=== PATIENT | female | born 1945 | race Caucasian/White ===

== ENCOUNTER → 2021-11-11 10:09 | Outpatient (BNVA) | payer MEDICARE, SELFPAY | PROVIDERS: Family Provider Family Medicine; Visit Provider Family Medicine | DX: I10 Essential (primary) hypertension (principal); Z76.89 Persons encountering health services in other specified circumstances; Z53.20 Procedure and treatment not carried out because of patient's decision for unspecified reasons | CPT/HCPCS: 80053; 80061; 85025 ==

== ENCOUNTER → 2022-05-12 10:01 | Outpatient (BNVA) | payer MEDICARE, SELFPAY | PROVIDERS: Family Provider Family Medicine; Visit Provider Family Medicine | DX: N18.30 Chronic kidney disease, stage 3 unspecified (principal); I10 Essential (primary) hypertension; N18.31 Chronic kidney disease, stage 3a | CPT/HCPCS: 80048 ==

== ENCOUNTER → 2022-11-03 10:04 | Outpatient (BNVA) | payer MEDICARE, SELFPAY | PROVIDERS: Family Provider Family Medicine; Visit Provider Family Medicine | DX: I10 Essential (primary) hypertension (principal) | CPT/HCPCS: 80053; 80061; 85025 ==

== ENCOUNTER → 2023-05-11 09:23 | Outpatient (BNVA) | payer MEDICARE, SELFPAY | PROVIDERS: Family Provider Family Medicine; Visit Provider Family Medicine | DX: I10 Essential (primary) hypertension (principal) | CPT/HCPCS: 80048; 82043 ==

== ENCOUNTER 2023-08-02 18:45 | Emergency (ER) | payer MEDICARE, SELFPAY ==
[2023-08-02 18:51] VITALS: BP 141/81; PULSE 85; RESP 16; TEMP 37.2; O2SAT 97
--- NOTE | 2023-08-02 19:03 | XRR_ITS ---
PROCEDURE INFORMATION: Exam: XR Chest Exam date and time: 08/02/2023 7:21 PM Age: 78 years old Clinical indication: Other: Weakness; Additional info: Weak TECHNIQUE: Imaging protocol: Radiologic exam of the chest. Views: 1 view. COMPARISON: No relevant prior studies available. FINDINGS: Lungs: No consolidation. Pleural spaces: No pleural effusion. No pneumothorax. Heart/Mediastinum: No cardiomegaly. Bones/joints: No acute findings. XR/XR chest 1V portable [id number] IMPRESSION: No acute findings.
--- NOTE | 2023-08-02 19:03 | ECG_ITS ---
[facility] Test Date: 2023-08-02 Pat Name: Britany Alvarenga Department: Room: Gender: Female Personal Trainer: : 1945 Requested By: Hakeem Shaffer Order Number: [id number] Ok MD: Guille Pollock M.D. Measurements Intervals [place] Rate: 82 P: 61 KS: 153 QRS: 66 QRSD: 74 T: 47 QT: 369 QTc: 432 Interpretive Statements SINUS RHYTHM No previous ECG available for comparison Electronically Signed On 08-03-2023 12:31:50 CDT by Guille Pollock M.D. [id number]
[2023-08-02 19:09] LABS: Basophils % 0.6 %; Eosinophils # 0.1 10^3/uL (0.0-0.8); Hematocrit 38.9 % (36-47); Lymphocytes # 0.8 10^3/uL (0.8-4.8); Lymphocytes % 10.6 %; Mean Corpuscular HGB Conc 33.9 g/dL (30-55); Mean Corpuscular Hemoglobin 29.7 pg (27-33); Mean Corpuscular Volume 87.6 fl (85-98); Mean Platelet Volume 9.1 fL (7.4-10.4); Monocytes # 0.4 10^3/uL (0.2-0.9); Monocytes % 5.7 %; Neutrophils # 5.87 10^3/uL (1.8-7.7); Nucleated Red Blood Cells % 0 %; Platelet Count 202 10^3/cmm (157-399); Red Blood Count 4.44 10^6/uL (3.85-5.65); Red Cell Distribution Width 13.1 % (12.1-15.1); White Blood Count 7.16 10^3/uL (3.29-11.43)
--- NOTE | 2023-08-02 19:16 | ED_ITS ---
Documented by User: RUTH Mcgovern 08/02/23 21:18 HPI - Weakness 2 General: Chief complaint: Weakness Stated complaint: Gen weakness Time Seen by Provider: 08/02/23 18:56 Source: patient Mode of arrival: EMS Limitations: no limitations History of Present Illness: This patient is a 78-year-old female presenting to the emergency department via EMS due to weakness for the past week. She notes that her symptoms began last Wednesday with some upper respiratory symptoms. While she states these have gradually subsided, her weakness and decreased appetite have persisted as she states today was her worst day. She is from [facility] and states she takes care of herself, however is only ambulatory via wheelchair. She states specifically that she is having increased difficulty transferring from wheelchair to bed and vice versa. She does note that her fluid intake has decreased over the past week as well as food. She does note past medical history of hypertension, but states she is otherwise healthy. She is denying any breathing difficulties, chest pain, urinary symptoms, dizziness or lightheadedness, palpitations, syncope, or any other symptoms. She denies any recent medication changes. MD Complaint: generalized weakness Onset (ago): week(s) Duration: constant Context: other (Preceded by upper respiratory infection) Associated symptoms: Reports decreased appetite; Denies chest pain, chills, confusion, dysuria, fever(s), headache(s), nausea or vomiting Review of Systems 2 General: Reports: 10 or more systems reviewed and unremarkable except in HPI and below Const: Reports: change in appetite and other (Weakness); Denies: fever(s), chills or fatigue Eyes: Denies: change in vision ENMT: Denies: throat pain, ear or mastoid pain or nasal discharge Card: Denies: chest pain, palpitations, swelling of feet/ankles or lightheadedness Resp: Denies: dyspnea, productive cough or wheezing GI: Denies: abdominal pain, nausea, vomiting, diarrhea or constipation : Denies: flank pain, difficulty voiding, dysuria or urinary frequency Musc: Denies: neck pain, back pain or joint pain Skin/Breast: Denies: rash Neuro: Denies: headache(s), numbness in extremities, frequent falls, dizziness, confusion or behavioral changes PFSH ED 2 PFSH: Medical History Kidney disease, chronic, stage III (GFR 30-59 ml/min) Benign essential HTN Surgical History No significant past surgical history Family History Other CAD (coronary artery disease) Dementia Hypertension Denies family history of Diabetes Clotting disorder Hyperlipidemia Psychiatric illness Chronic kidney disease (CKD) Suicide Anesthesia complication Bleeding disorder Family history of premature coronary artery disease Lung disease Cancer Stroke Social History Smoking and tobacco/nicotine status: never used tobacco/nicotine Alcohol intake: current Alcohol intake frequency: 0-2 Drinks per Day Substance/Drug Use: never Adopted: No Caregiver/support person: No Lives independently: No Housing: Assisted Living Facility Physical Exam 2 Const: COMMON NORMALS: no acute distress, patient oriented x3 and no limitations GENERAL APPEARANCE: cooperative, comfortable and well developed ORIENTATION/CONSCIOUSNESS: Yes awake, Yes oriented to person, Yes oriented to place and Yes oriented to time HENMT: COMMON NORMALS: normocephalic, atraumatic and hearing grossly normal bilaterally HEAD & SCALP: normocephalic and atraumatic Eye: COMMON NORMALS: Equal, round and reactive pupils present, EOMs intact bilaterally and conjunctivae normal CONJUNCTIVA: Yes conjunctivae normal P UPIL: Yes Equal, round and reactive pupils present Neck/C-Spine: COMMON NORMALS: full ROM, supple and no JVD Resp: COMMON NORMALS: normal respiratory effort, No retractions, No use of accessory muscles and clear to auscultation bilaterally AUSCULTATION: clear to auscultation bilaterally Cardio: COMMON NORMALS: no JVD, regular rate, regular rhythm, No clicks present (Cardio), No murmurs present (Cardio) and No rub (Cardio) RATE: r egular rate RHYTHM: regular rhythm GI: COMMON NORMALS: Normal to inspection, nondistended, normoactive bowel sounds present, Soft to palpation and non-tender AUSCULTATION: Yes normoactive bowel sounds PALPATION: Yes Soft to palpation RECTAL EXAM: d eferred : COMMON NORMALS: Yes no CVA tenderness BLADDER/KIDNEY EXAM: Yes no CVA tenderness Back/Pelvis: COMMON NORMALS: no CVA tenderness, thoracic and lumbar spine normal to inspection, no thoracic nor lumbar tenderness and thoraco-lumbar ROM normal Extremity: COMMON NORMALS: normal to inspection, full ROM and capillary refill normal Neuro: COMMON NORMALS: patient oriented x3, CN's II-XII intact bilaterally, moves all extremities, no focal motor deficits and no sensory deficits noted SENSORIUM/ORIENTATION: Yes oriented to person, Yes oriented to place and Yes oriented to time Psych: COMMON NORMALS: mental status grossly normal and Normal thought process present THOUGHT PROCESS: Normal thought process present Skin: COMMON NORMALS: no rashes or lesions noted GENERAL SKIN EXAM: no rashes or lesions noted Course 2 Vital Signs: Vital signs: Vital Signs Temperature 98.9 F 08/02/23 18:51 Pulse Rate 84 08/02/23 21:22 Respiratory Rate 16 08/02/23 20:10 Blood Pressure 141/80 08/02/23 20:10 Pulse Oximetry 97 08/02/23 21:22 Oxygen Delivery Me thod Room Air 08/02/23 20:10 MDM - Weakness Medical Decision Making This patient was seen and evaluated due to 1 week of weakness. On arrival patient's vitals normal including afebrile and 97% O2 saturation on room air. Vitals have remained stable throughout ED course. Examination unremarkable. Neurologic exam intact. She is reportedly wheelchair-bound at all times. Laboratory evaluation essentially unremarkable, no signs of infection or anemia. She does state to me that she has 1 kidney and has stage III CKD, BUN and creatinine seem to be baseline. Her UA, all negative leukocytes and nitrates, does show evidence of bacteria and I will treat her for a presumed small UTI. This can explain her weakness, however due to her reported significant decrease intake, I believe this is potentially causing a lot of her weakness as well. I had a thorough conversation with him in regards to importance of drinking plenty of fluids, to which she agrees. She will be discharged back to the [facility], awaiting transportation. Return precautions given. Lab Data I reviewed the patient's lab results. 08/02/23 18:54 08/02/23 18:54 Radiology Impressions Chest X-Ray 08/02/23 19:03 IMPRESSION: No acute findings. Laboratory Results WBC 7.16 10^3/uL (3.29-11.43) 08/02/23 18:54 RBC 4.44 10^6/uL (3.85-5.65) 08/02/23 18:54 Hgb 13.20 g/dL (11.27-16.99) 08/02/23 18:54 Hct 38.9 % (36-47) 08/02/23 18:54 MCV 87.6 fl (85-98) 08/02/23 18:54 MCH 29.7 pg (27-33) 08/02/23 18:54 MCHC 33.9 g/dL (30-55) 08/02/23 18:54 RDW 13.1 % (12.1-15.1) 08/02/23 18:54 Plt Count 202 10^3/cmm (157-399) 08/02/23 18:54 MPV 9.1 fL (7.4-10.4) 08/02/23 18:54 Neut % (Auto) 82.0 % 08/02/23 18:54 Lymph % (Auto) 10.6 % 08/02/23 18:54 [place] % (Auto) 5.7 % 08/02/23 18:54 Eos % (Auto) 1.0 % 08/02/23 18:54 Baso % (Auto) 0.6 % 08/02/23 18:54 Neut # (Auto) 5.87 10^3/uL (1.8-7.7) 08/02/23 18:54 Lymph # (Auto) 0.8 10^3/uL (0.8-4.8) 08/02/23 18:54 [place] # (Auto) 0.4 10^3/uL (0.2-0.9) 08/02/23 18:54 Eos # (Auto) 0.1 10^3/uL (0.0-0.8) 08/02/23 18:54 Baso # (Auto) 0.0 10^3/uL (0.0-0.1) 08/02/23 18:54 Nucleated RBC % (auto) 0 % 08/02/23 18:54 Nucleated RBCs # 0.0 /100WBC 08/02/23 18:54 Sodium 145 mmol/L (136-145) 08/02/23 18:54 Potassium 4.0 mmol/L (3.5-5.1) 08/02/23 18:54 Chloride 105 mmol/L (98-107) 08/02/23 18:54 Carbon Dioxide 24 mmol/L (22-29) 08/02/23 18:54 Anion Gap 20.0 (5-19) H 08/02/23 18:54 BUN 40 mg/dL (8-23) H 08/02/23 18:54 Creatinine 1.2 mg/dL (0.5-0.9) H 08/02/23 18:54 GFR Calculation Not Reportable 08/02/23 18:54 Glucose 119 mg/dL (65-115) H 08/02/23 18:54 Calculated Osmolality 311 mOsm/kg (285-295) H 08/02/23 18:54 Calcium 9.8 mg/dL (8.5-10.5) 08/02/23 18:54 Total Bilirubin 0.4 mg/dL (0.15-1.2) 08/02/23 18:54 AST 26 U/L (0-32) 08/02/23 18:54 ALT 21 U/L (0-33) 08/02/23 18:54 Alkaline Phosphatase 98 U/L (35-105) 08/02/23 18:54 Creatine Kinase 195 U/L (26-192) H 08/02/23 18:54 Total Protein 7.8 g/dL (6.6-8.7) 08/02/23 18:54 Albumin 4.2 g/dL (3.5-5.2) 08/02/23 18:54 Globulin 3.6 g/dL (1.3-4.6) 08/02/23 18:54 Urine Color Yellow (Yellow) 08/02/23 19:23 Urine Appearance Sl hazy (CLEAR) A 08/02/23 19:23 Urine pH 5 (5-7) 08/02/23 19:23 Ur Specific [place] 1.015 (1.005-1.030) 08/02/23 19:23 Urine Protein 2+ (Negative) H 08/02/23 19:23 Urine Glucose (UA) Norm (Normal) 08/02/23 19:23 Urine Ketones 2+ (Negative) H 08/02/23 19:23 Urine Blood 3+ (Negative) H 08/02/23 19:23 Urine Nitrate Negative (Negative) 08/02/23 19:23 Urine Bilirubin Neg (Negative) 08/02/23 19:23 Urine Urobilinogen Neg mg/dL (Negative) 08/02/23 19:23 Ur Leukocyte Esterase Negative (Negative) 08/02/23 19:23 Urine RBC 25-40 /hpf (0-2) H 08/02/23 19:23 Urine WBC 0-4 /hpf (0-5) H 08/02/23 19:23 Ur Squamous Epith Cells None /hpf (0-5) 08/02/23 19:23 Ur Transition Epith Cell 0-4 /hpf 08/02/23 19:23 Amorphous Sediment Not Reportable 08/02/23 19:23 Urine Bacteria 1+ /hpf (NONE) H 08/02/23 19:23 Coarse Granular Casts 0-4 /lpf H 08/02/23 19:23 Urine Mucus 3+ /hpf 08/02/23 19:23 All radiology interpretation(s) finalized by discharge Discharge Plan Discharge Patient Disposition: Home Clinical Impression: Urinary tract infection Condition: Stable Prescriptions: New cefdinir 300 mg capsule 300 mg PO BID 7 Days Qty: 14 0RF No Action [id number] 600 mg calcium- 800 unit-50 mg tablet 1 tab PO DAILY glucosamine-chondroitin 900 mg tablet PO magnesium hydroxide 400 mg (170 mg magnesium) tablet,chewable PO multivitamin Tablet 1 tab PO DAILY cholecalciferol (vitamin D3) 25 mcg (1,000 unit) capsule 25 mcg PO DAILY carvedilol 6.25 mg tablet 6.25 mg PO BID Qty: 180 1RF Rx Instructions: must administer with a meal/food azelastine 137 mcg (0.1 %) aerosol,spray 1 spray intranasal BID Qty: 30 1RF Rx Instructions: administer into each nostril amlodipine 2.5 mg tablet 2.5 mg PO DAILY Qty: 90 1RF Rx Instructions: Take with 5 mg pill amlodipine 5 mg tablet 5 mg PO DAILY Qty: 90 1RF enalapril maleate 10 mg tablet 10 mg PO BID Qty: 180 1RF Discharge Orders: Discharge ED (Routine); Ordered 08/02/23 Ordered By: Hakeem Lopez Discharge Diet: Usual diet Discharge Activity: Resume usual activity Patient Instructions: Urinary Tract Infection in Women (ED) Activity Restrictions/Additional Instructions: Cefdinir. Return with any new or worsening symptoms. Plenty of fluids. Follow-up with primary care provider as needed. Coding Level of Care Code ED Immigration Lawyer for Chg Fwd Documented by User: Meño Bauman DO 08/04/23 06:01 HPI - Weakness 2 General: Chief complaint: Weakness Stated complaint: Gen weakness Time Seen by Provider: 08/02/23 18:56 PFSH ED 2 PFSH: Medical History Kidney disease, chronic, stage III (GFR 30-59 ml/min) Benign essential HTN Surgical History No significant past surgical history Family History Other CAD (coronary artery disease) Dementia Hypertension Denies family history of Diabetes Clotting disorder Hyperlipidemia Psychiatric illness Chronic kidney disease (CKD) Suicide Anesthesia complication Bleeding disorder Family history of premature coronary artery disease Lung disease Cancer Stroke Social History Smoking and tobacco/nicotine status: never used tobacco/nicotine Alcohol intake: current Alcohol intake frequency: 0-2 Drinks per Day Substance/Drug Use: never Adopted: No Caregiver/support person: No Lives independently: No Housing: Assisted Living Facility Course 2 Vital Signs: Vital signs: Vital Signs Temperature 98.9 F 08/02/23 18:51 Pulse Rate 84 08/02/23 21:22 Respiratory Rate 16 08/02/23 20:10 Blood Pressure 141/80 08/02/23 20:10 Pulse Oximetry 97 08/02/23 21:22 Oxygen Delivery Me thod Room Air 08/02/23 20:10 MDM - Weakness Medical Decision Making This patient was seen and evaluated due to 1 week of weakness. On arrival patient's vitals normal including afebrile and 97% O2 saturation on room air. Vitals have remained stable throughout ED course. Examination unremarkable. Neurologic exam intact. She is reportedly wheelchair-bound at all times. Laboratory evaluation essentially unremarkable, no signs of infection or anemia. She does state to me that she has 1 kidney and has stage III CKD, BUN and creatinine seem to be baseline. Her UA, all negative leukocytes and nitrates, does show evidence of bacteria and I will treat her for a presumed small UTI. This can explain her weakness, however due to her reported significant decrease intake, I believe this is potentially causing a lot of her weakness as well. I had a thorough conversation with him in regards to importance of drinking plenty of fluids, to which she agrees. She will be discharged back to the [facility], awaiting transportation. Return precautions given. Chart reviewed Lab Data 08/02/23 18:54 08/02/23 18:54 Radiology Impressions Chest X-Ray 08/02/23 19:03 IMPRESSION: No acute findings. Laboratory Results WBC 7.16 10^3/uL (3.29-11.43) 08/02/23 18:54 RBC 4.44 10^6/uL (3.85-5.65) 08/02/23 18:54 Hgb 13.20 g/dL (11.27-16.99) 08/02/23 18:54 Hct 38.9 % (36-47) 08/02/23 18:54 MCV 87.6 fl (85-98) 08/02/23 18:54 MCH 29.7 pg (27-33) 08/02/23 18:54 MCHC 33.9 g/dL (30-55) 08/02/23 18:54 RDW 13.1 % (12.1-15.1) 08/02/23 18:54 Plt Count 202 10^3/cmm (157-399) 08/02/23 18:54 MPV 9.1 fL (7.4-10.4) 08/02/23 18:54 Neut % (Auto) 82.0 % 08/02/23 18:54 Lymph % (Auto) 10.6 % 08/02/23 18:54 [place] % (Auto) 5.7 % 08/02/23 18:54 Eos % (Auto) 1.0 % 08/02/23 18:54 Baso % (Auto) 0.6 % 08/02/23 18:54 Neut # (Auto) 5.87 10^3/uL (1.8-7.7) 08/02/23 18:54 Lymph # (Auto) 0.8 10^3/uL (0.8-4.8) 08/02/23 18:54 [place] # (Auto) 0.4 10^3/uL (0.2-0.9) 08/02/23 18:54 Eos # (Auto) 0.1 10^3/uL (0.0-0.8) 08/02/23 18:54 Baso # (Auto) 0.0 10^3/uL (0.0-0.1) 08/02/23 18:54 Nucleated RBC % (auto) 0 % 08/02/23 18:54 Nucleated RBCs # 0.0 /100WBC 08/02/23 18:54 Sodium 145 mmol/L (136-145) 08/02/23 18:54 Potassium 4.0 mmol/L (3.5-5.1) 08/02/23 18:54 Chloride 105 mmol/L (98-107) 08/02/23 18:54 Carbon Dioxide 24 mmol/L (22-29) 08/02/23 18:54 Anion Gap 20.0 (5-19) H 08/02/23 18:54 BUN 40 mg/dL (8-23) H 08/02/23 18:54 Creatinine 1.2 mg/dL (0.5-0.9) H 08/02/23 18:54 GFR Calculation Not Reportable 08/02/23 18:54 Glucose 119 mg/dL (65-115) H 08/02/23 18:54 Calculated Osmolality 311 mOsm/kg (285-295) H 08/02/23 18:54 Calcium 9.8 mg/dL (8.5-10.5) 08/02/23 18:54 Total Bilirubin 0.4 mg/dL (0.15-1.2) 08/02/23 18:54 AST 26 U/L (0-32) 08/02/23 18:54 ALT 21 U/L (0-33) 08/02/23 18:54 Alkaline Phosphatase 98 U/L (35-105) 08/02/23 18:54 Creatine Kinase 195 U/L (26-192) H 08/02/23 18:54 Total Protein 7.8 g/dL (6.6-8.7) 08/02/23 18:54 Albumin 4.2 g/dL (3.5-5.2) 08/02/23 18:54 Globulin 3.6 g/dL (1.3-4.6) 08/02/23 18:54 Urine Color Yellow (Yellow) 08/02/23 19:23 Urine Appearance Sl hazy (CLEAR) A 08/02/23 19:23 Urine pH 5 (5-7) 08/02/23 19:23 Ur Specific [place] 1.015 (1.005-1.030) 08/02/23 19:23 Urine Protein 2+ (Negative) H 08/02/23 19:23 Urine Glucose (UA) Norm (Normal) 08/02/23 19:23 Urine Ketones 2+ (Negative) H 08/02/23 19:23 Urine Blood 3+ (Negative) H 08/02/23 19:23 Urine Nitrate Negative (Negative) 08/02/23 19:23 Urine Bilirubin Neg (Negative) 08/02/23 19:23 Urine Urobilinogen Neg mg/dL (Negative) 08/02/23 19:23 Ur Leukocyte Esterase Negative (Negative) 08/02/23 19:23 Urine RBC 25-40 /hpf (0-2) H 08/02/23 19:23 Urine WBC 0-4 /hpf (0-5) H 08/02/23 19:23 Ur Squamous Epith Cells None /hpf (0-5) 08/02/23 19:23 Ur Transition Epith Cell 0-4 /hpf 08/02/23 19:23 Amorphous Sediment Not Reportable 08/02/23 19:23 Urine Bacteria 1+ /hpf (NONE) H 08/02/23 19:23 Coarse Granular Casts 0-4 /lpf H 08/02/23 19:23 Urine Mucus 3+ /hpf 08/02/23 19:23 Discharge Plan Discharge Patient Disposition: Home Clinical Impression: Urinary tract infection Condition: Stable Prescriptions: New cefdinir 300 mg capsule 300 mg PO BID 7 Days Qty: 14 0RF No Action [id number] 600 mg calcium- 800 unit-50 mg tablet 1 tab PO DAILY glucosamine-chondroitin 900 mg tablet PO magnesium hydroxide 400 mg (170 mg magnesium) tablet,chewable PO multivitamin Tablet 1 tab PO DAILY cholecalciferol (vitamin D3) 25 mcg (1,000 unit) capsule 25 mcg PO DAILY carvedilol 6.25 mg tablet 6.25 mg PO BID Qty: 180 1RF Rx Instructions: must administer with a meal/food azelastine 137 mcg (0.1 %) aerosol,spray 1 spray intranasal BID Qty: 30 1RF Rx Instructions: administer into each nostril amlodipine 2.5 mg tablet 2.5 mg PO DAILY Qty: 90 1RF Rx Instructions: Take with 5 mg pill amlodipine 5 mg tablet 5 mg PO DAILY Qty: 90 1RF enalapril maleate 10 mg tablet 10 mg PO BID Qty: 180 1RF Discharge Orders: Discharge ED (Routine); Ordered 08/02/23 Ordered By: Haekem Lopez Discharge Diet: Usual diet Discharge Activity: Resume usual activity Patient Instructions: Urinary Tract Infection in Women (ED) Activity Restrictions/Additional Instructions: Cefdinir. Return with any new or worsening symptoms. Plenty of fluids. Follow-up with primary care provider as needed. Coding Level of Care Code ED Immigration Lawyer for Bianca Ashley
[2023-08-02 19:20] LABS: Alanine Aminotransferase 21 U/L (0-33); Albumin Level 4.2 g/dL (3.5-5.2); Alkaline Phosphatase 98 U/L (35-105); Aspartate Amino Transferase 26 U/L (0-32); Blood Urea Nitrogen 40 mg/dL (8-23); Calcium 9.8 mg/dL (8.5-10.5); Carbon Dioxide 24 mmol/L (22-29); Chloride 105 mmol/L (98-107); Creatine Phosphokinase 195 U/L (26-192); Creatinine Clr Calc Pharmacy 35.7772; Globulin 3.6 g/dL (1.3-4.6); Glucose 119 mg/dL (65-115); Osmolality Calculated 311 mOsm/kg (285-295); Sodium 145 mmol/L (136-145); Total Bilirubin 0.4 mg/dL (0.15-1.2); Total Protein 7.8 g/dL (6.6-8.7)
[2023-08-02 19:31] VITALS: BP 133/89; PULSE 90; O2SAT 96
[2023-08-02] MEDS: sodium chloride 0.9% 1,000 ML 999 ML IV (20:09)
[2023-08-02 20:10] VITALS: BP 141/80; PULSE 94; RESP 16; O2SAT 96
--- NOTE | 2023-08-02 20:13 | PC.NURSE ---
This nurse went to assist pt onto a bedpan, while assisting resident onto the bedpan, this nurse found 2 larger sized pieces of glass on skin of left buttock, with a few smaller shards of glass, all glass was removed from underwear and pt. this nurse assessed skin and noted a small superficial cut most likely from glass. pt states that ems had made pt breakfast a few days ago but pt had dropped glass plate that then broke. not actively bleeding at this time.
[2023-08-02 20:35] LABS: Add Urine Microscopic? YES; Bilirubin Urine Neg (Negative); Blood Urine 3+ (Negative); Glucose Urine UA Norm (Normal); Ketones Urine 2+ (Negative); Leukocyte Esterase Urine Negative (Negative); Nitrate Urine Negative (Negative); Protein Urine 2+ (Negative); Specific Gravity, Urine 1.015 (1.005-1.030); Urine Color Yellow (Yellow); Urobilinogen Urine Neg (Negative); pH Urine 5 (5-7)
[2023-08-02 20:36] LABS: Add Urine Culture? Yes; Bacteria Urine 1+ /hpf; Coarse Granular Casts Urine 0-4 /lpf; Mucus Urine 3+ /hpf; RBC Urine 25-40 /hpf (0-2); Transitional Epi Cells Urine 0-4 /hpf; Urine Appearance SL Hazy (CLEAR); WBC Urine 0-4 /hpf (0-5)
[2023-08-02 21:22] VITALS: PULSE 84; O2SAT 97
== END 2023-08-02 21:23 | disposition home or self-care (01) ==
PROVIDERS: Emergency Provider Physician Assistant
DX: N39.0 Urinary tract infection, site not specified (principal); I12.9 Hypertensive chronic kidney disease with stage 1 through stage 4 chronic kidney disease, or unspecified chronic kidney disease; N18.30 Chronic kidney disease, stage 3 unspecified
CPT/HCPCS: 71045; 80053; 81001; 82550; 85025; 87086; 93005; 96360; 99285; J7030

== ENCOUNTER 2023-08-04 13:32 | Emergency (ER) | payer MEDICARE, SELFPAY ==
[2023-08-04 13:37] VITALS: BP 167/75; PULSE 82; TEMP 36.4; O2SAT 99; BMI 26.5
--- NOTE | 2023-08-04 13:49 | XRR_ITS ---
PROCEDURE INFORMATION: Exam: XR Chest Exam date and time: 08/04/2023 1:55 PM Age: 78 years old Clinical indication: Other: Weakness TECHNIQUE: Imaging protocol: Radiologic exam of the chest. Views: 1 view. COMPARISON: CR (CHEST, ) 08/02/2023 7:21 PM FINDINGS: Lungs: Mild interstitial prominence. Pleural spaces: Unremarkable. No pleural effusion. No pneumothorax. Heart/Mediastinum: Large hiatal hernia. Bones/joints: Unremarkable. XR/XR chest 1V portable [id number] IMPRESSION: No acute findings.
--- NOTE | 2023-08-04 13:49 | W.ED.WEAKNES ---
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 Patient reportedly resides at the [facility]. She has been wheelchair-bound since 2005 but can transfer from wheelchair to bed/wheelchair to the bathroom. She states over the past 2 weeks or so she has become weak and has fallen from her wheelchair multiple times. Denies any injury sustained during her fall. She states she does not get dizzy or lightheaded. She states she is weak secondary to not eating that she has had a sinus infection and states that food does not smell or taste good. She was here in the emergency department 3 days ago for weakness and diagnosed with a possible UTI and placed on antibiotics. MD Complaint: generalized weakness Onset (ago): week(s) Duration: constant Location: generalized Migration: none Severity: moderate Relieving factors: none Exacerbating factors: other (not eating) Associated symptoms: Reports no associated symptoms; Denies chest pain, chills, confusion, dysuria, fever(s), headache(s), nausea, syncope or vomiting Review of Systems Const: Reports: change in appetite; Denies: fever(s), chills, body aches, fatigue or malaise Eyes: Denies: change in vision, blurry vision, photophobia, floaters or seeing flashes ENMT: Reports: nasal discharge and nasal congestion; Denies: throat pain, odynophagia, ear or mastoid pain or sinus pain Card: Denies: chest pain, palpitations, irregular heart rhythm, edema, swelling of feet/ankles, lightheadedness, syncope or dyspnea on exertion Resp: Denies: dyspnea, productive cough or pain on inspiration GI: Denies: abdominal pain, nausea, vomiting, heartburn or diarrhea : Denies: flank pain, difficulty voiding, dysuria, urinary frequency, urinary urgency or urinary hesitancy Musc: Denies: neck pain, back pain, extremity pain, extremity swelling or joint pain Skin/Breast: Denies: rash Neuro: Denies: headache(s), numbness in extremities, sensory changes, lack of coordination, dizziness, confusion, behavioral changes, Slurred speech present, difficulty communicating thoughts or seizure-like activity PFSH ED PFSH: Medical History Kidney disease, chronic, stage III (GFR 30-59 ml/min) Benign essential HTN Surgical History No significant past surgical history Family History Other CAD (coronary artery disease) Dementia Hypertension Denies family history of Diabetes Clotting disorder Hyperlipidemia Psychiatric illness Chronic kidney disease (CKD) Suicide Anesthesia complication Bleeding disorder Family history of premature coronary artery disease Lung disease Cancer Stroke Social History Smoking and tobacco/nicotine status: never used tobacco/nicotine Alcohol intake: current Alcohol intake frequency: 0-2 Drinks per Day Substance/Drug Use: never Adopted: No Caregiver/support person: No Lives independently: No Housing: Assisted Living Facility Physical Exam Const: COMMON NORMALS: no acute distress, average body habitus, patient oriented x3, no limitations, healthy appearing, alert and well nourished GENERAL APPEARANCE: cooperative ORIENTATION/CONSCIOUSNESS: Yes awake, Yes oriented to person, Yes oriented to place and Yes oriented to time HENMT: COMMON NORMALS: normocephalic and atraumatic HEAD & SCALP: normal to inspection, normocephalic and atraumatic FACE & SINUS: normal facial exam and sinuses nontender THROAT: posterior oropharynx normal and tonsils normal Eye: GENERAL EYE: appearance normal, both eyes and all related structures Neck/C-Spine: COMMON NORMALS: full ROM, no lymphadenopathy, supple and no meningeal signs Chest: COMMONS NORMALS: normal inspection of the chest Resp: COMMON NORMALS: normal respiratory effort and clear to auscultation bilaterally AUSCULTATION: clear to auscultation bilaterally Cardio: COMMON NORMALS: regular rate and regular rhythm RATE: regular rate RHYTHM: regular rhythm GI: COMMON NORMALS: Normal to inspection, nondistended, normoactive bowel sounds present, Soft to palpation, non-tender, No hepatosplenomegaly present and no masses PALPATION: Yes Soft to palpation and Yes No hepatosplenomegaly present : COMMON NORMALS: Yes no CVA tenderness BLADDER/KIDNEY EXAM: Yes no CVA tenderness Back/Pelvis: COMMON NORMALS: no CVA tenderness and thoracic and lumbar spine normal to inspection Extremity: COMMON NORMALS: normal to inspection, capillary refill normal, no clubbing, cyanosis or edema, no calf tenderness and no pedal edema NARRATIVE EXTREMITY EXAM: bilateral LE atrophy GENERAL: Yes normal exam except as noted Neuro: COMMON NORMALS: patient oriented x3, moves all extremities, no focal motor deficits and no sensory deficits noted SENSORIUM/ORIENTATION: Yes alert, Yes oriented to person, Yes oriented to place and Yes oriented to time MENINGEAL SIGNS: Yes no meningeal signs GAIT: Yes Unable to assess gait Skin: COMMON NORMALS: no rashes or lesions noted GENERAL SKIN EXAM: no rashes or lesions noted Course Vital Signs: Vital signs: Vital Signs Temperature 97.6 F 08/04/23 13:37 Pulse Rate 77 08/04/23 16:22 Respiratory Rate 16 08/04/23 16:22 Blood Pressure 154/74 08/04/23 16:22 Pulse Oximetry 98 08/04/23 16:22 Oxygen Delivery Me thod Room Air 08/04/23 15:41 MDM - Weakness Medical Decision Making Patient has no localizing symptoms to her weakness. Her vital signs are stable. Blood work overall is fairly unremarkable. She does have CKD. Her BUN/Cr are at/near baseline. Remainder of chemistry is unremarkable. UA showing microscopic hematuria. She does not have any UTI-like symptoms. No flank pain or abdominal pain. Culture from ED visit a few days ago grew superficial [place]. She was placed on antibiotics on this visit. Recommend follow up with her PCP and/or box chipper. CXR is unremarkable. Patient is requesting alf facility. She is spoken to our case management team is willing to pay [id number] for this. We have contacted [facility] who has reportedly accepted patient and will be coming to get her from the emergency department. Lab Data 08/04/23 14:20 08/04/23 14:20 Radiology Impressions Chest X-Ray 08/04/23 13:49 IMPRESSION: No acute findings. Laboratory Results WBC 7.88 10^3/uL (3.29-11.43) 08/04/23 14:20 RBC 4.10 10^6/uL (3.85-5.65) 08/04/23 14:20 Hgb 12.10 g/dL (11.27-16.99) 08/04/23 14:20 Hct 36.3 % (36-47) 08/04/23 14:20 MCV 88.5 fl (85-98) 08/04/23 14:20 MCH 29.5 pg (27-33) 08/04/23 14:20 MCHC 33.3 g/dL (30-55) 08/04/23 14:20 RDW 13.2 % (12.1-15.1) 08/04/23 14:20 Plt Count 148 10^3/cmm (157-399) L 08/04/23 14:20 MPV 8.9 fL (7.4-10.4) 08/04/23 14:20 Neut % (Auto) 78.9 % 08/04/23 14:20 Lymph % (Auto) 12.1 % 08/04/23 14:20 [place] % (Auto) 6.5 % 08/04/23 14:20 Eos % (Auto) 0.9 % 08/04/23 14:20 Baso % (Auto) 0.6 % 08/04/23 14:20 Neut # (Auto) 6.22 10^3/uL (1.8-7.7) 08/04/23 14:20 Lymph # (Auto) 1.0 10^3/uL (0.8-4.8) 08/04/23 14:20 [place] # (Auto) 0.5 10^3/uL (0.2-0.9) 08/04/23 14:20 Eos # (Auto) 0.1 10^3/uL (0.0-0.8) 08/04/23 14:20 Baso # (Auto) 0.1 10^3/uL (0.0-0.1) 08/04/23 14:20 Nucleated RBC % (auto) 0 % 08/04/23 14:20 Nucleated RBCs # 0.0 /100WBC 08/04/23 14:20 Sodium 142 mmol/L (136-145) 08/04/23 14:20 Potassium 3.7 mmol/L (3.5-5.1) 08/04/23 14:20 Chloride 106 mmol/L (98-107) 08/04/23 14:20 Carbon Dioxide 22 mmol/L (22-29) 08/04/23 14:20 Anion Gap 17.7 (5-19) 08/04/23 14:20 BUN 32 mg/dL (8-23) H 08/04/23 14:20 Creatinine 1.1 mg/dL (0.5-0.9) H 08/04/23 14:20 GFR Calculation Not Reportable 08/04/23 14:20 Glucose 90 mg/dL (65-115) 08/04/23 14:20 Calculated Osmolality 300 mOsm/kg (285-295) H 08/04/23 14:20 Calcium 9.1 mg/dL (8.5-10.5) 08/04/23 14:20 Total Bilirubin 0.5 mg/dL (0.15-1.2) 08/04/23 14:20 AST 20 U/L (0-32) 08/04/23 14:20 ALT 17 U/L (0-33) 08/04/23 14:20 Alkaline Phosphatase 87 U/L (35-105) 08/04/23 14:20 Creatine Kinase 105 U/L (26-192) 08/04/23 14:20 Total Protein 7.0 g/dL (6.6-8.7) 08/04/23 14:20 Albumin 3.7 g/dL (3.5-5.2) 08/04/23 14:20 Globulin 3.3 g/dL (1.3-4.6) 08/04/23 14:20 Urine Color Yellow (Yellow) 08/04/23 14:08 Urine Appearance Hazy (CLEAR) A 08/04/23 14:08 Urine pH 5 (5-7) 08/04/23 14:08 Ur Specific [place] 1.015 (1.005-1.030) 08/04/23 14:08 Urine Protein 3+ (Negative) H 08/04/23 14:08 Urine Glucose (UA) Norm (Normal) 08/04/23 14:08 Urine Ketones 2+ (Negative) H 08/04/23 14:08 Urine Blood 3+ (Negative) H 08/04/23 14:08 Urine Nitrate Negative (Negative) 08/04/23 14:08 Urine Bilirubin Neg (Negative) 08/04/23 14:08 Urine Urobilinogen Norm mg/dL (Negative) 08/04/23 14:08 Ur Leukocyte Esterase Negative (Negative) 08/04/23 14:08 Urine RBC >100 /hpf (0-2) H 08/04/23 14:08 Urine WBC 0-4 /hpf (0-5) H 08/04/23 14:08 Ur Squamous Epith Cells 0-4 /hpf (0-5) H 08/04/23 14:08 Ur Transition Epith Cell 0-4 /hpf 08/04/23 14:08 Amorphous Sediment Trace /hpf 08/04/23 14:08 Urine Bacteria Trace /hpf (NONE) 08/04/23 14:08 Urine Mucus None /hpf 08/04/23 14:08 All radiology interpretation(s) finalized by discharge Discharge Plan Discharge Patient Disposition: Home Clinical Impression: Generalized weakness Hematuria Qualifiers: Hematuria type: asymptomatic microscopic Qualified Code(s): R31.21 - Asymptomatic microscopic hematuria Condition: Stable Prescriptions: No Action [id number] 600 mg calcium- 800 unit-50 mg tablet 1 tab PO DAILY glucosamine-chondroitin 900 mg tablet 900 mg PO DAILY magnesium hydroxide 400 mg (170 mg magnesium) tablet,chewable 400 mg PO DAILY multivitamin Tablet 1 tab PO DAILY cholecalciferol (vitamin D3) 25 mcg (1,000 unit) capsule 25 mcg PO DAILY carvedilol 6.25 mg tablet 6.25 mg PO BID Qty: 180 1RF Rx Instructions: must administer with a meal/food amlodipine 2.5 mg tablet 2.5 mg PO DAILY Qty: 90 1RF Rx Instructions: ALONG WITH 5 MG TABLET TO=7.5MG amlodipine 5 mg tablet 5 mg PO DAILY Qty: 90 1RF Rx Instructions: ALONG WITH 2.5MG TO=7.5MG DAILY enalapril maleate 10 mg tablet 10 mg PO BID Qty: 180 1RF cefdinir 300 mg capsule 300 mg PO BID 7 Days Qty: 14 0RF Calcium 500 500 mg calcium (1,250 mg) Tablet 500 mg PO DAILY Discharge Orders: Discharge ED (Routine); Ordered 08/04/23 Ordered By: Lori Galindo Activity Restrictions/Additional Instructions: As we discussed I would like you to follow-up with your primary care provider or your box chipper if you have one for further evaluation of your microscopic hematuria (blood in your urine). You need to return the emergency department for severe abdominal pain, flank pain, burning or painful urination, inability to urinate, clots in your urine, or any other concerns you may have. Coding Level of Care Code ED Laser Specialist for Bianca Ashley
[2023-08-04 14:30] LABS: Basophils # 0.1 10^3/uL (0.0-0.1); Basophils % 0.6 %; Eosinophils # 0.1 10^3/uL (0.0-0.8); Eosinophils % 0.9 %; Hematocrit 36.3 % (36-47); Lymphocytes % 12.1 %; Mean Corpuscular HGB Conc 33.3 g/dL (30-55); Mean Corpuscular Hemoglobin 29.5 pg (27-33); Mean Corpuscular Volume 88.5 fl (85-98); Mean Platelet Volume 8.9 fL (7.4-10.4); Monocytes # 0.5 10^3/uL (0.2-0.9); Monocytes % 6.5 %; Neutrophils # 6.22 10^3/uL (1.8-7.7); Neutrophils % 78.9 %; Nucleated Red Blood Cells % 0 %; Platelet Count 148 10^3/cmm (157-399); Red Cell Distribution Width 13.2 % (12.1-15.1); White Blood Count 7.88 10^3/uL (3.29-11.43)
--- NOTE | 2023-08-04 14:31 | PC.SOCIAL ---
Faxed referral to [facility] Cm was called to come see pt to discuss a snf. Strip Picker explained to her that she is not elgible to go to a snf under her Medicare & will have to private pay in order to go. Strip Picker discussed the cost per day/month. She said she prefers [facility] & is willing to private pay at a SNF. A choice letter filled out & placed in ER chart to be scanned in. Pt was getting an IV & was not able to sign. Cm faxed ER notes to [facility] & called & updated Gillian. She said they will review. Pt said she has no family that can take her to [facility] & will need a ride. Strip Picker updated ER Chemists of pt's plan.
[2023-08-04 14:33] LABS: Add Urine Microscopic? YES; Bilirubin Urine Neg (Negative); Blood Urine 3+ (Negative); Glucose Urine UA Norm (Normal); Ketones Urine 2+ (Negative); Leukocyte Esterase Urine Negative (Negative); Nitrate Urine Negative (Negative); Protein Urine 3+ (Negative); Specific Gravity, Urine 1.015 (1.005-1.030); Urine Appearance Hazy (CLEAR); Urine Color Yellow (Yellow); Urobilinogen Urine Norm (Negative); pH Urine 5 (5-7)
[2023-08-04 14:42] LABS: Add Urine Culture? Yes; Amorphous Sediment Urine TRACE /hpf; Bacteria Urine TRACE /hpf; RBC Urine >100 /hpf (0-2); Squamous Epithelial Cell Urine 0-4 /hpf (0-5); Transitional Epi Cells Urine 0-4 /hpf; WBC Urine 0-4 /hpf (0-5)
--- NOTE | 2023-08-04 14:42 | ECG_ITS ---
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 Measurements Intervals [place] Rate: 73 P: 52 VT: 139 QRS: 47 QRSD: 76 T: 41 QT: 379 QTc: 420 Interpretive Statements SINUS RHYTHM Compared to ECG 08/02/2023 20:12:56 No significant changes Electronically Signed On 08-04-2023 15:31:06 CDT by Ky Hyde M.D. [id number]
[2023-08-04 14:48] LABS: Alanine Aminotransferase 17 U/L (0-33); Albumin Level 3.7 g/dL (3.5-5.2); Alkaline Phosphatase 87 U/L (35-105); Anion Gap 17.7 (5-19); Aspartate Amino Transferase 20 U/L (0-32); Blood Urea Nitrogen 32 mg/dL (8-23); Calcium 9.1 mg/dL (8.5-10.5); Carbon Dioxide 22 mmol/L (22-29); Chloride 106 mmol/L (98-107); Creatine Phosphokinase 105 U/L (26-192); Creatinine Clr Calc Pharmacy 39.0297; Globulin 3.3 g/dL (1.3-4.6); Glucose 90 mg/dL (65-115); Osmolality Calculated 300 mOsm/kg (285-295); Potassium 3.7 mmol/L (3.5-5.1); Sodium 142 mmol/L (136-145); Total Bilirubin 0.5 mg/dL (0.15-1.2)
--- NOTE | 2023-08-04 15:13 | PC.SOCIAL ---
[facility] accepts Gillian from [facility] called & said they can accept pt. She said they will need the d/c paperwork & the nurse to call them report. She said they can come get the pt before 1600 & the pt will owe the amount of $3,136.00 today. Beach Expert called the ER & updated Jill of all of this. She said okay & she will have Zari call report. No other needs voiced for Cm.
[2023-08-04 15:41] VITALS: BP 145/75; PULSE 80; RESP 16; O2SAT 98
--- NOTE | 2023-08-04 15:45 | PC.PHAR ---
PT IS GOING TO [facility] TODAY 08/04/23
--- NOTE | 2023-08-04 15:59 | PC.NURSE ---
Report called to Martha ware [facility]. States they will contact transport and call us when they are on the way
[2023-08-04 16:22] VITALS: BP 154/74; PULSE 77; RESP 16; O2SAT 98
[2023-08-04 18:15] LABS: Adenovirus Not Detected (NOT DETECT); Chlamydia Pneumoniae Not Detected (NOT DETECT); Coronavirus 229E,HKU1,NL63,OC4 Not Detected (NOT DETECT); Human Metapneumovirus Not Detected (NOT DETECT); Human Rhinovirus/Enterovirus Not Detected (NOT DETECT); Influenza A Not Detected (NOT DETECT); Influenza A H1 Not Detected (NOT DETECT); Influenza A H1-2009 Not Detected (NOT DETECT); Influenza A H3 Not Detected (NOT DETECT); Influenza B Not Detected (NOT DETECT); Mycoplasma Pneumoniae Not Detected (NOT DETECT); Parainfluenza Virus Type 1 Not Detected (NOT DETECT); Parainfluenza Virus Type 2 Not Detected (NOT DETECT); Parainfluenza Virus Type 3 Not Detected (NOT DETECT); Parainfluenza Virus Type 4 Not Detected (NOT DETECT); Respiratory Syncytial Virus A Not Detected (NOT DETECT); SARS-COV-2 Not Detected (NOT DETECT)
[2023-08-04 19:21] LABS: Respiratory Syncytial Virus B Detected (NOT DETECT)
--- NOTE | 2023-08-04 19:27 | PC.NURSE ---
[facility] called this nurse spoke with Martha and informed of the pts RSV + results.
== END 2023-08-04 16:23 | disposition home or self-care (01) ==
PROVIDERS: Emergency Provider Physician Assistant; PCP Family Medicine
DX: R53.1 Weakness (principal); R31.21 Asymptomatic microscopic hematuria; Z99.3 Dependence on wheelchair; I12.9 Hypertensive chronic kidney disease with stage 1 through stage 4 chronic kidney disease, or unspecified chronic kidney disease; N18.30 Chronic kidney disease, stage 3 unspecified
CPT/HCPCS: 71045; 80053; 81001; 82550; 85025; 87086; 87486; 87581; 87633; 93005; 99285

== ENCOUNTER 2023-08-19 08:22 | Emergency (ER) | payer MEDICARE, SELFPAY ==
[2023-08-19] VITALS (43 sets, daily range): BP systolic 124–148; BP diastolic 61–95; PULSE 72–94; RESP 14–29; TEMP 36.7; O2SAT 74–100
--- NOTE | 2023-08-19 08:27 | USCV_ITS ---
Britany Alvarenga Age: 78 Gender: F : 1945 Exam Date: 08/19/2023 08:38 Ordering Phys: Meño Bauman DO Technologist: [place] [facility] [place] Indication: lt leg pain and swelling PROCEDURES: Venous duplex imaging was performed in only the left lower extremity. The following venous structures were evaluated: common femoral vein, profunda vein, proximal portion of the greater saphenous vein, superficial femoral vein, and the popliteal vein. In addition, the posterior tibial and peroneal trunk were evaluated. FINDINGS: Lt leg occluding thrombus from lt cfv,fv, pop, and perineal trunk. CONCLUSIONS LEFT LE occlusive thrombus Left cfv, femoral, popliteal, and peroneal trunk Prelim to Dr Bauman by marine electronics repairer at time of study Perry Christian MD (Electronically Signed) Final Date: 19 Aug 2023 10:50 S
--- NOTE | 2023-08-19 09:01 | ED_ITS ---
HPI - Extremity Problem 2 General: Chief complaint: Extremity Injury, Lower Stated complaint: left leg pain, swollen Time Seen by Provider: 08/19/23 08:25 Source: patient Mode of arrival: ambulatory History of Present Illness: 78-year-old female intermediate resident presents emergency room via EMS. Her primary care had seen her this morning they had a venous duplex done yesterday and it showed a DVT which we confirmed today but she also has arterial occlusion according to her primary based on ultrasound evidence she has a cold painful left lower leg. The symptoms began 2 days ago. Patient had fallen out of her wheelchair several times at home had significant generalized weakness which was how she came to be in the intermediate. She states normally before that she had been ambulating and does hope to rehab enough to ambulate well enough to go home again. Patient is not on any anticoagulation at this time she denies any shortness of breath or chest discomfort MD Complaint: extremity pain, extremity swelling and cold extremity Onset (ago): day(s) (2) Pain Consistency: constant Location: left Relieving factors: immobilization Exacerbating factors: range of motion, weight bearing and palpation Associated symptoms: Deny chest pain, fever(s), rash or short of breath Review of Systems 2 Const: Denies: fever(s) Card: Denies: chest pain or edema Resp: Denies: dyspnea GI: Denies: abdominal pain : Denies: dysuria, urinary frequency or urinary urgency Musc: Reports: extremity pain; Denies: neck pain or back pain Skin/Breast: Denies: rash PFSH ED 2 PFSH: Medical History Kidney disease, chronic, stage III (GFR 30-59 ml/min) Benign essential HTN Surgical History No significant past surgical history Family History Other CAD (coronary artery disease) Dementia Hypertension Denies family history of Diabetes Clotting disorder Hyperlipidemia Psychiatric illness Chronic kidney disease (CKD) Suicide Anesthesia complication Bleeding disorder Family history of premature coronary artery disease Lung disease Cancer Stroke Social History Smoking and tobacco/nicotine status: never used tobacco/nicotine Alcohol intake: current Alcohol intake frequency: 0-2 Drinks per Day Substance/Drug Use: never Adopted: No Caregiver/support person: No Lives independently: No Housing: Assisted Living Facility Physical Exam 2 Const: GENERAL APPEARANCE: cooperative and comfortable O RIENTATION/CONSCIOUSNESS: Yes awake, Yes oriented to person, Yes oriented to place and Yes oriented to time HENMT: COMMON NORMALS: normocephalic, atraumatic and hearing grossly normal bilaterally HEAD & SCALP: normocephalic and atraumatic Resp: COMMON NORMALS: normal respiratory effort, No retractions, No use of accessory muscles and clear to auscultation bilaterally AUSCULTATION: clear to auscultation bilaterally Cardio: COMMON NORMALS: regular rate, regular rhythm and No murmurs present (Cardio) RATE: regular rate RHYTHM: regular rhythm GI: COMMON NORMALS: Soft to palpation and No hepatosplenomegaly present A USCULTATION: Yes normoactive bowel sounds PALPATION: Yes Soft to palpation, No Tenderness to palpation present (GI), No Guarding due to palpation present (GI) and Yes No hepatosplenomegaly present Extremity: OTHER: Left lower extremity cool to the touch extremely painful with palpation of the calf and the thigh for the distal half of the lower leg is cyanotic cool to the touch no palpable pulses Neuro: SENSORIUM/ORIENTATION: Yes oriented to person, Yes oriented to place and Yes oriented to time Skin: COMMON NORMALS: no rashes or lesions noted GENERAL SKIN EXAM: no rashes or lesions noted Course 2 Vital Signs: Vital signs: Vital Signs Temperature 98.0 F 08/19/23 13:53 Pulse Rate 83 08/19/23 16:30 Respiratory Rate 21 H 08/19/23 16:30 Blood Pressure 128/84 08/19/23 16:30 Pulse Oximetry 95 08/19/23 16:30 Oxygen Delivery Me thod Room Air 08/19/23 16:30 MDM - Extremity (Nontraumatic) Medical Decision Making Patient is DVT is low as well with arterial thrombosis with an ischemic limb. Heparin was initiated CTA confirmed discussed with transfer center at [facility] looks at the patient as a ED to ED transfer have discussed the findings with patient. She is agreeable to transfer. Medical Records I reviewed the patient's medical records. Lab Data I reviewed the patient's lab results. 08/19/23 09:27 08/19/23 09:27 Radiology Impressions Lower Extremity CTA 08/19/23 09:03 IMPRESSION: 1. 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 Diminutive one-vessel runoff distally. 2. Trifurcation disease right lower leg with diminished one-vessel runoff. 3. 1 cm pancreatic cyst. Consider follow-up study in 1-2 years for continued surveillance. 4. Enlarged fibroid uterus. 5. Markedly atrophic left kidney. Laboratory Results WBC 13.51 10^3/uL (3.29-11.43) H 08/19/23 09: RBC 3.62 10^6/uL (3.85-5.65) L 08/19/23 09: Hgb 10.40 g/dL (11.27-16.99) L 08/19/23 09: Hct 32.3 % (36-47) L 08/19/23 09: MCV 89.2 fl (85-98) 08/19/23 09: MCH 28.7 pg (27-33) 08/19/23 09: MCHC 32.2 g/dL (30-55) 08/19/23 09: RDW 13.2 % (12.1-15.1) 08/19/23 09: Plt Count 307 10^3/cmm (157-399) 08/19/23 09: Plt Count Cancelled 08/19/23 09: MPV 8.8 fL (7.4-10.4) 08/19/23 09: Neut % (Auto) 89.2 % 08/19/23 09: Lymph % (Auto) 4.9 % 08/19/23 09: [place] % (Auto) 4.1 % 08/19/23 09: Eos % (Auto) 0.3 % 08/19/23 09: Baso % (Auto) 0.2 % 08/19/23 09:27 Neut # (Auto) 12.06 10^3/uL (1.8-7.7) H 08/19/23 09:27 Lymph # (Auto) 0.7 10^3/uL (0.8-4.8) L 08/19/23 09:27 [place] # (Auto) 0.6 10^3/uL (0.2-0.9) 08/19/23 09: Eos # (Auto) 0.0 10^3/uL (0.0-0.8) 08/19/23 09: Baso # (Auto) 0.0 10^3/uL (0.0-0.1) 08/19/23 09: Nucleated RBC % (auto) 0 % 08/19/23 09: Nucleated RBCs # 0.0 /100WBC 08/19/23 09: PT 23.50 SECONDS (12.1-14.9) H 08/19/23 09: INR 2.02 (0.8-1.2) H 08/19/23 09: APTT > 250.0 SECONDS (23.9-36.7) H* 08/19/23 09: Sodium 137 mmol/L (136-145) 08/19/23 09: Potassium 4.2 mmol/L (3.5-5.1) 08/19/23 09: Chloride 103 mmol/L (98-107) 08/19/23 09: Carbon Dioxide 23 mmol/L (22-29) 08/19/23 09: Anion Gap 15.2 (5-19) 08/19/23 09: BUN 30 mg/dL (8-23) H 08/19/23 09: Creatinine 1.1 mg/dL (0.5-0.9) H 08/19/23 09: GFR Calculation Not Reportable 08/19/23 09: Glucose 211 mg/dL (65-115) H 08/19/23 09: Calculated Osmolality 296 mOsm/kg (285-295) H 08/19/23 09: Calcium 8.6 mg/dL (8.5-10.5) 08/19/23 09: Total Bilirubin 0.3 mg/dL (0.15-1.2) 08/19/23 09: AST 57 U/L (0-32) H 08/19/23: ALT 77 U/L (0-33) H 08/19/23 09: Alkaline Phosphatase 127 U/L (35-105) H 08/19/23 09: Total Protein 6.4 g/dL (6.6-8.7) L 08/19/23 09:27 Albumin 2.7 g/dL (3.5-5.2) L 08/19/23 09:27 Globulin 3.7 g/dL (1.3-4.6) 08/19/23 09:27 All radiology interpretation(s) finalized by discharge Discharge Plan Discharge Patient Disposition: Transfer to ED Clinical Impression: Ischemic leg, Benign essential HTN, Kidney disease, chronic, stage III (GFR 30- 59 ml/min), DVT (deep venous thrombosis) Condition: Stable Prescriptions: No Action [id number] 600 mg calcium- 800 unit-50 mg tablet 1 tab PO DAILY glucosamine-chondroitin 900 mg tablet 900 mg PO QAM multivitamin Tablet 1 tab PO DAILY cholecalciferol (vitamin D3) 25 mcg (1,000 unit) capsule 25 mcg PO DAILY carvedilol 6.25 mg tablet 6.25 mg PO BID Qty: 180 1RF Rx Instructions: must administer with a meal/food amlodipine 2.5 mg tablet 2.5 mg PO DAILY Qty: 90 1RF Rx Instructions: ALONG WITH 5 MG TABLET TO=7.5MG amlodipine 5 mg tablet 5 mg PO DAILY Qty: 90 1RF Rx Instructions: ALONG WITH 2.5MG TO=7.5MG DAILY enalapril maleate 10 mg tablet 10 mg PO BID Qty: 180 1RF acetaminophen 325 mg Tablet 650 mg PO Q4H PRN (Reason: Pain) Milk of Magnesia 400 mg/5 mL Suspension 30 ml PO DAILY PRN (Reason: Constipation) Dulcolax (bisacodyl) 10 mg Suppository 10 mg MT DAILY PRN (Reason: Constipation) Fleet Enema 19-7 gram/118 mL Enema 118 ml MT DAILY PRN (Reason: Constipation) Culturelle 10 billion cell Capsule 1 cap PO DAILY Eliquis 5 mg Tablet 10 mg PO .[id number] Eliquis 5 mg Tablet 5 mg PO BID Referrals: Anabelle Hernandes DO [Primary Care Provider] - Coding Level of Care Code ED Director Of Securities And Real Estate for Bianca Ashley
--- NOTE | 2023-08-19 09:03 | CTR_ITS ---
PROCEDURE INFORMATION: Exam: CTA Left Lower Extremity With Contrast Exam date and time: 08/19/2023 11:25 AM Age: 78 years old Clinical indication: Abnormal findings; Abnormal imaging study; US of lle; Additional info: Arterial occlusion - lle. PT was unable to extend legs for exam TECHNIQUE: Imaging protocol: Computed tomographic angiography of the left lower extremity with contrast. 3D rendering (Not supervised by radiologist): MIP and/or 3D reconstructed images were created by the technologist. Radiation optimization: All CT scans at this facility use at least one of these dose optimization techniques: automated exposure control; mA and/or kV adjustment per patient size (includes targeted exams where dose is matched to clinical indication); or iterative reconstruction. Contrast material: OMNI 350; Contrast volume: 120 ml; Contrast route: INTRAVENOUS (IV); COMPARISON: No relevant prior studies available. RADIATION DOSE METRICS: Total DLP (mGy-cm): 788.23 FINDINGS: Limitations: Study is technically limited due to difficulty in adequately position the patient. Aorta: Visualized portion of the abdominal aorta is unremarkable. Iliac vessels are unremarkable. Left femoral/popliteal arteries: There is occlusion at the junction of the left SFA and popliteal artery. Left popliteal artery is not opacified. Left infrapopliteal arteries: Left tibial-peroneal trunk is occluded. There is collateral filling of the posterior tibial artery at the level of the proximal calf. Plantar arch is diminutive and poorly visualized. Remainder of the trifurcation vessels are occluded. Right femoral/popliteal arteries: Right SFA and popliteal artery are patent. Right infrapopliteal arteries: Right tibial-peroneal trunk is occluded. There is one-vessel runoff consisting of anterior tibial artery which terminates prematurely above the ankle. Pancreas: 1 cm cyst within the body of the pancreas that appears to be communicating with the main pancreatic duct. Remainder the pancreas is unremarkable. Kidneys and ureters: Left kidney is markedly atrophic. Nonobstructing stones right kidney which is otherwise unremarkable. Reproductive: Uterus is enlarged, lobulated and heterogeneous secondary to multiple uterine fibroids. Bones/joints: Mild scoliosis with multilevel degenerative changes throughout the lumbar spine. Advanced degenerative changes both hip joints. Soft tissues: Unremarkable. Other findings: Liver is partially visualized with heterogeneous attenuation that may be secondary to focal fatty infiltration. Gallbladder is contracted limiting assessment. CT/[place] [address] IMPRESSION: 1. 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 Diminutive one-vessel runoff distally. 2. Trifurcation disease right lower leg with diminished one-vessel runoff. 3. 1 cm pancreatic cyst. Consider follow-up study in 1-2 years for continued surveillance. 4. Enlarged fibroid uterus. 5. Markedly atrophic left kidney.
[2023-08-19] MEDS: heparin 5,000 unit/mL INJ 1 mL IV (09:19)
[2023-08-19] MEDS: heparin drip 25,000 UNIT/500 ML PREMIX 20 UNIT IV (09:26)
[2023-08-19 09:33] LABS: Basophils % 0.2 %; Eosinophils % 0.3 %; Hematocrit 32.3 % (36-47); Lymphocytes # 0.7 10^3/uL (0.8-4.8); Lymphocytes % 4.9 %; Mean Corpuscular HGB Conc 32.2 g/dL (30-55); Mean Corpuscular Hemoglobin 28.7 pg (27-33); Mean Corpuscular Volume 89.2 fl (85-98); Mean Platelet Volume 8.8 fL (7.4-10.4); Monocytes # 0.6 10^3/uL (0.2-0.9); Monocytes % 4.1 %; Neutrophils # 12.06 10^3/uL (1.8-7.7); Neutrophils % 89.2 %; Nucleated Red Blood Cells % 0 %; Platelet Count 307 10^3/cmm (157-399); Red Blood Count 3.62 10^6/uL (3.85-5.65); Red Cell Distribution Width 13.2 % (12.1-15.1); White Blood Count 13.51 10^3/uL (3.29-11.43)
[2023-08-19 09:55] LABS: INR 2.02 (0.8-1.2)
[2023-08-19 09:59] LABS: Alanine Aminotransferase 77 U/L (0-33); Albumin Level 2.7 g/dL (3.5-5.2); Alkaline Phosphatase 127 U/L (35-105); Anion Gap 15.2 (5-19); Aspartate Amino Transferase 57 U/L (0-32); Blood Urea Nitrogen 30 mg/dL (8-23); Calcium 8.6 mg/dL (8.5-10.5); Carbon Dioxide 23 mmol/L (22-29); Chloride 103 mmol/L (98-107); Creatinine Clr Calc Pharmacy 39.6333; Globulin 3.7 g/dL (1.3-4.6); Glucose 211 mg/dL (65-115); Osmolality Calculated 296 mOsm/kg (285-295); Potassium 4.2 mmol/L (3.5-5.1); Sodium 137 mmol/L (136-145); Total Bilirubin 0.3 mg/dL (0.15-1.2); Total Protein 6.4 g/dL (6.6-8.7)
--- NOTE | 2023-08-19 10:14 | PC.PHAR ---
Addendum entered by Mounika Zamora 08/19/23 10:18: PT IS FROM [facility] Original Note: NEW ORDER 08/18/23 FOR ELIQUIS 5 MG TAKE 2 TABLETS TWICE DAILY FOR 7 DAYS. SECOND ORDER FOR 5MG 1 TABLET TWICE DAILY FOR 6 MONTHS ON HOLD UNTIL INITIAL ORDER IS FINISHED.
[2023-08-19 10:21] LABS: Partial Thromboplastin Time > 250.0 SECONDS (23.9-36.7)
--- NOTE | 2023-08-19 10:32 | PC.NURSE ---
HEPARIN BOLUS GIVEN BEFORE PTT DRAWN. PROVIDER NOTIFIED OF CRITICAL LAB FINDING.
[2023-08-19] MEDS: iohexol 350 mg/mL 500 mL Btl (per mL) IV (11:38)
--- NOTE | 2023-08-19 13:45 | PC.NURSE ---
PT IS A/O X2 TO SELF AND PLACE.
[2023-08-19] MEDS: D5-NS 0.45% + KCL 20 mEq 20 MEQ/1,000 ML BAG 100 MEQ IV (14:08)
--- NOTE | 2023-08-19 14:33 | PC.NURSE ---
REPORT CALLED TO DIPTI SEVERINO AT [facility].
[2023-08-19] MEDS: morphine 4 mg/mL SDV 1 mL IVP ×2 (16:28→19:27)
--- NOTE | 2023-08-19 16:41 | PC.NURSE ---
IV push medication given by this nurse. Patient educated on medication and potential side effects. No questions voiced by patient or family member that was at bedside.
--- NOTE | 2023-08-19 16:52 | PC.NURSE ---
Pain Reassessment Nurse in room at this time to assess pain level. Patient resting in bed with eyes closed. Respirations unlabor.
== END 2023-08-19 20:01 ==
PROVIDERS: Emergency Provider Family Medicine; PCP Family Medicine
DX: I82.412 Acute embolism and thrombosis of left femoral vein (principal); I82.432 Acute embolism and thrombosis of left popliteal vein; I82.452 Acute embolism and thrombosis of left peroneal vein; I70.222 Atherosclerosis of native arteries of extremities with rest pain, left leg; I12.9 Hypertensive chronic kidney disease with stage 1 through stage 4 chronic kidney disease, or unspecified chronic kidney disease; N18.30 Chronic kidney disease, stage 3 unspecified; Z79.01 Long term (current) use of anticoagulants
CPT/HCPCS: 36415; 73706; 80053; 85025; 85610; 85730; 93971; 96365; 96366; 96375; 96376; 99285; J1644; J2270; Q9967

== ENCOUNTER 2023-09-27 09:24 | Observation (INO) | payer MEDICARE, SELFPAY ==
[2023-09-27] VITALS (8 sets, daily range): BP systolic 108–124; BP diastolic 60–73; PULSE 62–76; RESP 16–18; TEMP 36.6–37.1; O2SAT 94–100
--- NOTE | 2023-09-27 09:30 | CT_ITS ---
WS: [id number] CT HEAD TECHNIQUE: Noncontrast CT of the head obtained from the skullbase to the vertex. CLINICAL INFORMATION: ACUTE SYMPTOMS OF STROKE COMPARISON: None. DLP: [address] scans at [facility] use at least one of these dose optimization techniques: automated e xposure control; mA and/or kV adjustment per patient size (includes targeted exams where dose is matc hed to clinical indication); or iterative reconstruction. FINDINGS: No evidence of intracranial hemorrhage or mass effect. Ventricular system and basal cisterns are jacinto nt. Moderate small vessel changes. Moderate parenchymal volume loss. Intracranial vascular calcificat ion. Chronic lacunar infarcts in the RIGHT cerebellum. Chronic appearing infarcts RIGHT frontoparieta l junction and RIGHT parietal occipital junction extending into the RIGHT posterior temporal lobe wit h encephalomalacia. Mild mucosal thickening in the LEFT maxillary sinus. Small retention cyst RIGHT maxillary sinus. Flui d in the RIGHT mastoid air cells. CT/CT head thrombolytic 74130 IMPRESSION: 1. No evidence of intracranial hemorrhage or mass effect. 2. Moderate small vessel changes with moderate parenchymal volume loss. 3. Chronic cortical infarcts involving the RIGHT frontoparietal junction and R IGHT parietal occipital junction extending into the posterior temporal lobe wit h encephalomalacia. 4. Chronic lacunar infarcts in the RIGHT caudate and RIGHT cerebellum. 5. No acute intracranial findings. Notified Meño Bauman DO at 09/27/2023 9:39 AM.
--- NOTE | 2023-09-27 09:38 | XRR_ITS ---
PROCEDURE INFORMATION: Exam: XR Chest Exam date and time: 09/27/2023 9:46 AM Age: 78 years old Clinical indication: Shortness of breath; Additional info: CVA TECHNIQUE: Imaging protocol: Radiologic exam of the chest. Views: 1 view. COMPARISON: CR XR chest 1V portable [id number] 08/04/2023 1:55 PM FINDINGS: Lungs: Shallow lung volumes. Bibasilar densities suggesting atelectasis and/or scarring. Pleural spaces: No pleural effusion identified. Heart/Mediastinum: Large hiatal hernia. Bones/joints: Degenerative findings are present in the right shoulder. Thoracolumbar spinal curvature incompletely delineated. XR/XR chest 1V portable [id number] IMPRESSION: Minimal bibasilar densities suggesting atelectasis and/or scarring. Findings compatible with large hiatal hernia.
--- NOTE | 2023-09-27 09:38 | CT_ITS ---
WS: [id number] CTA HEAD AND NECK TECHNIQUE: Contrast enhanced CTA of the head and neck with coronal and sagittal reformatted images an d maximum intensity projection (MIP) images. NASCET criteria utilized. CLINICAL INFORMATION: acute CVA COMPARISON: None. DLP: 371.[address] scans at [facility] use at least one of these dose optimization techniques: automated e xposure control; mA and/or kV adjustment per patient size (includes targeted exams where dose is matc hed to clinical indication); or iterative reconstruction. FINDINGS: RIGHT: RIGHT common carotid artery is patent. No significant RIGHT ICA stenosis. RIGHT ICA is patent to the skull base. LEFT: LEFT common carotid artery is patent. No significant LEFT ICA stenosis. LEFT ICA is patent to t he skull base. LEFT dominant vertebral artery. Smaller but patent RIGHT vertebral artery. Proximal basilar artery is patent. Slightly ectatic basilar artery measuring 5 mm. Persistent RIGHT SCHEDULE CLERK. Normal vasculari ty to the SCHEDULE CLERK territory bilaterally. Both ICAs are patent at the skull base. Mild narrowing of the supraclinoid ICAs bilaterally which rem ain patent. Normal vascularity to the ALDO and MCA territories bilaterally. No evidence of proximal fl ow-limiting stenosis. Lung apices are well aerated. Mastoid air cells are well aerated. Paranasal sinuses are well aerated. Mild spondylitic changes cervical spine. A few small LEFT thyroid nodules. CT/CT angio headneck* [id number] IMPRESSION: 1. No significant ICA stenosis bilaterally. 2. No evidence of proximal flow-limiting intracranial stenosis. 3. Slightly ectatic basilar artery measuring 5 mm. 4. Chronic infarcts described on the head CT from earlier today.
[2023-09-27 09:40] LABS: Glucose Point of Care 184 mg/dL (70-110)
--- NOTE | 2023-09-27 09:45 | ECG_ITS ---
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 Measurements Intervals Sylvester Rate: 68 P: 74 MN: 146 QRS: 67 QRSD: 80 T: 57 QT: 366 QTc: 392 Interpretive Statements SINUS RHYTHM Compared to ECG 08/04/2023 14:42:14 No significant changes Electronically Signed On 09-27-2023 19:00:53 CDT by Keny Elizabeth M.D. [id number]
[2023-09-27 09:47] LABS: Basophils % 0.6 %; Eosinophils % 0.4 %; Hematocrit 37.7 % (36-47); Lymphocytes # 0.7 10^3/uL (0.8-4.8); Lymphocytes % 9.5 %; Mean Corpuscular HGB Conc 31.6 g/dL (30-55); Mean Corpuscular Hemoglobin 29.1 pg (27-33); Mean Corpuscular Volume 92.2 fl (85-98); Mean Platelet Volume 9.2 fL (7.4-10.4); Monocytes # 0.4 10^3/uL (0.2-0.9); Monocytes % 5.8 %; Neutrophils # 5.89 10^3/uL (1.8-7.7); Neutrophils % 83.3 %; Nucleated Red Blood Cells % 0 %; Platelet Count 268 10^3/cmm (157-399); Red Blood Count 4.09 10^6/uL (3.85-5.65); Red Cell Distribution Width 16.1 % (12.1-15.1); White Blood Count 7.07 10^3/uL (3.29-11.43)
--- NOTE | 2023-09-27 09:48 | ED_ITS ---
HPI - Neuro Symptoms/Deficit 2 General: Chief Complaint: Neuro Symptoms/Deficit Stated Complaint: stroke alert Time Seen by Provider: 09/27/23 09:29 Source: patient Mode of arrival: EMS History of Present Illness: 78-year-old female presents to the emerg ency room with report of left-sided facial weakness and hand weakness she has a history of previous stroke. 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 Around 830 in the intermediate staff reports that she had increasing left-sided weakness. Stroke alert was called CT of the head was done upon arrival which is negative. On exam her NIH is 7. She does follow commands that she is awake and responsive. Difficult to assess her vision she has difficult time counting fingers either right or left eye. She denies chest pain she does have some pain in her right lower extremity. Onset (ago): minute(s) Last Observed Normal: 08:30 Timing confirmed by: caregiver Location: speech, left face and left arm Severity: mild Quality: weak Relieving factors: none Exacerbating factors: none Context: sudden onset On Anticoagulants: Yes Associated symptoms: Deny chest pain, cough, diaphoresis, fevers/chills, headache(s), anorexia, malaise, nausea, seizures, short of breath, syncope, tingling, vertigo, vomiting or weakness Review of Systems 2 Const: Denies: fever(s), chills, malaise or diaphoresis Card: Denies: chest pain or syncope Resp: Denies: dyspnea GI: Denies: abdominal pain, nausea or vomiting : Denies: dysuria, urinary frequency or urinary urgency Musc: Denies: neck pain or back pain Skin/Breast: Denies: rash Neuro: Denies: headache(s) or vertigo PFS ED 2 PFSH: Medical History (Updated 09/27/23 @ 13:37 by Vangie Hou MD) Seasonal allergies Kidney disease, chronic, stage III (GFR 30-59 ml/min) Benign essential HTN Surgical History No significant past surgical history Family History Other CAD (coronary artery disease) Dementia Hypertension Denies family history of Diabetes Clotting disorder Hyperlipidemia Psychiatric illness Chronic kidney disease (CKD) Suicide Anesthesia complication Bleeding disorder Family history of premature coronary artery disease Lung disease Cancer Stroke Social History Smoking and tobacco/nicotine status: never used tobacco/nicotine Alcohol intake: current Alcohol intake frequency: 0-2 Drinks per Day Substance/Drug Use: never Adopted: No Caregiver/support person: No Lives independently: No Housing: Assisted Living Facility Physical Exam 2 Const: GENERAL APPEARANCE: cooperative and comfortable O RIENTATION/CONSCIOUSNESS: Yes awake HENMT: COMMON NORMALS: normocephalic, atraumatic and hearing grossly normal bilaterally HEAD & SCALP: normocephalic and atraumatic Resp: COMMON NORMALS: normal respiratory effort, No retractions, No use of accessory muscles and clear to auscultation bilaterally AUSCULTATION: clear to auscultation bilaterally Cardio: COMMON NORMALS: regular rate, regular rhythm and No murmurs present (Cardio) RATE: regular rate RHYTHM: regular rhythm GI: COMMON NORMALS: Soft to palpation and No hepatosplenomegaly present A USCULTATION: Yes normoactive bowel sounds PALPATION: Yes Soft to palpation, No Tenderness to palpation present (GI), No Guarding due to palpation present (GI) and Yes No hepatosplenomegaly present Extremity: COMMON NORMALS: normal to inspection, capillary refill normal, no clubbing, cyanosis or edema, no calf tenderness and no pedal edema Skin: COMMON NORMALS: no rashes or lesions noted GENERAL SKIN EXAM: no rashes or lesions noted Course 2 Vital Signs: Vital signs: Vital Signs Pulse Rate 76 09/27/23 11:40 Respiratory Rate 18 09/27/23 12:45 Blood Pressure 115/73 09/27/23 13:34 Pulse Oximetry 100 09/27/23 12:45 Oxygen Delivery Me thod Room Air 09/27/23 12:45 MDM - Neuro Symptoms/Deficit Medical Decision Making Acute CVA likely an extension of her previous. Dementia plays a role in her as well she is improved some. She is still very confused her initial NIH score was 7 CTA head and neck was negative. Not a candidate for tPA because she is on anticoagulants. Dr. Bowman and seen her initially. He recommends observation she is currently on apixaban but is not on any antiplatelet therapy or statin therapy. Medical Records I reviewed the patient's medical records. Lab Data I reviewed the patient's lab results. 09/27/23 09:27 09/27/23 09:[address] 09/27/23 09:30 IMPRESSION: 1. No evidence of intracranial hemorrhage or mass effect. 2. Moderate small vessel changes with moderate parenchymal volume loss. 3. Chronic cortical infarcts involving the RIGHT frontoparietal junction and RIGHT parietal occipital junction extending into the posterior temporal lobe with encephalomalacia. 4. Chronic lacunar infarcts in the RIGHT caudate and RIGHT cerebellum. 5. No acute intracranial findings. Notified Meño Bauman DO at 09/27/2023 9:39 AM. Chest X-Ray 09/27/23 09:38 IMPRESSION: Minimal bibasilar densities suggesting atelectasis and/or scarring. Findings compatible with large hiatal hernia. Head/Neck CTA 09/27/23 09:38 IMPRESSION: 1. No significant ICA stenosis bilaterally. 2. No evidence of proximal flow-limiting intracranial stenosis. 3. Slightly ectatic basilar artery measuring 5 mm. 4. Chronic infarcts described on the head CT from earlier today. Abdomen/Pelvis CT 09/27/23 12:54 IMPRESSION: 1. Atrophic LEFT kidney is new from previous. No hydronephrosis in the RIGHT kidney. 2. Bulky fibroid uterus progressed compared to previous 3. Large esophageal hernia with partial intrathoracic stomach. 4. Small bilateral pleural effusions. Laboratory Results WBC 7.07 10^3/uL (3.29-11.43) 09/27/23 09:27 RBC 4.09 10^6/uL (3.85-5.65) 09/27/23 09:27 Hgb 11.90 g/dL (11.27-16.99) 09/27/23 09:27 Hct 37.7 % (36-47) 09/27/23 09: MCV 92.2 fl (85-98) 09/27/23 09: MCH 29.1 pg (27-33) 09/27/23 09: MCHC 31.6 g/dL (30-55) 09/27/23 09: RDW 16.1 % (12.1-15.1) H 09/27/23 09: Plt Count 268 10^3/cmm (157-399) 09/27/23 09: MPV 9.2 fL (7.4-10.4) 09/27/23 09: Neut % (Auto) 83.3 % 09/27/23 09: Lymph % (Auto) 9.5 % 09/27/23 09: [place] % (Auto) 5.8 % 09/27/23 09: Eos % (Auto) 0.4 % 09/27/23 09: Baso % (Auto) 0.6 % 09/27/23: Neut # (Auto) 5.89 10^3/uL (1.8-7.7) 09/27/23 09: Lymph # (Auto) 0.7 10^3/uL (0.8-4.8) L 09/27/23 09: [place] # (Auto) 0.4 10^3/uL (0.2-0.9) 09/27/23 09: Eos # (Auto) 0.0 10^3/uL (0.0-0.8) 09/27/23 09: Baso # (Auto) 0.0 10^3/uL (0.0-0.1) 09/27/23 09: Nucleated RBC % (auto) 0 % 09/27/23: Nucleated RBCs # 0.0 /100WBC 09/27/23: PT 16.00 SECONDS (12.1-14.9) H 09/27/23 09: INR 1.24 (0.8-1.2) H 09/27/23 09: APTT 27.1 SECONDS (23.9-36.7) 09/27/23 09: Sodium 142 mmol/L (136-145) 09/27/23 09: Potassium 4.3 mmol/L (3.5-5.1) 09/27/23 09: Chloride 103 mmol/L (98-107) 09/27/23 09: Carbon Dioxide 26 mmol/L (22-29) 09/27/23 09: Anion Gap 17.3 (5-19) 09/27/23 09:27 BUN 27 mg/dL (8-23) H 09/27/23 09:27 Creatinine 0.8 mg/dL (0.5-0.9) 09/27/23 09:27 GFR Calculation Not Reportable 09/27/23 09:27 Glucose 166 mg/dL (65-115) H 09/27/23 09:27 POC Glucose 184 mg/dL (70-110) H 09/27/23 09:37 Calculated Osmolality 303 mOsm/kg (285-295) H 09/27/23 09:27 Calcium 8.8 mg/dL (8.5-10.5) 09/27/23 09:27 Total Bilirubin 0.3 mg/dL (0.15-1.2) 09/27/23 09:27 AST 16 U/L (0-32) 09/27/23 09: ALT 14 U/L (0-33) 09/27/23 09: Alkaline Phosphatase 106 U/L (35-105) H 09/27/23 09:27 Total Protein 6.1 g/dL (6.6-8.7) L 09/27/23 09: Albumin 3.4 g/dL (3.5-5.2) L 09/27/23 09: Globulin 2.7 g/dL (1.3-4.6) 09/27/23 09:27 Urine Color Yellow (Yellow) 09/27/23 11:50 Urine Appearance Clear (CLEAR) 09/27/23 11:50 Urine pH 8 (5-7) H 09/27/23 11:50 Ur Specific [place] 1.010 (1.005-1.030) 09/27/23 11:50 Urine Protein Trace (Negative) 09/27/23 11:50 Urine Glucose (UA) Norm (Normal) 09/27/23 11:50 Urine Ketones Negative (Negative) 09/27/23 11:50 Urine Blood 3+ (Negative) H 09/27/23 11:50 Urine Nitrate Negative (Negative) 09/27/23 11:50 Urine Bilirubin Neg (Negative) 09/27/23 11:50 Prot Sulfosalicylic Acd Negative (Negative) 09/27/23 11:50 Urine Urobilinogen Norm mg/dL (Negative) 09/27/23 11:50 Ur Leukocyte Esterase Negative (Negative) 09/27/23 11:50 Urine RBC 15-25 /hpf (0-2) H 09/27/23 11:50 Urine WBC 0-4 /hpf (0-5) H 09/27/23 11:50 Ur Squamous Epith Cells Rare /hpf (0-5) 09/27/23 11:50 Amorphous Sediment Not Reportable 09/27/23 11:50 Urine Bacteria 1+ /hpf (NONE) H 09/27/23 11:50 Urine Opiates Screen Positive ng/mL (Negative) H 09/27/23 11:50 Ur Barbiturates Screen Negative ng/mL (Negative) 09/27/23 11:50 Ur Phencyclidine Scrn Negative ng/mL (Negative) 09/27/23 11:50 Ur Amphetamines Screen Negative ng/mL (Negative) 09/27/23 11:50 U Benzodiazepines Scrn Negative ng/mL (Negative) 09/27/23 11:50 Urine Cocaine Screen Negative ng/mL (Negative) 09/27/23 11:50 U Marijuana (THC) Screen Negative ng/mL (Negative) 09/27/23 11:50 All radiology interpretation(s) finalized by discharge Discharge Plan Discharge Patient Disposition: Placed in Observation Clinical Impression: Cerebrovascular accident, Benign essential HTN, Kidney disease, chronic, stage III (GFR 30-59 ml/min) Condition: Stable Prescriptions: No Action [id number] 600 mg calcium- 800 unit-50 mg tablet 1 tab PO DAILY glucosamine-chondroitin 900 mg tablet 900 mg PO QAM multivitamin Tablet 1 tab PO DAILY cholecalciferol (vitamin D3) 25 mcg (1,000 unit) capsule 25 mcg PO DAILY carvedilol 6.25 mg tablet 6.25 mg PO BID Qty: 180 1RF Rx Instructions: must administer with a meal/food amlodipine 2.5 mg tablet 2.5 mg PO DAILY Qty: 90 1RF Rx Instructions: ALONG WITH 5 MG TABLET TO=7.5MG amlodipine 5 mg tablet 5 mg PO DAILY Qty: 90 1RF Rx Instructions: ALONG WITH 2.5MG TO=7.5MG DAILY enalapril maleate 10 mg tablet 10 mg PO BID Qty: 180 1RF acetaminophen 325 mg Tablet 650 mg PO Q4H PRN (Reason: Pain) magnesium hydroxide [Milk of Magnesia] 400 mg/5 mL Suspension 30 ml PO DAILY PRN (Reason: Constipation) bisacodyl [Dulcolax (bisacodyl)] 10 mg Suppository 10 mg AR DAILY PRN (Reason: Constipation) Fleet Enema 19-7 gram/118 mL Enema 118 ml AR DAILY PRN (Reason: Constipation) Eliquis 5 mg Tablet 5 mg PO BID [place] 5-325 mg Tablet 1 tab PO Q4H PRN (Reason: Pain) Vitamin B-1 100 mg Tablet 100 mg PO DAILY tramadol 50 mg tablet 50 mg PO Q4H PRN (Reason: Pain) sertraline 25 mg Tablet 25 mg PO BEDTIME Miralax 17 gram/dose Powder See Rx Instructions .ROUTE .COMPLEX Rx Instructions: MIX 1 CAPFUL (17 g) IN 8 OUNCES LIQUID AND DRINK ENTIRE LIQUID DAILY NEEDED FOR CONSTIPATION. Pro-Stat 101 15-101 gram-kcal/30 mL Liquid 1 ea PO DAILY Biofreeze 0.2-3.5 % Gel 1 applic TOPICAL DAILY PRN (Reason: Pain) Rx Instructions: rub in gently and completely Referrals: Anabelle Hernandes DO [Primary Care Provider] - Coding Level of Care Code ED Production Assembler for Bianca Ashley
[2023-09-27 10:01] LABS: Alanine Aminotransferase 14 U/L (0-33); Albumin Level 3.4 g/dL (3.5-5.2); Alkaline Phosphatase 106 U/L (35-105); Blood Urea Nitrogen 27 mg/dL (8-23); Calcium 8.8 mg/dL (8.5-10.5); Carbon Dioxide 26 mmol/L (22-29); Chloride 103 mmol/L (98-107); Globulin 2.7 g/dL (1.3-4.6); Glucose 166 mg/dL (65-115); Osmolality Calculated 303 mOsm/kg (285-295); Sodium 142 mmol/L (136-145); Total Bilirubin 0.3 mg/dL (0.15-1.2); Total Protein 6.1 g/dL (6.6-8.7)
[2023-09-27 10:06] LABS: Anion Gap 17.3 (5-19); Aspartate Amino Transferase 16 U/L (0-32); Potassium 4.3 mmol/L (3.5-5.1)
--- NOTE | 2023-09-27 10:08 | P.CONIM_ITS ---
Providers/Reason For Consult 2 Consulting Physician/Specialty*: Daquan Bowman MD neurology and epilepsy Reason for Consult*: Code stroke emergency department room #16/acute care Primary Care Provider: Anabelle Hernandes DO History of Present Illness History of Present Illness Britany Alvarenga is a 78 year old female with a history of remote stroke, chronic kidney disease stage III, and left below the knee amputation. The patient is on Eliquis. The patient resides in a correction. The patient's last known well was reported to be 8:30 AM on 2023 when the patient was being assisted with showering. The patient was observed to have left upper extremity paralysis and slurred speech. Code stroke was initiated at 9:13 AM reporting estimated time of arrival 10 minutes out. NIH score = 7 (secondary to inability to look past the midline to the left, questionable visual deficit in the left eye, inability to move the left arm, dysarthria, and left-sided neglect). Accu- Chek glucose 184. Stat noncontrast head CT 09/27/2023: IMPRESSION: 1. No evidence of intracranial hemorrhage or mass effect. 2. Moderate small vessel changes with moderate parenchymal volume loss. 3. Chronic cortical infarcts involving the RIGHT frontoparietal junction and RIGHT parietal occipital junction extending into the posterior temporal lobe with encephalomalacia. 4. Chronic lacunar infarcts in the RIGHT caudate and RIGHT cerebellum. 5. No acute intracranial findings. Since the patient is currently on Eliquis she was not a candidate for intravenous thrombolytics and no intravenous thrombolytics were administered. Patient was scheduled for CT angiogram of the head and neck to assess for large vessel occlusion to determine if patient is a candidate for thrombectomy. Past medical history: Anticoagulation treatment with Eliquis Remote stroke Chronic kidney disease stage III Left below the knee amputation. Drug allergies: None Current medications: Eliquis 5 mg p.o. twice daily Norvasc 2.5 mg p.o. daily Norvasc 5 mg p.o. daily Carvedilol 6.25 mg p.o. twice daily Vitamin D3 25 mcg p.o. daily Enalapril 10 mg p.o. twice daily Habits: Unknown Family history: Unknown Review of Systems 2 General: Reports: 10 or more systems reviewed and unremarkable except in HPI and below Medications/Allergies Home Medications Medication Instructions Recorded Confirmed Last Taken Type antiarthritic combination no.2 900 900 mg PO QAM 11/11/21 08/19/23 08/03/23 History mg tablet (glucosamine-chondroitin) calcium 600 mg-D3 800 unit-mag11 1 tab PO DAILY 11/11/21 08/19/23 08/03/23 History 50 zl-pazb-lzcwza-edyta-s.borat tablet cholecalciferol (vitamin D3) 25 25 mcg PO DAILY 11/11/21 08/19/23 08/03/23 History mcg (1,000 unit) capsule multivitamin 1 tab PO DAILY 11/11/21 08/19/23 08/03/23 History amlodipine 2.5 mg tablet 2.5 mg PO DAILY #90 tabs 05/11/23 08/19/23 08/04/23 Rx amlodipine 5 mg tablet 5 mg PO DAILY #90 tabs 05/11/23 08/19/23 08/04/23 Rx carvedilol 6.25 mg tablet 6.25 mg PO BID #180 tabs 05/11/23 08/19/23 08/03/23 Rx enalapril maleate 10 mg tablet 10 mg PO BID #180 tabs 05/11/23 08/19/23 08/03/23 Rx Lactobacillus rhamnosus GG 10 1 cap PO DAILY 08/19/23 08/19/23 Unknown History billion cell capsule (Culturelle) acetaminophen 325 mg tablet 650 mg PO Q4H PRN Pain 08/19/23 08/19/23 Unknown History apixaban 5 mg tablet (Eliquis) 5 mg PO BID 08/19/23 08/19/23 Unknown History apixaban 5 mg tablet (Eliquis) 10 mg PO .[id number] 08/19/23 08/19/23 Unknown History bisacodyl 10 mg rectal suppository 10 mg SC DAILY PRN Constipation 08/19/23 08/19/23 Unknown History (Dulcolax (bisacodyl)) magnesium hydroxide 400 mg/5 mL 30 ml PO DAILY PRN Constipation 08/19/23 08/19/23 Unknown History oral suspension (Milk of Magnesia) sodium phosphates 19 gram-7 118 ml SC DAILY PRN Constipation 08/19/23 08/19/23 Unknown History gram/118 mL enema (Fleet Enema) Allergies Allergy/AdvReac Type Severity Reaction Status Date / Time No Known Allergies Allergy Verified 08/02/23 18:55 PFSH Acute 2 PFSH: Medical History Kidney disease, chronic, stage III (GFR 30-59 ml/min) Benign essential HTN Surgical History No significant past surgical history Family History Other CAD (coronary artery disease) Dementia Hypertension Denies family history of Diabetes Clotting disorder Hyperlipidemia Psychiatric illness Chronic kidney disease (CKD) Suicide Anesthesia complication Bleeding disorder Family history of premature coronary artery disease Lung disease Cancer Stroke Social History Smoking and tobacco/nicotine status: never used tobacco/nicotine Alcohol intake: current Alcohol intake frequency: 0-2 Drinks per Day Substance/Drug Use: never Adopted: No Caregiver/support person: No Lives independently: No Housing: Assisted Living Facility Vitals/I&O/Wt Last Vital Signs Pulse 69 09/27/23 10:04 Resp 18 09/27/23 10:04 BP 108/60 09/27/23 10:04 Pulse Ox 98 09/27/23 10:04 O2 Del Method Room Air 09/27/23 10:04 Physical Exam 2 Narrative: NIH score = 7 (secondary to inability to look past the midline to the left, questionable visual deficit in the left eye, inability to move the left arm, dysarthria, and left-sided neglect). Accu-Chek glucose 184. The patient is alert. Speech is dysarthric. Head atraumatic. Neck supple. Cranial nerves II through XII revealed no obvious facial weakness. Visual casas revealed questionable decreased vision in the left eye. Patient did have left-sided neglect. Motor testing revealed left upper extremity paralysis. Patient was able to move the left below the knee amputated extremity. Motor testing in the right arm and right leg appear to be 5/5. Sensory examination was intact to touch although there was some questionable neglect on the left side of the patient's body. Plantar response on the right. Patient has left below the knee amputation. Throat clear. Lungs clear. Heart regular rhythm and rate. Extremities revealed below the knee amputation on the left, chronic. Data 09/27/23 09:27 09/27/23 09:27 A&P Assessment and plan (1) Acute right MCA stroke: Impression: 1. Acute right MCA distribution stroke. Note: Since the patient is on Eliquis for anticoagulation, the patient was not a candidate for intravenous thrombolytics and therefore intravenous thrombolytics were not administered. The patient will be scheduled for CT angiogram of the head and neck to assess for large vessel occlusion to determine if the patient is a candidate for transfer for thrombectomy 2. Anticoagulation with Eliquis 3. Left below the knee amputation 4. Chronic kidney disease stage III Plan: 1. Agree with obtaining CT angiogram of the head and neck to evaluate for right MCA large vessel occlusion and to determine the patient is a candidate for transfer for thrombectomy 2. If the CT angiogram of the head and neck are negative for large vessel occlusion recommended treating patient's stroke conservatively and follow NIH stroke protocol regarding starting a lipid-lowering agent 3. Neurochecks per NIH stroke protocol 4. Occupational Therapy, physical therapy and speech therapy consults 5. Recommend obtaining ophthalmology evaluation if patient continues to report visual deficits 6. Recommend repeat noncontrast head CT on 09/28/2023 to assess for any hemorrhagic transformation involving the right MCA distribution stroke observed clinically on 09/27/2023 since the patient is on Eliquis 7. Keep head of bed elevated to 30 degrees as tolerated Consult Attestations 2 Medical Necessity Statement: Patient evaluated by neurology for code stroke emergency department room #16/acute care Coding Level of Care Code 44435 Diagnoses Acute right MCA stroke I63.511
[2023-09-27 10:23] LABS: INR 1.24 (0.8-1.2); Partial Thromboplastin Time 27.1 SECONDS (23.9-36.7)
--- NOTE | 2023-09-27 11:17 | PC.PHAR ---
PT IS FROM [facility]
[2023-09-27] MEDS: iohexol 350 mg/mL 500 mL Btl (per mL) IV (11:19)
[2023-09-27 12:15] LABS: Amphetamines Screen Urine Negative (Negative); Barbiturates Screen Urine Negative (Negative); Benzodiazepines Screen Urine Negative (Negative); Cocaine Screen Urine Negative (Negative); Opiate Screen Urine Positive (Negative); PCP Screen Urine Negative (Negative); THC Screen Urine Negative (Negative)
[2023-09-27 12:21] LABS: Add Urine Culture? Yes; Add Urine Microscopic? YES; Bacteria Urine 1+ /hpf; Bilirubin Urine Neg (Negative); Blood Urine 3+ (Negative); Glucose Urine UA Norm (Normal); Ketones Urine Negative (Negative); Leukocyte Esterase Urine Negative (Negative); Nitrate Urine Negative (Negative); Protein Urine Trace (Negative); RBC Urine 15-25 /hpf (0-2); Squamous Epithelial Cell Urine RARE /hpf (0-5); Sulfosalicylic Acid Urine Negative (Negative); Urine Appearance Clear (CLEAR); Urine Color Yellow (Yellow); Urobilinogen Urine Norm (Negative); WBC Urine 0-4 /hpf (0-5); pH Urine 8 (5-7)
--- NOTE | 2023-09-27 12:54 | CT_ITS ---
WS: [id number] CT ABDOMEN PELVIS TECHNIQUE: Noncontrast CT of the abdomen and pelvis with coronal and sagittal reformatted images. CLINICAL INFORMATION: flank pain COMPARISON: None. DLP: 559.[address] scans at [facility] use at least one of these dose optimization techniques: automated e xposure control; mA and/or kV adjustment per patient size (includes targeted exams where dose is matc hed to clinical indication); or iterative reconstruction. FINDINGS: Bulky enlarged uterus with multiple calcified and noncalcified uterine fibroids present in 2018 with progression. Rectosigmoid constipation. Normal appendix. Normal noncontrast liver. Large esophageal h iatal hernia with partial intrathoracic stomach appears progressed. Small bilateral pleural effusions . Bibasilar atelectasis. Noncontrast spleen is normal. Noncontrast pancreas is normal. Adrenal glands are normal. Atrophic LEFT kidney. This is progressed compared to previous. No hydronephrosis in the RIGHT kidney. Contrast in the RIGHT ureter from CT scan earlier today. Contrast in the bladder. Normal caliber abdominal aorta. Aortic calcification. Advanced degenerative arthritis bilateral hips with subchondral cystic change. Osteopenia. Thoracolumbar scoliosis. CT/CT kidney stone [id number] IMPRESSION: 1. Atrophic LEFT kidney is new from previous. No hydronephrosis in the RIGHT kidney. 2. Bulky fibroid uterus progressed compared to previous 3. Large esophageal hernia with partial intrathoracic stomach. 4. Small bilateral pleural effusions.
--- NOTE | 2023-09-27 13:36 | P.HP_ITS ---
Providers/Chief Complaint 2 Admitting Physician: Vangie Hou MD Primary Care Provider: Anabelle Hernandes DO Chief Complaint: stroke alert History of Present Illness Britany Alvarenga is a 78 year old female who presented to the emergency room with chief complaint of acute left-sided weakness today. She herself does not remember a lot of the details though she does remember being in the shower. She was being assisted in the shower by facility staff around 830 this morning when they noticed acute onset of left-sided weakness, most notable in the left upper extremity, associated with speech difficulties and possibly some vision changes. NIH stroke scale score on arrival was 7 with notes indicating an inability to look past the midline towards the left, possible left visual field defect, inability to move the left arm, left-sided neglect and dysarthria. 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 She is chronically on Eliquis and therefore was not a candidate for tPA despite presenting shortly after symptom onset. She was seen by neurology in the emergency room. CTA of the head and neck did not show any evidence of large vessel occlusion. Recommendation was for continuation of Eliquis and addition of statin therapy. Patient has a history of a brother who had significant adverse effects from statin therapy such that she does not want to start a statin therapy. We talked about potential benefits in regards to stroke diagnosis as well as known potential side effects, allowing her to make an informed decision. She expressed understanding of potential benefit but does not want to except potential risks. We also discussed possibility of antiplatelet therapy in addition to anticoagulation but given potential increased risk of bleeding while also on Eliquis patient would like to think about this a bit more before making a decision. Neurology recommended a repeat CT of the head without contrast on September 27 to evaluate for any possible hemorrhagic transformation involving the right MCA distribution stroke clinically observed today 09/27/2023. At the present time patient's repeat NIH stroke scale score performed by me is 3 with mild facial droop and LUE drift and ataxia. She is being admitted for further evaluation and monitoring given anticoagulation and acute CVA. In my evaluation, she denies prior history of stroke. No known family history of stroke. Never smoked. May have had a pain pill prior to today's events. Review of Systems 2 General: Reports: Other (ROS as per HPI or as otherwise noted here) Eyes: Reports: other (denies acute vision changes at time of my evaluation) Card: Denies: chest pain Resp: Denies: dyspnea GI: Denies: abdominal pain, nausea, vomiting, diarrhea, constipation, hematochezia or melena : Denies: difficulty voiding or hematuria Musc: Reports: other (has not been able to participate in as much rehab as she would like lately) Neuro: Reports: frequent falls (prior to BKA); Denies: headache(s) Erasto/Lymph: Denies: easy bruising or easy bleeding Medications/Allergies Home Medications Medication Instructions Recorded Confirmed Last Taken Type antiarthritic combination no.2 900 900 mg PO QAM 11/11/21 09/27/23 08/03/23 History mg tablet (glucosamine-chondroitin) calcium 600 mg-D3 800 unit-mag11 1 tab PO DAILY 11/11/21 09/27/23 08/03/23 History 50 mf-tqsg-plmyfo-edyta-s.borat tablet cholecalciferol (vitamin D3) 25 25 mcg PO DAILY 11/11/21 09/27/23 08/03/23 History mcg (1,000 unit) capsule multivitamin 1 tab PO DAILY 11/11/21 09/27/23 08/03/23 History amlodipine 2.5 mg tablet 2.5 mg PO DAILY #90 tabs 05/11/23 09/27/23 08/04/23 Rx amlodipine 5 mg tablet 5 mg PO DAILY #90 tabs 05/11/23 09/27/23 08/04/23 Rx carvedilol 6.25 mg tablet 6.25 mg PO BID #180 tabs 05/11/23 09/27/23 08/03/23 Rx enalapril maleate 10 mg tablet 10 mg PO BID #180 tabs 05/11/23 09/27/23 08/03/23 Rx acetaminophen 325 mg tablet 650 mg PO Q4H PRN Pain 08/19/23 09/27/23 Unknown History apixaban 5 mg tablet (Eliquis) 5 mg PO BID 08/19/23 09/27/23 Unknown History bisacodyl 10 mg rectal suppository 10 mg SD DAILY PRN Constipation 08/19/23 09/27/23 Unknown History (Dulcolax (bisacodyl)) magnesium hydroxide 400 mg/5 mL 30 ml PO DAILY PRN Constipation 08/19/23 09/27/23 Unknown History oral suspension (Milk of Magnesia) sodium phosphates 19 gram-7 118 ml SD DAILY PRN Constipation 08/19/23 09/27/23 Unknown History gram/118 mL enema (Fleet Enema) amino acids-protein hydrolysate 15 1 ea PO DAILY 09/27/23 09/27/23 Unknown History gram-101 kcal/30 mL oral liquid camphor-menthol 0.2 %-3.5 % 1 applic topical DAILY PRN Pain 09/27/23 09/27/23 Unknown History topical gel hydrocodone 5 mg-acetaminophen 325 1 tab PO Q4H PRN Pain 09/27/23 09/27/23 Unknown History mg tablet polyethylene glycol 3350 17 See Rx Instructions .Route .COMPLEX 09/27/23 09/27/23 Unknown History gram/dose oral powder (Miralax) sertraline 25 mg tablet 25 mg PO BEDTIME 09/27/23 09/27/23 Unknown History thiamine HCl (vitamin B1) 100 mg 100 mg PO DAILY 09/27/23 09/27/23 Unknown History tablet (Vitamin B-1) tramadol 50 mg tablet 50 mg PO Q4H PRN Pain 09/27/23 09/27/23 Unknown History Allergies Allergy/AdvReac Type Severity Reaction Status Date / Time No Known Allergies Allergy Verified 08/02/23 18:55 PFSH Acute 2 PFSH: Medical History (Updated 09/27/23 @ 15:01 by Vangie Hou MD) Hiatal hernia noted on CT imaging, with partial intrathoracic stomach 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 Done due to ischemic limb from arterial and venous thrombosis LLE. [facility] in [place]. Started on eliquis postoperatively. Family History Other CAD (coronary artery disease) Dementia Hypertension Denies family history of Diabetes Clotting disorder Hyperlipidemia Psychiatric illness Chronic kidney disease (CKD) Suicide Anesthesia complication Bleeding disorder Family history of premature coronary artery disease Lung disease Cancer Stroke Social History (Updated 09/27/23 @ 14:15 by Vangie Hou MD) Smoking and tobacco/nicotine status: never used tobacco/nicotine Alcohol intake: current Alcohol intake frequency: 0-2 Drinks per Day Substance/Drug Use: never Adopted: No Caregiver/support person: No Lives independently: No Housing: Assisted Vitals/I&O/Wt Last Vital Signs Pulse 76 09/27/23 11:40 Resp 18 09/27/23 12:45 BP 115/73 09/27/23 13:34 Pulse Ox 100 09/27/23 12:45 O2 Del Method Room Air 09/27/23 12:45 Physical Exam 2 Narrative: Patient is awake and alert, able to provide history and answer questions. Slight left-sided facial droop noticed predominantly at the mouth and to a lesser degree on the forehead. Extraocular movements are intact. Visual olguin are intact. Oropharynx with moist mucous membranes. Uvula midline. Neck is supple. Lungs are clear to auscultation bilaterally. Cardiovascular exam reveals a regular rate and rhythm without any murmurs gallops or rubs. Abdomen is soft, nontender with positive bowel sounds. Left BKA noted. Left stump is dressed and Sterling wrapping that is clean dry and intact. Right lower extremity with chronic skin changes noted distally. At the great toe on the right foot it looks like she has stubbed the toe with some scabbing noted underneath the nailbed on the distal tip and medially. The heel on the right foot is quite soft with some ecchymosis noted medially approximately nickel size diameter. No fluctuance or extending erythema noted. Skin is not broken at this time but calloused more proximally and softening distally in area where where softness more prominent, not oozing or associated odor. All of the toes have a dusky reddish appearance. Heel protector in place. Toe is equivocal. No pitting edema. Data 09/27/23 09:27 09/27/23 09:27 Other Labs: Radiology Impressions Head CT 09/27/23 09:30 IMPRESSION: 1. No evidence of intracranial hemorrhage or mass effect. 2. Moderate small vessel changes with moderate parenchymal volume loss. 3. Chronic cortical infarcts involving the RIGHT frontoparietal junction and RIGHT parietal occipital junction extending into the posterior temporal lobe with encephalomalacia. 4. Chronic lacunar infarcts in the RIGHT caudate and RIGHT cerebellum. 5. No acute intracranial findings. Chest X-Ray 09/27/23 09:38 IMPRESSION: Minimal bibasilar densities suggesting atelectasis and/or scarring. Findings compatible with large hiatal hernia. Head/Neck CTA 09/27/23 09:38 IMPRESSION: 1. No significant ICA stenosis bilaterally. 2. No evidence of proximal flow-limiting intracranial stenosis. 3. Slightly ectatic basilar artery measuring 5 mm. 4. Chronic infarcts described on the head CT from earlier today. Abdomen/Pelvis CT 09/27/23 12:54 IMPRESSION: 1. Atrophic LEFT kidney is new from previous. No hydronephrosis in the RIGHT kidney. 2. Bulky fibroid uterus progressed compared to previous 3. Large esophageal hernia with partial intrathoracic stomach. 4. Small bilateral pleural effusions. Laboratory Results WBC 7.07 10^3/uL (3.29-11.43) 09/27/23 09:27 RBC 4.09 10^6/uL (3.85-5.65) 09/27/23 09:27 Hgb 11.90 g/dL (11.27-16.99) 09/27/23 09:27 Hct 37.7 % (36-47) 09/27/23 09: MCV 92.2 fl (85-98) 09/27/23 09:27 MCH 29.1 pg (27-33) 09/27/23 09: MCHC 31.6 g/dL (30-55) 09/27/23 09: RDW 16.1 % (12.1-15.1) H 09/27/23 09:27 Plt Count 268 10^3/cmm (157-399) 09/27/23 09:27 MPV 9.2 fL (7.4-10.4) 09/27/23 09: Neut % (Auto) 83.3 % 09/27/23 09:27 Lymph % (Auto) 9.5 % 09/27/23 09:27 [place] % (Auto) 5.8 % 09/27/23 09: Eos % (Auto) 0.4 % 09/27/23 09:27 Baso % (Auto) 0.6 % 09/27/23 09: Neut # (Auto) 5.89 10^3/uL (1.8-7.7) 09/27/23 09: Lymph # (Auto) 0.7 10^3/uL (0.8-4.8) L 09/27/23 09:27 [place] # (Auto) 0.4 10^3/uL (0.2-0.9) 09/27/23 09: Eos # (Auto) 0.0 10^3/uL (0.0-0.8) 09/27/23 09: Baso # (Auto) 0.0 10^3/uL (0.0-0.1) 09/27/23: Nucleated RBC % (auto) 0 % 09/27/23: Nucleated RBCs # 0.0 /100WBC 09/27/23 09: PT 16.00 SECONDS (12.1-14.9) H 09/27/23 09: INR 1.24 (0.8-1.2) H 09/27/23 09: APTT 27.1 SECONDS (23.9-36.7) 09/27/23 09:27 Sodium 142 mmol/L (136-145) 09/27/23 09: Potassium 4.3 mmol/L (3.5-5.1) 09/27/23 09: Chloride 103 mmol/L (98-107) 09/27/23 09: Carbon Dioxide 26 mmol/L (22-29) 09/27/23 09:27 Anion Gap 17.3 (5-19) 09/27/23 09:27 BUN 27 mg/dL (8-23) H 09/27/23 09:27 Creatinine 0.8 mg/dL (0.5-0.9) 09/27/23 09:27 GFR Calculation Not Reportable 09/27/23 09:27 Glucose 166 mg/dL (65-115) H 09/27/23 09:27 POC Glucose 184 mg/dL (70-110) H 09/27/23 09:37 Calculated Osmolality 303 mOsm/kg (285-295) H 09/27/23 09:27 Calcium 8.8 mg/dL (8.5-10.5) 09/27/23 09:27 Total Bilirubin 0.3 mg/dL (0.15-1.2) 09/27/23 09: AST 16 U/L (0-32) 09/27/23 09: ALT 14 U/L (0-33) 09/27/23 09: Alkaline Phosphatase 106 U/L (35-105) H 09/27/23 09:27 Total Protein 6.1 g/dL (6.6-8.7) L 09/27/23 09: Albumin 3.4 g/dL (3.5-5.2) L 09/27/23 09: Globulin 2.7 g/dL (1.3-4.6) 09/27/23 09: Urine Color Yellow (Yellow) 09/27/23 11:50 Urine Appearance Clear (CLEAR) 09/27/23 11:50 Urine pH 8 (5-7) H 09/27/23 11:50 Ur Specific [place] 1.010 (1.005-1.030) 09/27/23 11:50 Urine Protein Trace (Negative) 09/27/23 11:50 Urine Glucose (UA) Norm (Normal) 09/27/23 11:50 Urine Ketones Negative (Negative) 09/27/23 11:50 Urine Blood 3+ (Negative) H 09/27/23 11:50 Urine Nitrate Negative (Negative) 09/27/23 11:50 Urine Bilirubin Neg (Negative) 09/27/23 11:50 Prot Sulfosalicylic Acd Negative (Negative) 09/27/23 11:50 Urine Urobilinogen Norm mg/dL (Negative) 09/27/23 11:50 Ur Leukocyte Esterase Negative (Negative) 09/27/23 11:50 Urine RBC 15-25 /hpf (0-2) H 09/27/23 11:50 Urine WBC 0-4 /hpf (0-5) H 09/27/23 11:50 Ur Squamous Epith Cells Rare /hpf (0-5) 09/27/23 11:50 Amorphous Sediment Not Reportable 09/27/23 11:50 Urine Bacteria 1+ /hpf (NONE) H 09/27/23 11:50 Urine Opiates Screen Positive ng/mL (Negative) H 09/27/23 11:50 Ur Barbiturates Screen Negative ng/mL (Negative) 09/27/23 11:50 Ur Phencyclidine Scrn Negative ng/mL (Negative) 09/27/23 11:50 Ur Amphetamines Screen Negative ng/mL (Negative) 09/27/23 11:50 U Benzodiazepines Scrn Negative ng/mL (Negative) 09/27/23 11:50 Urine Cocaine Screen Negative ng/mL (Negative) 09/27/23 11:50 U Marijuana (THC) Screen Negative ng/mL (Negative) 09/27/23 11:50 A&P Assessment and plan (1) Acute right MCA stroke: Clinical diagnosis based on presentation today with left-sided weakness noted acutely along with left-sided neglect and dysarthria along with possible visual field deficit. Initial NIH stroke scale score was 7. Most recent at 3. Not a candidate for tPA despite presenting within the window due to chronic anticoagulation with Eliquis. No prior history of stroke per my discussion with her but has history of hypertension. Never smoked. No family history of strokes. Is not on any chronic antiplatelet or statin therapy and at this point in time is declining consideration for initiation of either as described. Blood sugars today are elevated but no prior history of diabetes. Recommendation from neurology was for admission with monitoring of neurological status, further evaluation and repeat CT imaging tomorrow, along with therapy evaluations. (2) Benign essential HTN: Chronically on 7.5 mg of amlodipine daily along with carvedilol 6.25 mg twice a day and enalapril 10 mg twice a day typically with good control. (3) Kidney disease, chronic, stage III (GFR 30-59 ml/min): Renal function appears to be at at recent baseline. Qualifiers: Chronic kidney disease stage 3 subtype: stage 3a (GFR 45-59) Qualified Code(s): N18.31 - Chronic kidney disease, stage 3a (4) History of below knee amputation: Performed in early August at [facility] in [place]. This was due to ischemic limb from arterial and venous thrombosis. Emergent procedure. Still has Sterling wrap's in place. Has not been able to participate much in rehabilitation today due to challenges with her recovery and by her own admission her attitude at times. Eager to work towards becoming more independent over time and concerned how this stroke may set her back. Has as needed Tylenol, tramadol and hydrocodone for pain control postoperatively. Qualifiers: Laterality: left Qualified Code(s): Z89.512 - Acquired absence of left leg below knee (5) Chronic anticoagulation: On Eliquis, started in August of this year due to DVT and arterial thrombosis leading to left BKA. No prior history of thrombosis. Has associated slight increase in coagulation studies. (6) Depression: Post amputation which is not unexpected. Has recently been started on sertraline but not yet noted significant improvement. Qualifiers: Depression Type: major depressive disorder Major depression recurrence: unspecified whether recurrent Active/Remission status: currently active Major depression episode severity: moderate Qualified Code(s): F32.1 - Major depressive disorder, single episode, moderate (7) Pressure injury of right heel, stage 2: Present on admission (8) Statin medication declined by patient: After review of benefits specifically in regards to stroke patient's and discussion of risks. Has had a family member with significant adverse effects and will not consider under any circumstance. Plan Elevated blood sugar level without a known diagnosis of diabetes Microscopic hematuria Observation admission Serial neuroexams and NIH stroke scales Continue Eliquis Patient has declined consideration for initiation of statin therapy after discussion regarding potential benefits versus risks Patient currently has declined initiation of antiplatelet therapy after discussion regarding potential benefits versus risks though she will continue to consider Had PT/INR checked in the emergency room Will check hemoglobin A1c and lipid panel in the morning PT, OT, speech therapy evaluations Echocardiogram Telemetry monitoring Repeat CT scan of the head without contrast in the morning as per neurology recommendations Will continue amlodipine at 5 mg daily, carvedilol at 6.25 mg twice daily and enalapril equivalent, monitoring blood pressures. Will allow permissive hypertension though current pressures are within normal range after having had her morning medicines today. IV fluids x 1 L Continue Tylenol and as needed hydrocodone for pain control monitoring utilization Continue home sertraline dosing Keep your protector in place to right heel Laxatives as needed Monitor for evidence of gross hematuria or other indicators of bleeding VTE prophylaxis: Chronically on Eliquis GI Prophylaxis: Not currently indicated Antibiotics: none Pending studies: Repeat CT head ordered for am 09/27 and Echo ordered 09/26, A1c and Lipid Panel for am 09/27 Telemetry: ordered given acute stroke Odom: not currently indicated Line(s): peripheral IVs Disposition plan: Back to [facility] where she is for post-operative care after BKA in 08/2023. Depending on clinical course, may need additional therapy. Currently has declined initiation of statin or antiplatelet therapy. Code Status: Full Code Supportive care otherwise Findings, concerns and plans were discussed with patient and they were given an opportunity to ask questions Attestations 2 Medical Necessity Statement*: Currently anticipate a stay less than two midnights in this patient with acute right MCA stroke who has shown rapid improvement. Not a candidate for tenecteplase due to chronic anticoagulation with Eliquis. She did have thrombotic event last month with left lower extremity venous and arterial thrombosis leading to BKA for an ischemic limb theoretically increasing her risk for other thrombosis. With chronic anticoagulation at risk of conversion to hemorrhagic stroke though no evidence at this time. Will be monitored for worsening symptoms and reevaluated with repeat imaging tomorrow as indicated. Given both recent new and chronic comorbidities plus age and baseline current functioning, at risk of rapid clinical decline without further care in the acute care setting as described. Coding Level of Care Code Acute Code for Chg Fwd Diagnoses Acute right MCA stroke I63.511 Benign essential HTN I10 Stage 3a chronic kidney disease N18.31 Chronic kidney disease stage 3 subtype: stage 3a (GFR 45-59) History of below-knee amputation of left lower extremity Z89.512 Laterality: left Chronic anticoagulation Z79.01 Current moderate episode of major depressive disorder, unspecified whether recurrent F32.1 Depression Type: major depressive disorder Major depression recurrence: unspecified whether recurrent Active/Remission status: currently active Major depression episode severity: moderate Pressure injury of right heel, stage 2 L89.612 Statin medication declined by patient Z53.20 NIH stroke score NIHSS Level Of Consciousness - 1a: 0 Level Of Consciousness Questions - 1b: Both Correct Level Of Consciousness Commands - 1c: Both Correct Best Gaze - 2: Normal Visual Olguin - 3: No Visual Loss Facial Palsy - 4: Minor Paralysis Motor Arm Right - 5: No Drift (difficulty raising RUE due to injury but no drift noted, 5/5 hand sr account executive) Motor Arm Left - 5: Drift (and 4/5 hand sr account executive) Motor Leg Right - 6: No Drift Motor Leg Left - 6: Amputation Limb Ataxia - 7: Present In One Limb (LUE; evaluation of RUE limited due to injury but can use hand without ataxia noted) If Amputation Is Answered In Any Of The Above - Explain: Left BKA Sensory - 8: Normal Best Language - 9: No Aphasia Dysarthia - 10: Normal Extinction And Inattention - 11: 0 Score Total Score: 3
--- NOTE | 2023-09-27 15:27 | PM.DCS ---
Discharge Providers Date of Admission: 09/27/23 14:22 Date of Discharge: September 27, 2023 Attending Provider at Admission: Vangie Hou MD Attending Provider at Discharge: Vangie Hou MD Primary Care Provider: Anabelle Hernandes DO Diagnoses at Discharge Discharge Diagnosis (1) Acute right MCA stroke: Status: Acute (2) Benign essential HTN: Status: Chronic (3) Kidney disease, chronic, stage III (GFR 30-59 ml/min): Status: Chronic Qualifiers: Chronic kidney disease stage 3 subtype: stage 3a (GFR 45-59) Qualified Code(s): N18.31 - Chronic kidney disease, stage 3a Permanent problem details: Left renal atrophy (4) History of below knee amputation: Status: Chronic Qualifiers: Laterality: left Qualified Code(s): Z89.512 - Acquired absence of left leg below knee Permanent problem details: LLE. Done due to ischemic limb from arterial and venous thrombosis LLE. [facility] in [place]. Started on eliquis postoperatively. 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 (6) Depression: Status: Chronic Qualifiers: Depression Type: major depressive disorder Major depression recurrence: unspecified whether recurrent Active/Remission status: currently active Major depression episode severity: moderate Qualified Code(s): F32.1 - Major depressive disorder, single episode, moderate (7) Pressure injury of right heel, stage 2: Status: Acute Permanent problem details: 09/27/2023 present on admission (8) Statin medication declined by patient: Status: Acute Reason for Visit Reason for Visit: stroke alert Discharge Data Studies Completed and Pending Completed Studies During Hospitalization Category Date Time Status CT angio headneck* [id number] Stat Cat Scan 09/27/23 09:[address] head thrombolytic [id number] Stat Cat Scan 09/27/23 09:[address] kidney stone [id number] Stat Cat Scan 09/27/23 12:54 Completed XR chest 1V portable [id number] Stat Exams 09/27/23 09:38 Completed Pending at discharge Category Date Time Status Urine Culture Stat Lab 09/27/23 11:50 Received Radiology Impressions Head CT 09/27/23 09:30 IMPRESSION: 1. No evidence of intracranial hemorrhage or mass effect. 2. Moderate small vessel changes with moderate parenchymal volume loss. 3. Chronic cortical infarcts involving the RIGHT frontoparietal junction and RIGHT parietal occipital junction extending into the posterior temporal lobe with encephalomalacia. 4. Chronic lacunar infarcts in the RIGHT caudate and RIGHT cerebellum. 5. No acute intracranial findings. Notified Meño Bauman DO at 09/27/2023 9:39 AM. Chest X-Ray 09/27/23 09:38 IMPRESSION: Minimal bibasilar densities suggesting atelectasis and/or scarring. Findings compatible with large hiatal hernia. Head/Neck CTA 09/27/23 09:38 IMPRESSION: 1. No significant ICA stenosis bilaterally. 2. No evidence of proximal flow-limiting intracranial stenosis. 3. Slightly ectatic basilar artery measuring 5 mm. 4. Chronic infarcts described on the head CT from earlier today. Abdomen/Pelvis CT 09/27/23 12:54 IMPRESSION: 1. Atrophic LEFT kidney is new from previous. No hydronephrosis in the RIGHT kidney. 2. Bulky fibroid uterus progressed compared to previous 3. Large esophageal hernia with partial intrathoracic stomach. 4. Small bilateral pleural effusions. Laboratory Results WBC 7.07 10^3/uL (3.29-11.43) 09/27/23 09:27 RBC 4.09 10^6/uL (3.85-5.65) 09/27/23 09:27 Hgb 11.90 g/dL (11.27-16.99) 09/27/23 09:27 Hct 37.7 % (36-47) 09/27/23 09: MCV 92.2 fl (85-98) 09/27/23 09: MCH 29.1 pg (27-33) 09/27/23 09: MCHC 31.6 g/dL (30-55) 09/27/23 09: RDW 16.1 % (12.1-15.1) H 09/27/23 09:27 Plt Count 268 10^3/cmm (157-399) 09/27/23 09:27 MPV 9.2 fL (7.4-10.4) 09/27/23 09:27 Neut % (Auto) 83.3 % 09/27/23 09:27 Lymph % (Auto) 9.5 % 09/27/23 09:27 [place] % (Auto) 5.8 % 09/27/23 09: Eos % (Auto) 0.4 % 09/27/23 09: Baso % (Auto) 0.6 % 09/27/23: Neut # (Auto) 5.89 10^3/uL (1.8-7.7) 09/27/23 09: Lymph # (Auto) 0.7 10^3/uL (0.8-4.8) L 09/27/23 09: [place] # (Auto) 0.4 10^3/uL (0.2-0.9) 09/27/23: Eos # (Auto) 0.0 10^3/uL (0.0-0.8) 09/27/23: Baso # (Auto) 0.0 10^3/uL (0.0-0.1) 09/27/23 09: Nucleated RBC % (auto) 0 % 09/27/23: Nucleated RBCs # 0.0 /100WBC 09/27/23 09: PT 16.00 SECONDS (12.1-14.9) H 09/27/23 09: INR 1.24 (0.8-1.2) H 09/27/23 09: APTT 27.1 SECONDS (23.9-36.7) 09/27/23 09:27 Sodium 142 mmol/L (136-145) 09/27/23 09: Potassium 4.3 mmol/L (3.5-5.1) 09/27/23 09: Chloride 103 mmol/L (98-107) 09/27/23 09: Carbon Dioxide 26 mmol/L (22-29) 09/27/23 09:27 Anion Gap 17.3 (5-19) 09/27/23 09:27 BUN 27 mg/dL (8-23) H 09/27/23 09:27 Creatinine 0.8 mg/dL (0.5-0.9) 09/27/23 09:27 GFR Calculation Not Reportable 09/27/23 09: Glucose 166 mg/dL (65-115) H 09/27/23 09:27 POC Glucose 184 mg/dL (70-110) H 09/27/23 09:37 Calculated Osmolality 303 mOsm/kg (285-295) H 09/27/23 09: Calcium 8.8 mg/dL (8.5-10.5) 09/27/23 09: Total Bilirubin 0.3 mg/dL (0.15-1.2) 09/27/23 09: AST 16 U/L (0-32) 09/27/23 09: ALT 14 U/L (0-33) 09/27/23 09: Alkaline Phosphatase 106 U/L (35-105) H 09/27/23 09: Total Protein 6.1 g/dL (6.6-8.7) L 09/27/23 09: Albumin 3.4 g/dL (3.5-5.2) L 09/27/23 09: Globulin 2.7 g/dL (1.3-4.6) 09/27/23 09: Urine Color Yellow (Yellow) 09/27/23 11:50 Urine Appearance Clear (CLEAR) 09/27/23 11:50 Urine pH 8 (5-7) H 09/27/23 11:50 Ur Specific [place] 1.010 (1.005-1.030) 09/27/23 11:50 Urine Protein Trace (Negative) 09/27/23 11:50 Urine Glucose (UA) Norm (Normal) 09/27/23 11:50 Urine Ketones Negative (Negative) 09/27/23 11:50 Urine Blood 3+ (Negative) H 09/27/23 11:50 Urine Nitrate Negative (Negative) 09/27/23 11:50 Urine Bilirubin Neg (Negative) 09/27/23 11:50 Prot Sulfosalicylic Acd Negative (Negative) 09/27/23 11:50 Urine Urobilinogen Norm mg/dL (Negative) 09/27/23 11:50 Ur Leukocyte Esterase Negative (Negative) 09/27/23 11:50 Urine RBC 15-25 /hpf (0-2) H 09/27/23 11:50 Urine WBC 0-4 /hpf (0-5) H 09/27/23 11:50 Ur Squamous Epith Cells Rare /hpf (0-5) 09/27/23 11:50 Amorphous Sediment Not Reportable 09/27/23 11:50 Urine Bacteria 1+ /hpf (NONE) H 09/27/23 11:50 Urine Opiates Screen Positive ng/mL (Negative) H 09/27/23 11:50 Ur Barbiturates Screen Negative ng/mL (Negative) 09/27/23 11:50 Ur Phencyclidine Scrn Negative ng/mL (Negative) 09/27/23 11:50 Ur Amphetamines Screen Negative ng/mL (Negative) 09/27/23 11:50 U Benzodiazepines Scrn Negative ng/mL (Negative) 09/27/23 11:50 Urine Cocaine Screen Negative ng/mL (Negative) 09/27/23 11:50 U Marijuana (THC) Screen Negative ng/mL (Negative) 09/27/23 11:50 Vitals Last Vital Signs Pulse 76 09/27/23 11:40 Resp 18 09/27/23 12:45 BP 115/73 09/27/23 13:34 Pulse Ox 100 09/27/23 12:45 O2 Del Method Room Air 09/27/23 12:45 Discharge Plan Discharge Patient Disposition: Home Condition: Stable Prescriptions: No Action [id number] 600 mg calcium- 800 unit-50 mg tablet 1 tab PO DAILY glucosamine-chondroitin 900 mg tablet 900 mg PO QAM multivitamin Tablet 1 tab PO DAILY cholecalciferol (vitamin D3) 25 mcg (1,000 unit) capsule 25 mcg PO DAILY carvedilol 6.25 mg tablet 6.25 mg PO BID Qty: 180 1RF Rx Instructions: must administer with a meal/food amlodipine 2.5 mg tablet 2.5 mg PO DAILY Qty: 90 1RF Rx Instructions: ALONG WITH 5 MG TABLET TO=7.5MG amlodipine 5 mg tablet 5 mg PO DAILY Qty: 90 1RF Rx Instructions: ALONG WITH 2.5MG TO=7.5MG DAILY enalapril maleate 10 mg tablet 10 mg PO BID Qty: 180 1RF acetaminophen 325 mg Tablet 650 mg PO Q4H PRN (Reason: Pain) magnesium hydroxide [Milk of Magnesia] 400 mg/5 mL Suspension 30 ml PO DAILY PRN (Reason: Constipation) bisacodyl [Dulcolax (bisacodyl)] 10 mg Suppository 10 mg LA DAILY PRN (Reason: Constipation) Fleet Enema 19-7 gram/118 mL Enema 118 ml LA DAILY PRN (Reason: Constipation) Eliquis 5 mg Tablet 5 mg PO BID Economy 5-325 mg Tablet 1 tab PO Q4H PRN (Reason: Pain) Vitamin B-1 100 mg Tablet 100 mg PO DAILY tramadol 50 mg tablet 50 mg PO Q4H PRN (Reason: Pain) sertraline 25 mg Tablet 25 mg PO BEDTIME Miralax 17 gram/dose Powder See Rx Instructions .ROUTE .COMPLEX Rx Instructions: MIX 1 CAPFUL (17 g) IN 8 OUNCES LIQUID AND DRINK ENTIRE LIQUID DAILY NEEDED FOR CONSTIPATION. Pro-Stat 101 15-101 gram-kcal/30 mL Liquid 1 ea PO DAILY Biofreeze 0.2-3.5 % Gel 1 applic TOPICAL DAILY PRN (Reason: Pain) Rx Instructions: rub in gently and completely Referrals: Anabelle Hernandes DO [Primary Care Provider] - Patient Instructions: Opioid Safety Quality Metrics Clinical Quality Measures [ Cerebrovascular Accident { Contraindication to Antithrombotic: Drug declined by patient; Contraindication to Anticoagulation: None; anticoagulation prescribed; Contraindication to Statin: Drug declined by patient; Contraindication to tPA: Did not meet criteria; Onset of Symptoms Date: 09/27/23; Onset of Symptoms Time: 08:30; Symptom Onset Unknown: No; Pt Provided Written Stroke Discharge Instructions: Patient given written information; Rehab services assessed: Physical therapy, Occupational therapy, Speech therapy;}] Coding Level of Care Code Acute Code for [facility] Diagnoses Acute right MCA stroke I63.511 Benign essential HTN I10 Stage 3a chronic kidney disease N18.31 Chronic kidney disease stage 3 subtype: stage 3a (GFR 45-59) History of below-knee amputation of left lower extremity Z89.512 Laterality: left Chronic anticoagulation Z79.01 Current moderate episode of major depressive disorder, unspecified whether recurrent F32.1 Depression Type: major depressive disorder Major depression recurrence: unspecified whether recurrent Active/Remission status: currently active Major depression episode severity: moderate Pressure injury of right heel, stage 2 L89.612 Statin medication declined by patient Z53.20
--- NOTE | 2023-09-27 15:31 | USCV_ITS ---
Britany Alvarenga Age: 78 Gender: F : 1945 Exam Date: 09/27/2023 18:20 Ordering Phys: Vangie Hou MD Technologist: VICKEY Exam Location: [facility] [place] Indication: acute MCA CVA, history of prior CVA. left-sided weakness. left facial droop. BP: 118 / 63 HR: 61 Rhythm: Sinus Technical Quality: Adequate MEASUREMENTS (Male / Female) Normal Values 2D ECHO LV Diastolic Diameter PLAX 3.6 cm 4.2 - 5.9 / 3.9 - 5.3 cm IVS Diastolic Thickness 1.7 cm 0.6 - 1.0 / 0.6 - 0.9 cm IVS Systolic Thickness 2.0 cm LVPW Diastolic Thickness 1.1 cm 0.6 - 1.0 / 0.6 - 0.9 cm LVPW Systolic Thickness 1.7 cm LVOT Diameter 1.5 cm LV Ejection Fraction 2D Teich 65.4 % LV Ejection Fraction MOD 2C 74.5 % LV Ejection Fraction 2C AL 73.5 % LA Diameter 2.6 cm LA Sys Volume AL 44.6 cm cubed LA Sys Volume Index AL 30.5 cm cubed/m squared Aorta at Sinotubular Diameter 2.8 cm IVC Diameter 1.0 cm M-MODE LA Ao Ratio MM 1.3 AV Cusp Separation MM 1.7 cm DOPPLER AV Peak Velocity 136.0 cm/s LVOT Peak Velocity 104.0 cm/s AV Area Cont Eq vti 1.7 cm squared AV Area Cont Eq pk 1.4 cm squared MV Peak Velocity 130.0 cm/s MV Area PHT 3.1 cm squared Mitral E to A Ratio 0.7 TV Peak Velocity 269.0 cm/s TR Peak Velocity 277.0 cm/s TR Peak Gradient 30.7 mmHg TV Peak E Velocity 44.0 cm/s Right Atrial Pressure 3.0 mmHg Pulmonary Artery Systolic Pressu 33.7 mmHg PV Peak Velocity 91.0 cm/s FINDINGS Left Ventricle Left ventricle is normal in size. LV systolic function is normal with EF of 60 to 65%. No regional wall motion abnormalities are seen. Grade 1 diastolic dysfunction Right Ventricle Normal in size and fucntion Right Atrium Normal in size Left Atrium Normal in size Mitral Valve Moderate to severe mitral annular calcification seen. Mild mitral regurgitation. Aortic Valve Aortic valve is thickened. No significant stenosis or regurgitation Tricuspid Valve Mild tricuspid regurgitation. Pulmonary artery systolic pressure is normal Pulmonic Valve Not well visualized Pericardium Normal Aorta Normal in size IVC Appears to be normal CONCLUSIONS LV systolic function is normal with EF of 60-65% Grade 1 diastolic dysfunction Mild mitral regurgitation Mild tricuspid regurgitation Compared to prior echocardiogram from 2016, no significant changes are seen. Guille Pollock MD (Electronically Signed) Final Date: 28 September 2023 08:53 S
[2023-09-27] MEDS: sodium chloride 0.9% 1,000 ML 100 ML IV (16:20)
[2023-09-27] MEDS: lisinopril 20 mg Tablet PO (17:30)
[2023-09-27] MEDS: apixaban 5 mg Tablet PO (22:22)
[2023-09-27] MEDS: sertraline 50 mg Tablet 25 MG PO (22:22)
[2023-09-27] MEDS: carvedilol 6.25 mg Tablet PO (22:22)
[2023-09-28 00:53] VITALS: BP 109/67; PULSE 69; RESP 18; TEMP 37; O2SAT 96
[2023-09-28 04:37] LABS: Estmated Average Glucose 88; Hemoglobin A1C 4.7 % (4.0-6.0)
[2023-09-28 04:40] LABS: Chol HDL Ratio 4.24 mg/dL (0.0-4.40); Cholesterol 178 mg/dL (0-200); HDL Cholesterol 42 mg/dL (60-100); LDL Cholesterol Calculated 103 mg/dL (50-129); LDL HDL Ratio 2.45 RATIO (0.00-3.22); Triglycerides 165 mg/dL (0-150)
[2023-09-28] MEDS: HYDROcodone-acetaminophen 5-325 mg Tablet 1 TAB PO (04:47)
[2023-09-28 05:02] VITALS: BP 110/67; PULSE 80; RESP 18; TEMP 36.4; O2SAT 96
[2023-09-28 06:00] VITALS: PULSE 63
--- NOTE | 2023-09-28 06:00 | CTR_ITS ---
PROCEDURE INFORMATION: Exam: CT Head Without Contrast Exam date and time: 09/28/2023 5:32 AM Age: 78 years old Clinical indication: Condition or disease; Other: Stroke follow up; Additional info: Stroke follow up, on eliquis, mca CVA 09/26 TECHNIQUE: Imaging protocol: Computed tomography of the head without contrast. Radiation optimization: All CT scans at this facility use at least one of these dose optimization techniques: automated exposure control; mA and/or kV adjustment per patient size (includes targeted exams where dose is matched to clinical indication); or iterative reconstruction. COMPARISON: CT angio headneck* [id number] 09/27/2023 11:10 AM RADIATION DOSE METRICS: Total DLP (mGy-cm): 1114.8 FINDINGS: Brain: There is age-related cerebral atrophy. There are moderate areas of decreased attenuation within the periventricular white matter suspicious for chronic microvascular ischemic changes. There are chronic bilateral occipital lobe infarcts. There is no evidence of acute intracranial hemorrhage. Idiopathic calcifications are seen within the bilateral basal ganglia Cerebral ventricles: No ventriculomegaly. Paranasal sinuses: Visualized sinuses are unremarkable. No fluid levels. Mastoid air cells: Visualized mastoid air cells are well aerated. Bones: Unremarkable. No acute fracture. Soft tissues: Unremarkable. CT/CT head wo con* [id number] IMPRESSION: 1. No acute intracranial abnormality. 2. Atrophy, chronic microvascular ischemic changes and small chronic bilateral occipital lobe infarcts
[2023-09-28 07:26] VITALS: BP 117/62; PULSE 68; RESP 16; TEMP 36.7; O2SAT 98
[2023-09-28] MEDS: amlodipine 5 mg Tablet PO (09:13)
[2023-09-28] MEDS: lisinopril 20 mg Tablet PO (09:13)
[2023-09-28] MEDS: apixaban 5 mg Tablet PO (09:13)
[2023-09-28] MEDS: carvedilol 6.25 mg Tablet PO (09:13)
--- NOTE | 2023-09-28 09:47 | PC.CHAP ---
Pastoral Care Encounter/Spiritual Assessment Type of Contact [] Declined cultural centre manager visit [] Patient/Family/Request visit [] Outpatient visit [] Follow-up visit [] Physician referral [] Code/Alert [x] Routine visit [] Staff referral [] Actively dying [] Patient sleeping [] Family support [] [] Out of room [] Palliative care [] [] Receiving care in room [] Pre-surgical visit [] Trauma [] Long length of stay [] ICU visit [] Other: Relational/Emotional Strength [x] Patient feels connected with others/family/visitors/staff [] Distress [] Loneliness/isolation [] Abandonment Spirituality of Patient [x] Person of [place] [] Attends Amish of their [place] [x] Believes in Prayer [] Reads Bible or Baptism materials [] There are Spiritual issues to be addressed 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 Interventions [x] Prayer [x] Active listening [x] Non-anxious presence [x] Spiritual/emotional support [] Crisis/trauma care [] Spiritual counseling [] Bereavement support [] Provided bereavement packet [] Provided Bible/devotional materials [] Provided toy/stuffed animal, coloring book to patient or family member [] Provided Communion [] Anointing/[place] [] Salvation [x] Completed spiritual assessment [] Other: Impact on Illness or Injury [] Angry [] Fearful [] Anxious [] Often cries [] Exhaustion [] Unable to work [] Unable to attend episcopalian [] Unable to walk/stand [] Unable to read [] Unable to drive [] Unable to eat/drink [] Unable to sleep [] Unable to be with family [] Patient intubated [] Other: Summary Time spent with patient 5 min
--- NOTE | 2023-09-28 11:09 | PM.DCS ---
Discharge Providers Date of Admission: 09/27/23 14:22 Date of Discharge: September 28, 2023 Attending Provider at Admission: Vangie Hou MD Attending Provider at Discharge: Duncan Villagomez MD Primary Care Provider: Anabelle Hernandes DO Diagnoses at Discharge Discharge Diagnosis (1) Acute right MCA stroke: Status: Acute (2) Benign essential HTN: Status: Chronic (3) Kidney disease, chronic, stage III (GFR 30-59 ml/min): Status: Chronic Qualifiers: Chronic kidney disease stage 3 subtype: stage 3a (GFR 45-59) Qualified Code(s): N18.31 - Chronic kidney disease, stage 3a Permanent problem details: Left renal atrophy (4) History of below knee amputation: Status: Chronic Qualifiers: Laterality: left Qualified Code(s): Z89.512 - Acquired absence of left leg below knee Permanent problem details: LLE. Done due to ischemic limb from arterial and venous thrombosis LLE. [facility] in [place]. Started on eliquis postoperatively. 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 (6) Depression: Status: Chronic Qualifiers: Active/Remission status: currently active Depression Type: major depressive disorder Major depression episode severity: moderate Major depression recurrence: unspecified whether recurrent Qualified Code(s): F32.1 - Major depressive disorder, single episode, moderate (7) Pressure injury of right heel, stage 2: Status: Acute Permanent problem details: 09/27/2023 present on admission (8) Statin medication declined by patient: Status: Acute Reason for Visit Reason for Visit: stroke alert Brief History: History as per HPI: Britany Alvarenga is a 78 year old female who presented to the emergency room with chief complaint of acute left-sided weakness today. She herself does not remember a lot of the details though she does remember being in the shower. She was being assisted in the shower by facility staff around 830 this morning when they noticed acute onset of left-sided weakness, most notable in the left upper extremity, associated with speech difficulties and possibly some vision changes. NIH stroke scale score on arrival was 7 with notes indicating an inability to look past the midline towards the left, possible left visual field defect, inability to move the left arm, left-sided neglect and dysarthria. 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 She is chronically on Eliquis and therefore was not a candidate for tPA despite presenting shortly after symptom onset. She was seen by neurology in the emergency room. CTA of the head and neck did not show any evidence of large vessel occlusion. Recommendation was for continuation of Eliquis and addition of statin therapy. Patient has a history of a brother who had significant adverse effects from statin therapy such that she does not want to start a statin therapy. We talked about potential benefits in regards to stroke diagnosis as well as known potential side effects, allowing her to make an informed decision. She expressed understanding of potential benefit but does not want to except potential risks. We also discussed possibility of antiplatelet therapy in addition to anticoagulation but given potential increased risk of bleeding while also on Eliquis patient would like to think about this a bit more before making a decision. Neurology recommended a repeat CT of the head without contrast on September 27 to evaluate for any possible hemorrhagic transformation involving the right MCA distribution stroke clinically observed today 09/27/2023. At the present time patient's repeat NIH stroke scale score performed by me is 3 with mild facial droop and LUE drift and ataxia. She is being admitted for further evaluation and monitoring given anticoagulation and acute CVA. In my evaluation, she denies prior history of stroke. No known family history of stroke. Never smoked. May have had a pain pill prior to today's events. Hospital Course Hospital Course Patient was admitted to the hospital for further evaluation and management of acute right MCA stroke. During hospitalization she worked well with speech therapy. Patient has come back to her baseline mentation. For medical therapy for stroke treatment plan was discussed in detail with the patient. Reluctantly at first but patient was agreeable to start aspirin while monitoring hemoglobin in the next few weeks along with anticoagulation. Patient did not want to start statin given her family history of poor response and allergic reaction to statins though she is agreeable to give a trial of gemfibrozil. She has been discharged in hemodynamically stable condition back to SNF with addition of baby aspirin and gemfibrozil. She should have a repeat CBC done in 2 weeks. Physical Exam Narrative: General: No acute distress, AO x3, Slightly slow to respond, left-sided facial droop HEENT: PERRLA, pupils bilaterally equal and reactive Chest: Normal vesicular breath sounds, no added sounds, equal good air entry bilaterally CVS: S1-S2 regular, no murmurs, no tachycardia, no gallops, no rubs Abdomen: Soft, nontender, no organomegaly, bowel sounds present Neuro: No focal deficits, no facial deformity, AO x3, power 5/5 in all limbs extremity: Left BKA, right foot and heel protectors, all toes have dusky reddish appearance without any loosening or odor Discharge Data Studies Completed and Pending Completed Studies During Hospitalization Category Date Time Status CT angio headneck* [id number] Stat Cat Scan 09/27/23 09:[address] head thrombolytic [id number] Stat Cat Scan 09/27/23 09:[address] head wo con* [id number] Routine Cat Scan 09/28/23 06:[address] kidney stone [id number] Stat Cat Scan 09/27/23 12:54 Completed XR chest 1V portable [id number] Stat Exams 09/27/23 09:38 Completed CV. echo complete* [id number] Routine Ultrasound 09/27/23 15:31 Completed Pending at discharge Category Date Time Status Urine Culture Stat Lab 09/27/23 11:50 Results Radiology Impressions Chest X-Ray 09/27/23 09:38 IMPRESSION: Minimal bibasilar densities suggesting atelectasis and/or scarring. Findings compatible with large hiatal hernia. Head/Neck CTA 09/27/23 09:38 IMPRESSION: 1. No significant ICA stenosis bilaterally. 2. No evidence of proximal flow-limiting intracranial stenosis. 3. Slightly ectatic basilar artery measuring 5 mm. 4. Chronic infarcts described on the head CT from earlier today. Abdomen/Pelvis CT 09/27/23 12:54 IMPRESSION: 1. Atrophic LEFT kidney is new from previous. No hydronephrosis in the RIGHT kidney. 2. Bulky fibroid uterus progressed compared to previous 3. Large esophageal hernia with partial intrathoracic stomach. 4. Small bilateral pleural effusions. Head CT 09/28/23 06:00 IMPRESSION: 1. No acute intracranial abnormality. 2. Atrophy, chronic microvascular ischemic changes and small chronic bilateral occipital lobe infarcts Echocardiogram: CONCLUSIONS LV systolic function is normal with EF of 60-65% Grade 1 diastolic dysfunction Mild mitral regurgitation Mild tricuspid regurgitation Compared to prior echocardiogram from 2016, no significant changes are seen. Guille Pollock MD (Electronically Signed) Final Date: 28 September 2023 Laboratory Results WBC 7.07 10^3/uL (3.29-11.43) 09/27/23: RBC 4.09 10^6/uL (3.85-5.65) 09/27/23 09: Hgb 11.90 g/dL (11.27-16.99) 09/27/23: Hct 37.7 % (36-47) 09/27/23: MCV 92.2 fl (85-98) 09/27/23: MCH 29.1 pg (27-33) 09/27/23: MCHC 31.6 g/dL (30-55) 09/27/23: RDW 16.1 % (12.1-15.1) H 09/27/23: Plt Count 268 10^3/cmm (157-399) 09/27/23: MPV 9.2 fL (7.4-10.4) 09/27/23: Neut % (Auto) 83.3 % 09/27/23: Lymph % (Auto) 9.5 % 09/27/23: [place] % (Auto) 5.8 % 09/27/23: Eos % (Auto) 0.4 % 09/27/23: Baso % (Auto) 0.6 % 09/27/23: Neut # (Auto) 5.89 10^3/uL (1.8-7.7) 09/27/23: Lymph # (Auto) 0.7 10^3/uL (0.8-4.8) L 09/27/23: [place] # (Auto) 0.4 10^3/uL (0.2-0.9) 09/27/23: Eos # (Auto) 0.0 10^3/uL (0.0-0.8) 09/27/23: Baso # (Auto) 0.0 10^3/uL (0.0-0.1) 09/27/23: Nucleated RBC % (auto) 0 % 09/27/23: Nucleated RBCs # 0.0 /100WBC 09/27/23: PT 16.00 SECONDS (12.1-14.9) H 09/27/23 09:27 INR 1.24 (0.8-1.2) H 09/27/23 09:27 APTT 27.1 SECONDS (23.9-36.7) 09/27/23 09:27 Sodium 142 mmol/L (136-145) 09/27/23 09:27 Potassium 4.3 mmol/L (3.5-5.1) 09/27/23 09:27 Chloride 103 mmol/L (98-107) 09/27/23 09:27 Carbon Dioxide 26 mmol/L (22-29) 09/27/23 09:27 Anion Gap 17.3 (5-19) 09/27/23 09:27 BUN 27 mg/dL (8-23) H 09/27/23 09:27 Creatinine 0.8 mg/dL (0.5-0.9) 09/27/23 09:27 GFR Calculation Not Reportable 09/27/23 09:27 Glucose 166 mg/dL (65-115) H 09/27/23 09:27 POC Glucose 184 mg/dL (70-110) H 09/27/23 09:37 Estimat Average Glucose 88 09/28/23 04:03 Hemoglobin A1c 4.7 % (4.0-6.0) 09/28/23 04:03 Calculated Osmolality 303 mOsm/kg (285-295) H 09/27/23 09:27 Calcium 8.8 mg/dL (8.5-10.5) 09/27/23 09:27 Total Bilirubin 0.3 mg/dL (0.15-1.2) 09/27/23 09:27 AST 16 U/L (0-32) 09/27/23 09:27 ALT 14 U/L (0-33) 09/27/23 09:27 Alkaline Phosphatase 106 U/L (35-105) H 09/27/23 09:27 Total Protein 6.1 g/dL (6.6-8.7) L 09/27/23 09:27 Albumin 3.4 g/dL (3.5-5.2) L 09/27/23 09:27 Globulin 2.7 g/dL (1.3-4.6) 09/27/23 09:27 Triglycerides 165 mg/dL (0-150) H 09/28/23 04:03 Cholesterol 178 mg/dL (0-200) 09/28/23 04:03 LDL Cholesterol, Calc 103 mg/dL (50-129) 09/28/23 04:03 HDL Cholesterol 42 mg/dL (60-100) L 09/28/23 04:03 LDL/HDL Ratio 2.45 RATIO (0.00-3.22) 09/28/23 04:03 Cholesterol/HDL Ratio 4.24 mg/dL (0.0-4.40) 09/28/23 04:03 Urine Color Yellow (Yellow) 09/27/23 11:50 Urine Appearance Clear (CLEAR) 09/27/23 11:50 Urine pH 8 (5-7) H 09/27/23 11:50 Ur Specific [place] 1.010 (1.005-1.030) 09/27/23 11:50 Urine Protein Trace (Negative) 09/27/23 11:50 Urine Glucose (UA) Norm (Normal) 09/27/23 11:50 Urine Ketones Negative (Negative) 09/27/23 11:50 Urine Blood 3+ (Negative) H 09/27/23 11:50 Urine Nitrate Negative (Negative) 09/27/23 11:50 Urine Bilirubin Neg (Negative) 09/27/23 11:50 Prot Sulfosalicylic Acd Negative (Negative) 09/27/23 11:50 Urine Urobilinogen Norm mg/dL (Negative) 09/27/23 11:50 Ur Leukocyte Esterase Negative (Negative) 09/27/23 11:50 Urine RBC 15-25 /hpf (0-2) H 09/27/23 11:50 Urine WBC 0-4 /hpf (0-5) H 09/27/23 11:50 Ur Squamous Epith Cells Rare /hpf (0-5) 09/27/23 11:50 Amorphous Sediment Not Reportable 09/27/23 11:50 Urine Bacteria 1+ /hpf (NONE) H 09/27/23 11:50 Urine Opiates Screen Positive ng/mL (Negative) H 09/27/23 11:50 Ur Barbiturates Screen Negative ng/mL (Negative) 09/27/23 11:50 Ur Phencyclidine Scrn Negative ng/mL (Negative) 09/27/23 11:50 Ur Amphetamines Screen Negative ng/mL (Negative) 09/27/23 11:50 U Benzodiazepines Scrn Negative ng/mL (Negative) 09/27/23 11:50 Urine Cocaine Screen Negative ng/mL (Negative) 09/27/23 11:50 U Marijuana (THC) Screen Negative ng/mL (Negative) 09/27/23 11:50 Vitals Last Vital Signs Temp 98.0 F 09/28/23 07:26 Pulse 68 09/28/23 07:26 Resp 16 09/28/23 07:26 BP 117/62 09/28/23 07:26 Pulse Ox 98 09/28/23 07:26 O2 Del Method Room Air 09/28/23 07:26 Discharge Plan Discharge Patient Disposition: Home Condition: Stable Prescriptions: New aspirin 81 mg capsule 81 mg PO DAILY Qty: 30 0RF gemfibrozil 600 mg tablet 600 mg PO BID Qty: 60 0RF Continued [id number] 600 mg calcium- 800 unit-50 mg tablet 1 tab PO DAILY glucosamine-chondroitin 900 mg tablet 900 mg PO QAM multivitamin Tablet 1 tab PO DAILY cholecalciferol (vitamin D3) 25 mcg (1,000 unit) capsule 25 mcg PO DAILY carvedilol 6.25 mg tablet 6.25 mg PO BID Qty: 180 1RF Rx Instructions: must administer with a meal/food amlodipine 5 mg tablet 5 mg PO DAILY Qty: 90 1RF Rx Instructions: ALONG WITH 2.5MG TO=7.5MG DAILY enalapril maleate 10 mg tablet 10 mg PO BID Qty: 180 1RF acetaminophen 325 mg Tablet 650 mg PO Q4H PRN (Reason: Pain) magnesium hydroxide [Milk of Magnesia] 400 mg/5 mL Suspension 30 ml PO DAILY PRN (Reason: Constipation) bisacodyl [Dulcolax (bisacodyl)] 10 mg Suppository 10 mg NE DAILY PRN (Reason: Constipation) Fleet Enema 19-7 gram/118 mL Enema 118 ml NE DAILY PRN (Reason: Constipation) Eliquis 5 mg Tablet 5 mg PO BID hydrocodone-acetaminophen 5-325 mg Tablet 1 tab PO Q4H PRN (Reason: Pain) Vitamin B-1 100 mg Tablet 100 mg PO DAILY tramadol 50 mg tablet 50 mg PO Q4H PRN (Reason: Pain) sertraline 25 mg Tablet 25 mg PO BEDTIME Miralax 17 gram/dose Powder See Rx Instructions .ROUTE .COMPLEX Rx Instructions: MIX 1 CAPFUL (17 g) IN 8 OUNCES LIQUID AND DRINK ENTIRE LIQUID DAILY NEEDED FOR CONSTIPATION. amino acids-protein hydrolys 15-101 gram-kcal/30 mL Liquid 1 ea PO DAILY camphor-menthol 0.2-3.5 % Gel 1 applic TOPICAL DAILY PRN (Reason: Pain) Rx Instructions: rub in gently and completely Discontinued amlodipine 2.5 mg tablet 2.5 mg PO DAILY Qty: 90 1RF Rx Instructions: ALONG WITH 5 MG TABLET TO=7.5MG Discharge Orders: Discharge Order (Routine); Ordered 09/28/23 Ordered By: Duncan Villagomez Referrals: Daquan Bowman MD [Physician] - 2 weeks (We have notified your physician's clinic of the need for a follow-up appointment to be scheduled. If you have not heard from them within the next 2 business days, please call them directly. ) Anabelle Hernandes DO [Primary Care Provider] - 10/07/23 2:00 pm Discharge Diet: Usual diet Discharge Activity: Resume usual activity and Increase activity as tolerated Patient Instructions: Gemfibrozil (By mouth), Aspirin (By mouth), Opioid Safety Discharge Attestations Time Spent in Discharge Care*: greater than 30 min Specific Discharge Activities: educating patient, discussing with pcp/other providers, discussing with case packer and sealer/social workers/dc planners, documenting/other paperwork and evaluating patient/reviewing data Status at Discharge: Cognitive status at discharge: mildly impaired cognition, Behavioral status at discharge: cooperative, Functional status at discharge: other assisted ambulation, Overall status at discharge: patient is back to baseline Quality Metrics Clinical Quality Measures [ Cerebrovascular Accident { Contraindication to Antithrombotic: Medical contraindication; Contraindication to Anticoagulation: None; anticoagulation prescribed; Contraindication to Statin: Drug declined by patient; Contraindication to tPA: Treatment not indicated;}] Coding Level of Care Code 48954 Total time (in minutes) for Discharge: 50 Diagnoses Acute right MCA stroke I63.511 Benign essential HTN I10 Stage 3a chronic kidney disease N18.31 Chronic kidney disease stage 3 subtype: stage 3a (GFR 45-59) History of below-knee amputation of left lower extremity Z89.512 Laterality: left Chronic anticoagulation Z79.01 Current moderate episode of major depressive disorder, unspecified whether recurrent F32.1 Active/Remission status: currently active Depression Type: major depressive disorder Major depression episode severity: moderate Major depression recurrence: unspecified whether recurrent Pressure injury of right heel, stage 2 L89.612 Statin medication declined by patient Z53.20
[2023-09-28 11:18] VITALS: BP 112/71; PULSE 69; RESP 16; TEMP 36.5; O2SAT 99
--- NOTE | 2023-09-28 12:52 | PC.NURSE ---
Called report to [facility] and spoke to Kim. All questions answered. [facility] to transport. IV's removed 2x2 and coban applied. Patient tolerated well. Discharge packet to be given to the retirement employee and medications reviewed with patient. Sent to SNF pharmacy.
--- NOTE | 2023-09-28 13:22 | PC.OT ---
OT EVALUATION ORDERS RECEIVED. PATIENT SCHEDULED FOR D/C
[2023-09-28 13:32] LABS: SARS Covid-2 Antigen Negative (Negative)
[2023-09-28 14:15] VITALS: BP 112/71; PULSE 69; RESP 16; TEMP 36.5; O2SAT 99
== END 2023-09-28 13:00 | disposition home or self-care (01) ==
LOC: ER 14:11 → MEDSURG 15:28
PROVIDERS: Admitting Provider Hospitalist; Emergency Provider Family Medicine; PCP Family Medicine; Visit Provider Student in an Organized Health Care Education/Training Program
DX: I63.511 Cerebral infarction due to unspecified occlusion or stenosis of right middle cerebral artery (principal); R29.703 NIHSS score 3; I12.9 Hypertensive chronic kidney disease with stage 1 through stage 4 chronic kidney disease, or unspecified chronic kidney disease; N18.31 Chronic kidney disease, stage 3a; Z89.512 Acquired absence of left leg below knee; Z79.01 Long term (current) use of anticoagulants; F32.1 Major depressive disorder, single episode, moderate; L89.612 Pressure ulcer of right heel, stage 2; Z53.20 Procedure and treatment not carried out because of patient's decision for unspecified reasons; Z86.73 Personal history of transient ischemic attack (TIA), and cerebral infarction without residual deficits
CPT/HCPCS: 36415; 36416; 70450; 70496; 70498; 71045; 74176; 80053; 80061; 80306; 81001; 82962; 83036; 85025; 85610; 85730; 87086; 87426; 92507; 92523; 92526; 92610; 93005; 93306; 96360; 99285; G0378; J7030; Q9967

== ENCOUNTER 2023-11-25 09:35 | Inpatient (IN) | payer MEDICARE, SELFPAY ==
[2023-11-25] VITALS (47 sets, daily range): BP systolic 130–184; BP diastolic 69–157; PULSE 75–122; RESP 15–35; TEMP 36.6–36.9; O2SAT 93–100; BMI 25.4
--- NOTE | 2023-11-25 09:39 | CT_ITS ---
WS: [id number] CT HEAD NONCONTRAST HISTORY: ACUTE SYMPTOMS OF STROKE TECHNIQUE: Contiguous axial imaging performed through the brain in 2.5 mm imaging. Bone and soft tiss ue windows. Sagittal and coronal reformats reviewed. All CT scans at [facility] use at least one of these dose optimization techniques: automated exposure control; mA and/or kV adjustment per pa tient size (includes targeted exams where dose is matched to clinical indication); or iterative recon struction. DLP: 642.78 mGy COMPARISON: 09/28/2023 No acute intracranial hemorrhage, midline shift or mass effect. Moderate volume loss. There is extensive decreased attenuation in the white matter from chronic disea se. Prior infarct in the posterior parietal-occipital lobes, RIGHT greater than LEFT. There is extens severo supratentorial low-attenuation from chronic white matter disease. No new infarct is identified. Ventricles: Ventricles are mildly prominent on the basis of atrophy. Paranasal sinuses: As visualized are clear. Mastoid air cells: Small amount of fluid in the mastoid air cells bilaterally. Amount of fluid has in creased since 09/28/2023. Calvarium and scalp: Skull is intact with no soft tissue edema or swelling. CT/CT head thrombolytic [id number] IMPRESSION: 1. No acute intracranial hemorrhage or edema. 2. Extensive bilateral small vessel disease and prior posterior RIGHT occipita l lobe infarcts. 3. Increasing bilateral fluid in the mastoid air cells. Notified Meño Bauman DO at 11/25/2023 9:50 AM.
--- NOTE | 2023-11-25 09:47 | ECG_ITS ---
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 Measurements Intervals [place] Rate: 95 P: 52 OR: 138 QRS: 67 QRSD: 76 T: 1 QT: 347 QTc: 437 Interpretive Statements SINUS RHYTHM WITH FREQUENT SUPRAVENTRICULAR PREMATURE COMPLEXES Compared to ECG 09/27/2023 09:45:28 No significant changes Electronically Signed On 11-25-2023 9:59:23 CDT by Guille Pollock M.D. [email or web address]
--- NOTE | 2023-11-25 09:47 | XRR_ITS ---
PROCEDURE INFORMATION: Exam: XR Chest Exam date and time: 11/25/2023 10:00 AM Age: 78 years old Clinical indication: Stroke alert TECHNIQUE: Imaging protocol: Radiologic exam of the chest. Views: 1 view. COMPARISON: CR XR chest 1V portable [id number] 09/27/2023 9:46 AM FINDINGS: Lungs: Bibasilar atelectasis and/or scarring. Poor inspiration. Decreased lung volumes. Pleural spaces: No pleural effusion or pneumothorax. Heart/Mediastinum: The cardiac silhouette is not enlarged. Mitral annular calcification. The superior mediastinal contours are within normal limits. Large hiatal hernia. Bones/joints: There are multilevel bridging osteophytes in the spine. Bilateral glenohumeral joint osteoarthritis. Partially visualized curvature lumbar spine convex to the right. XR/XR chest 1V portable [id number] IMPRESSION: 1. Poor inspiration. Bibasilar atelectasis and/or scarring. 2. Large hiatal hernia.
--- NOTE | 2023-11-25 09:47 | CT_ITS ---
WS: [id number] CT ANGIOGRAM CEREBRAL AND CAROTID ARTERIES HISTORY: acute CVA TECHNIQUE: CT angiogram is performed of the carotid and cerebral arteries. During arterial injection imaging is obtained from the skull vertex to the aortic arch in 1.25 mm imaging. Coronal and sagittal reformats are submitted. Additional multi planar reformats of the carotid and cerebral arteries are submitted, MIP imaging also reviewed. NASCET criteria utilized. [facility] at least one of these dose optimization techniques: automated exposure control; mA and/or kV adjust ment per patient size (includes targeted exams where dose is matched to clinical indication); or iter ative reconstruction. CONTRAST: Omnipaque 350; 100 mL IV. DLP: 411.42 mGy.cm COMPARISON: None available. Carotid Angiogram: Right carotid: Common carotid artery: Arises normally from the innominate artery. No significant plaque or stenosis. Internal carotid artery: No plaque or stenosis. External carotid artery: Patent. Left carotid: Common carotid artery: Arises normally from the aorta. No significant plaque or stenosis. Internal carotid artery: No plaque or stenosis. External carotid artery: Patent. Right vertebral artery: Unremarkable. Left vertebral artery: Unremarkable. Arises normally from the subclavian artery. Subclavian arteries: No stenosis or significant abnormality. Upper thorax: Small layering bilateral pleural effusions. Large hiatal hernia. Thyroid gland: Subcentimeter LEFT thyroid nodules. Osseous structures: Moderate cervical spondylosis. Degenerative disc disease throughout the cervical spine. CEREBRAL ANGIOGRAM: Intracranial vertebral arteries: Normal with no significant atherosclerosis. Basilar artery: No significant stenosis or occlusion. No aneurysm. Intracranial Internal carotid arteries: Calcified plaque in the cavernous carotid arteries. Slightly greater plaque on the LEFT approaching 60%. No occlusion. Middle cerebral arteries: Normal. Anterior cerebral arteries and ACOM: Normal. Posterior cerebral arteries and PCOM's: Posterior cerebral arteries are patent. Absent or hypoplastic LEFT posterior communicating artery. The RIGHT posterior communicating artery is normal. Dural venous sinuses are normally enhancing. Mastoid air cells: Fluid in the mastoid air cells bilaterally. Paranasal sinuses: Mild mucoperiosteal thickening. No air-fluid levels. Calvarium: Normal. CT/CT angio headneck* [id number] IMPRESSION: 1. No cervical carotid artery stenosis. 2. Moderate plaque in the intracranial cavernous carotid arteries with a LEFT approaching 60% stenosis. 3. No aneurysms or occlusions or thrombus in the [place]. 4. Small bilateral pleural effusions. 5. Large hiatal hernia. 6. Unremarkable [place].
--- NOTE | 2023-11-25 09:47 | W.ED.NEUROSD ---
HPI - Neuro Symptoms/Deficit General: Chief Complaint: Neuro Symptoms/Deficit Stated Complaint: stroke Time Seen by Provider: 11/25/23 09:36 History of Present Illness: 78-year-old female who presents to the emergency room via EMS as a stroke alert as her last known well was approximately 9 AM. Patient is on anticoagulation. Patient had a right MCA stroke on September 26 was admitted at that time. CTA of the head and neck at that time did not show any significant occlusion. Today she was with staff around 9 and suddenly began to have right-sided weakness they also noticed some right facial droop the facial droop seems to be resolved she has significant word salad on arrival here is not able to participate in any history but does attempt to answer questions his answers are nonsensical. She attempts to follow some commands but not all. Overall her initial NIH score is 18. She is on oral anticoagulation. According to the residential report via EMS she is normally alert and oriented answers questions appropriately and conversant. 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 Done due to ischemic limb from arterial and venous thrombosis LLE. [facility] in [place]. Started on eliquis postoperatively. Family History Other CAD (coronary artery disease) Dementia Hypertension Denies family history of Diabetes Clotting disorder Hyperlipidemia Psychiatric illness Chronic kidney disease (CKD) Suicide Anesthesia complication Bleeding disorder Family history of premature coronary artery disease Lung disease Cancer Stroke Social History Smoking and tobacco/nicotine status: never used tobacco/nicotine Alcohol intake: current Alcohol intake frequency: 0-2 Drinks per Day Substance/Drug Use: never Adopted: No Caregiver/support person: No Lives independently: No Housing: Group Home NIH stroke score NIHSS: Level Of Consciousness - 1a: 3 Level Of Consciousness Questions - 1b: Neither Correct Level Of Consciousness Commands - 1c: One Correct Best Gaze - 2: Normal Visual [place] - 3: No Visual Loss Facial Palsy - 4: Normal Motor Arm Right - 5: No Effort Against [place] Motor Arm Left - 5: No Drift Motor Leg Right - 6: No Effort Against [place] Motor Leg Left - 6: No Drift Limb Ataxia - 7: Present In Two Limbs Sensory - 8: Mild To Moderate Loss Best Language - 9: No Aphasia Dysarthia - 10: Mild/Moderate Dysarthia Extinction And Inattention - 11: 2 Score: Total Score: 18 Physical Exam Const: COMMON NORMALS: no acute distress GENERAL APPEARANCE: cooperative and comfortable ORIENTATION/CONSCIOUSNESS: Yes awake HENMT: COMMON NORMALS: normocephalic, atraumatic and hearing grossly normal bilaterally HEAD & SCALP: normocephalic and atraumatic Resp: COMMON NORMALS: normal respiratory effort, No retractions, No use of accessory muscles and clear to auscultation bilaterally AUSCULTATION: clear to auscultation bilaterally Cardio: COMMON NORMALS: regular rate, regular rhythm and No murmurs present (Cardio) RATE: regular rate RHYTHM: regular rhythm GI: COMMON NORMALS: Soft to palpation and No hepatosplenomegaly present AUSCULTATION: Yes normoactive bowel sounds PALPATION: Yes Soft to palpation, No Tenderness to palpation present (GI), No Guarding due to palpation present (GI) and Yes No hepatosplenomegaly present Extremity: COMMON NORMALS: normal to inspection, capillary refill normal, no clubbing, cyanosis or edema, no calf tenderness and no pedal edema Skin: COMMON NORMALS: no rashes or lesions noted GENERAL SKIN EXAM: no rashes or lesions noted Course Vital Signs: Vital signs: Vital Signs Temperature 97.9 F 11/25/23 15:41 Pulse Rate 79 11/25/23 15:41 Respiratory Rate 18 11/25/23 15:41 Blood Pressure 151/91 11/25/23 15:41 Pulse Oximetry 95 11/25/23 15:41 Oxygen Delivery Me thod Room Air 11/25/23 15:41 MDM - Neuro Symptoms/Deficit Medical Decision Making Due to her oral anticoagulant she is not a candidate for thrombolytics. There is no sign of embolism. Will admit to the hospitalist orders written discussed with hospitalist. Lab Data 11/25/23 09:52 11/25/23 09:[address] 11/25/23 09:39 IMPRESSION: 1. No acute intracranial hemorrhage or edema. 2. Extensive bilateral small vessel disease and prior posterior RIGHT occipital lobe infarcts. 3. Increasing bilateral fluid in the mastoid air cells. Notified Meño Bauman DO at 11/25/2023 9:50 AM. Chest X-Ray 11/25/23 09:47 IMPRESSION: 1. Poor inspiration. Bibasilar atelectasis and/or scarring. 2. Large hiatal hernia. Head/Neck CTA 11/25/23 09:47 IMPRESSION: 1. No cervical carotid artery stenosis. 2. Moderate plaque in the intracranial cavernous carotid arteries with a LEFT approaching 60% stenosis. 3. No aneurysms or occlusions or thrombus in the [place]. 4. Small bilateral pleural effusions. 5. Large hiatal hernia. 6. Unremarkable [place]. Laboratory Results WBC 8.18 10^3/uL (3.29-11.43) 11/25/23 09:52 RBC 4.15 10^6/uL (3.85-5.65) 11/25/23 09:52 Hgb 11.20 g/dL (11.27-16.99) L 11/25/23 09:52 Hct 36.1 % (36-47) 11/25/23 09:52 MCV 87.0 fl (85-98) 11/25/23 09:52 MCH 27.0 pg (27-33) 11/25/23 09:52 MCHC 31.0 g/dL (30-55) 11/25/23 09:52 RDW 15.2 % (12.1-15.1) H 11/25/23 09:52 Plt Count 269 10^3/cmm (157-399) 11/25/23 09:52 MPV 9.0 fL (7.4-10.4) 11/25/23 09:52 Neut % (Auto) 79.5 % 11/25/23 09:52 Lymph % (Auto) 12.2 % 11/25/23 09:52 [place] % (Auto) 6.1 % 11/25/23 09:52 Eos % (Auto) 1.2 % 11/25/23 09:52 Baso % (Auto) 0.6 % 11/25/23 09:52 Neut # (Auto) 6.50 10^3/uL (1.8-7.7) 11/25/23 09:52 Lymph # (Auto) 1.0 10^3/uL (0.8-4.8) 11/25/23 09:52 [place] # (Auto) 0.5 10^3/uL (0.2-0.9) 11/25/23 09:52 Eos # (Auto) 0.1 10^3/uL (0.0-0.8) 11/25/23 09:52 Baso # (Auto) 0.1 10^3/uL (0.0-0.1) 11/25/23 09:52 Nucleated RBC % (auto) 0 % 11/25/23 09:52 Nucleated RBCs # 0.0 /100WBC 11/25/23 09:52 PT 17.80 SECONDS (12.1-14.9) H 11/25/23 09:52 INR 1.41 (0.8-1.2) H 11/25/23 09:52 APTT 29.5 SECONDS (23.9-36.7) 11/25/23 09:52 Sodium 140 mmol/L (136-145) 11/25/23 09:52 Potassium 4.0 mmol/L (3.5-5.1) 11/25/23 09:52 Chloride 103 mmol/L (98-107) 11/25/23 09:52 Carbon Dioxide 26 mmol/L (22-29) 11/25/23 09:52 Anion Gap 15.0 (5-19) 11/25/23 09:52 BUN 24 mg/dL (8-23) H 11/25/23 09:52 Creatinine 0.9 mg/dL (0.5-0.9) 11/25/23 09:52 GFR Calculation Not Reportable 11/25/23 09:52 Glucose 168 mg/dL (65-115) H 11/25/23 09:52 POC Glucose 169 mg/dL (70-110) H 11/25/23 09:43 Calculated Osmolality 298 mOsm/kg (285-295) H 11/25/23 09:52 Calcium 9.1 mg/dL (8.5-10.5) 11/25/23 09:52 Total Bilirubin 0.2 mg/dL (0.15-1.2) 11/25/23 09:52 AST 12 U/L (0-32) 11/25/23 09:52 ALT 13 U/L (0-33) 11/25/23 09:52 Alkaline Phosphatase 103 U/L (35-105) 11/25/23 09:52 Total Protein 7.1 g/dL (6.6-8.7) 11/25/23 09:52 Albumin 3.3 g/dL (3.5-5.2) L 11/25/23 09:52 Globulin 3.8 g/dL (1.3-4.6) 11/25/23 09:52 Homocysteine 12.23 umol/l (0-15) 11/25/23 09:52 TSH 1.18 uIU/mL (0.27-4.20) 11/25/23 09:52 All radiology interpretation(s) finalized by discharge Discharge Plan Discharge Patient Disposition: Admitted As Inpatient Admit Provider: Keron Muir Clinical Impression: CVA (cerebral vascular accident), Kidney disease, chronic, stage III (GFR 30-59 ml/min), Chronic anticoagulation, Carotid artery disease Condition: Stable Coding Level of Care Code ED [employer] for Bianca Ashley
[2023-11-25 09:53] LABS: Glucose Point of Care 169 mg/dL (70-110)
[2023-11-25 10:10] LABS: Basophils # 0.1 10^3/uL (0.0-0.1); Basophils % 0.6 %; Eosinophils # 0.1 10^3/uL (0.0-0.8); Eosinophils % 1.2 %; Hematocrit 36.1 % (36-47); Lymphocytes % 12.2 %; Monocytes # 0.5 10^3/uL (0.2-0.9); Monocytes % 6.1 %; Neutrophils % 79.5 %; Nucleated Red Blood Cells % 0 %; Platelet Count 269 10^3/cmm (157-399); Red Blood Count 4.15 10^6/uL (3.85-5.65); Red Cell Distribution Width 15.2 % (12.1-15.1); White Blood Count 8.18 10^3/uL (3.29-11.43)
[2023-11-25 10:22] LABS: Alanine Aminotransferase 13 U/L (0-33); Albumin Level 3.3 g/dL (3.5-5.2); Alkaline Phosphatase 103 U/L (35-105); Aspartate Amino Transferase 12 U/L (0-32); Blood Urea Nitrogen 24 mg/dL (8-23); Calcium 9.1 mg/dL (8.5-10.5); Carbon Dioxide 26 mmol/L (22-29); Chloride 103 mmol/L (98-107); Creatinine Clr Calc Pharmacy 42.8334; Globulin 3.8 g/dL (1.3-4.6); Glucose 168 mg/dL (65-115); Osmolality Calculated 298 mOsm/kg (285-295); Sodium 140 mmol/L (136-145); Total Bilirubin 0.2 mg/dL (0.15-1.2); Total Protein 7.1 g/dL (6.6-8.7)
[2023-11-25] MEDS: iohexol 350 mg/mL 500 mL Btl (per mL) IV (10:29)
--- NOTE | 2023-11-25 10:57 | PC.PHAR ---
ZOZY SEVERINO AT [facility] PT HAS BEEN TAKEN OFF SEVERAL MEDICATIONS. THEY ARE FOLLOWS: AMLODIPINE 5MG DAILY, CARVEDILOL 6.25 TWICE DAILY, GEMFIBROZIL 600MG TWICE DAILY, SERTRALINE 25MG AT BEDTIME, TRAMADOL 50MG EVERY 4 HOURS NEEDED. REMOVED FROM MED LIST.
[2023-11-25 11:00] LABS: INR 1.41 (0.8-1.2)
[2023-11-25 11:01] LABS: Partial Thromboplastin Time 29.5 SECONDS (23.9-36.7)
--- NOTE | 2023-11-25 12:14 | P.HP_ITS ---
Providers/Chief Complaint 2 Admitting Physician: Keron Muir MD Primary Care Provider: Anabelle Hernandes DO Chief Complaint: stroke History of Present Illness Britany Alvarenga is a 78 year old female presenting to the hospital from [facility] with acute onset of right facial droop, and dense right hemiparesis at 850 5 in the morning while being assessed by nurse. She denied any pain, but was having difficulty saying the words that she wanted, with the above deficits. She had had a recent hospitalization in September for stroke causing left hemiparesis. 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 currently she denies any headache, nausea, chest discomfort. She is concerned that she has had another stroke. She reports no recent illness. Review of Systems 2 General: Reports: 10 or more systems reviewed and unremarkable except in HPI and below Card: Denies: chest pain Resp: Denies: dyspnea GI: Denies: abdominal pain, hematochezia or melena Medications/Allergies Home Medications Medication Instructions Recorded Confirmed Last Taken Type enalapril maleate 10 mg tablet 10 mg PO BID #180 tabs 05/11/23 11/25/23 11/25/23 Rx acetaminophen 325 mg tablet 650 mg PO Q4H PRN Pain 08/19/23 11/25/23 Unknown History apixaban 5 mg tablet (Eliquis) 5 mg PO BID 08/19/23 11/25/23 11/25/23 History bisacodyl 10 mg rectal suppository 10 mg MA DAILY PRN Constipation 08/19/23 11/25/23 Unknown History (Dulcolax (bisacodyl)) magnesium hydroxide 400 mg/5 mL 30 ml PO DAILY PRN Constipation 08/19/23 11/25/23 Unknown History oral suspension (Milk of Magnesia) sodium phosphates 19 gram-7 118 ml MA DAILY PRN Constipation 08/19/23 11/25/23 Unknown History gram/118 mL enema (Fleet Enema) amino acids-protein hydrolysate 15 1 ea PO DAILY 09/27/23 11/25/23 Unknown History gram-101 kcal/30 mL oral liquid camphor-menthol 0.2 %-3.5 % 1 applic topical DAILY PRN Pain 09/27/23 11/25/23 Unknown History topical gel hydrocodone 5 mg-acetaminophen 325 1 tab PO Q4H PRN Pain 09/27/23 11/25/23 Unknown History mg tablet polyethylene glycol 3350 17 See Rx Instructions .Route .COMPLEX 09/27/23 11/25/23 Unknown History gram/dose oral powder (Miralax) aspirin 81 mg capsule 81 mg PO DAILY #30 caps 09/28/23 11/25/23 11/25/23 Rx dextran 70-hypromellose eye drops 1 drp ophthalmic (eye) BID PRN Dry 11/25/23 11/25/23 Unknown History in a dropperette (Artificial Tears Eyes (PF) drops in a dropperette) lactobacillus combination no.4 3 3,000 mmu cells PO DAILY PRN WHILE 11/25/23 11/25/23 Unknown History billion cell capsule (Probiotic) ON ANTIBIOTICS Allergies Allergy/AdvReac Type Severity Reaction Status Date / Time No Known Allergies Allergy Verified 08/02/23 18:55 PFSH Acute 2 PFSH: Medical History (Updated 11/25/23 @ 12:29 by Keron Muir MD) CVA (cerebral vascular accident) Hiatal hernia noted on CT imaging, with partial intrathoracic stomach 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 Done due to ischemic limb from arterial and venous thrombosis L[facility]. [facility] in [place]. Started on eliquis postoperatively. Family History Other CAD (coronary artery disease) Dementia Hypertension Denies family history of Diabetes Clotting disorder Hyperlipidemia Psychiatric illness Chronic kidney disease (CKD) Suicide Anesthesia complication Bleeding disorder Family history of premature coronary artery disease Lung disease Cancer Stroke Social History Smoking and tobacco/nicotine status: never used tobacco/nicotine Alcohol intake: current Alcohol intake frequency: 0-2 Drinks per Day Substance/Drug Use: never Adopted: No Caregiver/support person: No Lives independently: No Housing: [facility] Vitals/I&O/Wt Last Vital Signs Temp 98.1 F 11/25/23 09:37 Pulse 95 11/25/23 11:40 Resp 20 H 11/25/23 11:40 BP 147/70 11/25/23 11:40 Pulse Ox 100 11/25/23 11:20 O2 Del Method Room Air 11/25/23 09:37 Weight last 48 hrs Weight 53.07 kg Physical Exam 2 Narrative: General exam is a white female, with slurred speech and right facial droop. Initial NIH score 18. Not a candidate for tPA as she is on chronic anticoagulation and no thrombus noted therefore not a candidate for thrombectomy. HEENT: Atraumatic normocephalic. Oropharynx with midline tongue. Bedside swallowing of liquid without obvious coughing, but some difficulty with swallowing and [place] therefore will defer any further testing to speech therapy. Neck is supple no lymphadenopathy thyromegaly Cardiovascular regular rate and rhythm without murmur Lungs clear Abdomen is soft nontender positive bowel sounds Extremities no cyanosis clubbing. Cap refill less than 2 seconds. Left [id number] amputation noted. Skin no rash Neuro: Left upper extremity weakness noted. Right upper and right lower extremity weakness noted as well but some strength is present in the ability to wiggle toes and open hand. From my understanding this is improved from dense hemiparesis when the event occurred. Right facial droop is noted and certainly slurred speech. Please note NIHSS score of 18 by emergency department physician on arrival. Data 11/25/23 09:52 11/25/23 09:52 Other Labs: INR 1.41 Recent hemoglobin A1c normal LFTs normal Albumin 3.3, calcium 9.1 Urinalysis to be obtained TSH will be obtained Head and neck CTA demonstrated large hiatal hernia, small bilateral effusions, moderate plaque left approaching 60% Chest x-ray by my read no obvious acute changes or infiltrate, atherosclerotic disease Head CT reviewed by me as well no hemorrhage. Previous infarcts occipital lobes on the right EKG reviewed by me demonstrates sinus rhythm, few premature atrial contractions, normal axis. A&P Assessment and plan (1) CVA (cerebral vascular accident): Patient presenting with CVA, and right hemiparesis. This appears to have improved some since presentation. Therapy consultations Hydration Fall precautions Telemetry She has had recent echocardiogram so this does not need to be repeated. On September 26 EF was 60 to 65% with 1/4 diastolic dysfunction with no change from 2016 CTA has already been done showing no thrombus. Narrowing of the intracranial carotid is noted to be approaching 60% on the left. Change aspirin to Plavix. She has a preponderance of vascular disease Continue Eliquis DVT prophylaxis will also be covered with Eliquis which I believe she was put on for arterial thrombus Permissive hypertension. Hold enalapril currently. Add statin. I will discuss with patient. Previously she has refused. If she still refuses, will hold on the addition. She does agree to take a statin currently. (2) Carotid artery disease: See notations above Add statin (3) History of arterial thrombosis: Continue Eliquis Referral to neurology regarding thrombotic disease workup. May need further testing. Plan Multiple other medical problems as outlined in past medical history Full code currently Eliquis will suffice for DVT prophylaxis Attempted to call brother, who helps with her making decisions. Left message on phone. Attestations 2 Medical Necessity Statement*: Will need greater than 2 midnight stay for evaluation and treatment of stroke with significant deficit of right hemiparesis, right facial droop, speech difficulty and likely some swallowing deficits. Diagnoses CVA (cerebral vascular accident) I63.9 Carotid artery disease I77.9 History of arterial thrombosis Z86.718 Time Spent (min) 53
[2023-11-25] MEDS: sodium chloride 0.9% 1,000 ML 75 ML IV (12:37)
[2023-11-25 13:20] LABS: Thyroid Stimulating Hormone 1.18 uIU/mL (0.27-4.20)
[2023-11-25 13:39] LABS: Homocysteine 12.23 umol/l (0-15)
[2023-11-25] MEDS: apixaban 5 mg Tablet PO (19:18)
--- NOTE | 2023-11-25 22:48 | PC.NURSE ---
pt attempts to speak but no solid words, able to follow lift left arm and place in front of her but unable to comprehend to touch nose even with visual aid. pt was able to swallow eliquis at 1900 with pudding, when time for atorvastatin, nurse gave pt spoon of extremely thick water but pt attempted to swallow but liquid remains on left side of the mouth, atorvastatin wasted. pt continue to attempt to communicate but staff unable to understand even instructing pt to answer questions with yes or no, pt continue to attempt to speak. no s/s of pain .
[2023-11-26] VITALS (14 sets, daily range): BP systolic 150–191; BP diastolic 70–97; PULSE 65–116; RESP 15–24; TEMP 36.6–37.7; O2SAT 93–99
[2023-11-26] MEDS: morphine 4 mg/mL SDV 1 mL 2 MG IVP ×4 (00:10→22:35)
[2023-11-26] MEDS: sodium chloride 0.9% 1,000 ML 75 ML IV ×2 (01:11→21:33)
[2023-11-26 04:46] LABS: Basophils # 0.1 10^3/uL (0.0-0.1); Basophils % 0.7 %; Eosinophils # 0.1 10^3/uL (0.0-0.8); Eosinophils % 1.3 %; Hematocrit 32.1 % (36-47); Lymphocytes # 0.9 10^3/uL (0.8-4.8); Lymphocytes % 13.4 %; Mean Corpuscular HGB Conc 30.8 g/dL (30-55); Mean Corpuscular Hemoglobin 26.8 pg (27-33); Mean Platelet Volume 8.8 fL (7.4-10.4); Monocytes # 0.5 10^3/uL (0.2-0.9); Monocytes % 7.7 %; Neutrophils # 5.24 10^3/uL (1.8-7.7); Neutrophils % 76.5 %; Nucleated Red Blood Cells % 0 %; Platelet Count 221 10^3/cmm (157-399); Red Blood Count 3.69 10^6/uL (3.85-5.65); Red Cell Distribution Width 15.1 % (12.1-15.1); White Blood Count 6.86 10^3/uL (3.29-11.43)
[2023-11-26 05:07] LABS: Anion Gap 14.1 (5-19); Blood Urea Nitrogen 19 mg/dL (8-23); Calcium 8.3 mg/dL (8.5-10.5); Carbon Dioxide 23 mmol/L (22-29); Chloride 107 mmol/L (98-107); Creatinine Clr Calc Pharmacy 52.5536; Glucose 104 mg/dL (65-115); Osmolality Calculated 293 mOsm/kg (285-295); Potassium 4.1 mmol/L (3.5-5.1); Sodium 140 mmol/L (136-145)
[2023-11-26 05:08] LABS: Chol HDL Ratio 4.17 mg/dL (0.0-4.40); Cholesterol 175 mg/dL (0-200); HDL Cholesterol 42 mg/dL (60-100); LDL Cholesterol Calculated 109 mg/dL (50-129); Triglycerides 119 mg/dL (0-150)
--- NOTE | 2023-11-26 07:47 | P.PN_ITS ---
Subjective 2 Subjective: Denies any pain. Significantly emotional and appears frustrated. Can follow directions, answer simple questions. She had morphine ordered for her through the night. She does take hydrocodone at the nursing facility. No nausea or vomiting. Medications: Reviewed: Yes Vitals/I&O/Wt Last Vital Signs Temp 97.8 F 11/26/23 07:34 Pulse 80 11/26/23 07:34 Resp 22 H 11/26/23 07:34 BP 191/97 11/26/23 07:34 Pulse Ox 95 11/26/23 07:34 O2 Del Method Room Air 11/26/23 07:34 11/25/23 11/26/23 11/26/23 22:59 06:59 14:59 Intake Total 0 / 0 942.5 / 942.5 Balance 0 / 0 942.5 / 942.5 Weight last 48 hrs Weight 66.848 kg Weight 65 kg Weight 53.07 kg Physical Exam 2 Narrative: General exam is a white female, with slurred speech and right facial droop. Speech is a little bit harder for me to understand today. Neck is supple no lymphadenopathy thyromegaly Cardiovascular regular rate and rhythm without murmur Lungs clear Abdomen is soft nontender positive bowel sounds Extremities no cyanosis clubbing. Cap refill less than 2 seconds. Left [id number] amputation noted. Skin no rash Neuro: Left upper extremity weakness noted. Right facial droop noted. I cannot get her to move her right upper or right lower extremity which is worse from yesterday. Data 11/26/23 04:39 11/26/23 04:39 A&P Assessment and plan (1) CVA (cerebral vascular accident): Patient presenting with CVA, and right hemiparesis. The hemiparesis is dense currently, and was less so on admission. Secondary to change will repeat CT noncontrast to make sure no hemorrhagic conversion has occurred as she is on anticoagulants and antiplatelets. Therapy consultations appreciated Continue hydration. P.o. status is in question. Currently still n.p.o. Fall precautions Telemetry She has had recent echocardiogram so this does not need to be repeated. On September 26 EF was 60 to 65% with 1/4 diastolic dysfunction with no change from 2016 CTA has already been done showing no thrombus. Narrowing of the intracranial carotid is noted to be approaching 60% on the left. Change aspirin to Plavix. She has a preponderance of vascular disease Continue Eliquis DVT prophylaxis will also be covered with Eliquis which I believe she was put on for arterial thrombus Permissive hypertension. Hold enalapril currently. Possible restart lower dose tomorrow 48 hours after CVA if blood pressure remains high. Continue statin. I will discuss with patient. Previously she has refused. If she still refuses, will hold on the addition. She does agree to take a statin currently. She was placed on morphine last night. Should use sparingly. Hydrocodone ordered if she is able to take p.o. this would be a better option as she had been on this intermittently at the nursing facility. Overall today patient's neurologic status is worse, warranting repeat CT. Patient with risk of clinical deterioration. (2) Carotid artery disease: See notations above Add statin (3) History of arterial thrombosis: Continue Eliquis Referral to neurology as outpatient regarding thrombotic disease workup. May need further testing. Homocystine level, antiphospholipid antibody panel have been ordered Plan Multiple other medical problems as outlined in past medical history Full code currently Eliquis will suffice for DVT prophylaxis I was able to contact brother yesterday to give an update. Attestations 2 Medical Necessity Statement*: Needs continued hospitalization secondary to severe CVA with right hemiparesis and difficulty with swallowing, cannot rule out need for PEG tube. Diagnoses CVA (cerebral vascular accident) I63.9 Carotid artery disease I77.9 History of arterial thrombosis Z86.718 Time Spent (min) 26
--- NOTE | 2023-11-26 07:50 | CTR_ITS ---
PROCEDURE INFORMATION: Exam: CT Head Without Contrast Exam date and time: 11/26/2023 8:02 AM Age: 78 years old Clinical indication: Altered mental status/memory loss; Additional info: Worsening neurologic status TECHNIQUE: Imaging protocol: Computed tomography of the head without contrast. Radiation optimization: All CT scans at this facility use at least one of these dose optimization techniques: automated exposure control; mA and/or kV adjustment per patient size (includes targeted exams where dose is matched to clinical indication); or iterative reconstruction. COMPARISON: CT angio headneck* [id number] 11/25/2023 10:16 AM RADIATION DOSE METRICS: Total DLP (mGy-cm): 1176.68 FINDINGS: Brain: There is moderate to advanced small vessel disease. Multiple chronic infarcts are noted. There is no evidence of acute parenchymal hemorrhage, extra-axial collection, or acute infarction. There is no mass effect, midline shift, or downward herniation. Cerebral ventricles: No ventriculomegaly. Paranasal sinuses: Visualized sinuses are unremarkable. No fluid levels. Mastoid air cells: Bilateral mastoid effusions are identified left greater than right. Bones: Unremarkable. No acute fracture. Soft tissues: Unremarkable. CT/CT head wo con* [id number] IMPRESSION: Moderate to advanced small vessel disease with multiple chronic infarcts identified. No evidence of acute intracranial process.
--- NOTE | 2023-11-26 08:31 | PC.CHAP ---
Pastoral Care Encounter/Spiritual Assessment Type of Contact [] Declined nut former visit [] Patient/Family/Request visit [] Outpatient visit [] Follow-up visit [] Physician referral [] Code/Alert [x] Routine visit [] Staff referral [] Actively dying [] Patient sleeping [] Family support [] [] Out of room [] Palliative care [] [] Receiving care in room [] Pre-surgical visit [] Trauma [] Long length of stay [] ICU visit [] Other: Relational/Emotional Strength [] Patient feels connected with others/family/visitors/staff [] Distress [] Loneliness/isolation [] Abandonment Spirituality of Patient [] Person of Dixie [] Attends Voodoo of their Dixie [x] Believes in Prayer [] Reads Bible or Spiritism materials [] There are Spiritual issues to be addressed Cardiac Cath Lab Technologist Interventions [x] Prayer [] Active listening [] Non-anxious presence [] Spiritual/emotional support [] Crisis/trauma care [] Spiritual counseling [] Bereavement support [] Provided bereavement packet [] Provided Bible/devotional materials [] Provided toy/stuffed animal, coloring book to patient or family member [] Provided Communion [] Anointing/[place] [] Salvation [] Completed spiritual assessment [] Other: Impact on Illness or Injury [] Angry [] Fearful [] Anxious [] Often cries [] Exhaustion [] Unable to work [] Unable to attend confucianism [] Unable to walk/stand [] Unable to read [] Unable to drive [] Unable to eat/drink [] Unable to sleep [] Unable to be with family [] Patient intubated [] Other: Summary Hard to communicate do to stroke. Time spent with patient 5min
--- NOTE | 2023-11-26 09:09 | PC.SOCIAL ---
IMM Updated Updated pt on IMM. No questions voiced. Provided pt a copy. Initialed, dated, & timed a copy & placed in chart.
[2023-11-26] MEDS: apixaban 5 mg Tablet PO ×2 (09:48→17:52)
[2023-11-26] MEDS: clopidogrel 75 mg Tablet PO (09:48)
--- NOTE | 2023-11-26 13:36 | PC.NURSE ---
Patient's friend Noreen Pena is DPOA of financial. Copy is in the chart, Prepaid cremation arrangements at [facility].
[2023-11-26] MEDS: HYDROcodone-acetaminophen 5-325 mg Tablet 1 TAB PO (20:55)
[2023-11-26] MEDS: atorvastatin 40 mg Tablet PO (20:55)
[2023-11-27] VITALS (12 sets, daily range): BP systolic 135–168; BP diastolic 66–82; PULSE 64–86; RESP 16–21; TEMP 36.4–37.2; O2SAT 91–99
[2023-11-27] MEDS: HYDROcodone-acetaminophen 5-325 mg Tablet 1 TAB PO ×3 (00:47→20:09)
[2023-11-27] MEDS: lanolin oint 7 gm 1 APPLIC TOPICAL (01:00)
[2023-11-27] MEDS: morphine 4 mg/mL SDV 1 mL 2 MG IVP ×2 (04:27→22:34)
[2023-11-27 05:10] LABS: Basophils % 0.4 %; Eosinophils % 0.6 %; Hematocrit 33.1 % (36-47); Lymphocytes # 0.9 10^3/uL (0.8-4.8); Lymphocytes % 12.9 %; Mean Corpuscular HGB Conc 31.1 g/dL (30-55); Mean Corpuscular Volume 86.9 fl (85-98); Monocytes # 0.5 10^3/uL (0.2-0.9); Monocytes % 6.4 %; Neutrophils % 79.3 %; Nucleated Red Blood Cells % 0 %; Platelet Count 252 10^3/cmm (157-399); Red Blood Count 3.81 10^6/uL (3.85-5.65); Red Cell Distribution Width 14.9 % (12.1-15.1); White Blood Count 7.06 10^3/uL (3.29-11.43)
[2023-11-27 05:37] LABS: Anion Gap 13.9 (5-19); Blood Urea Nitrogen 16 mg/dL (8-23); Calcium 8.6 mg/dL (8.5-10.5); Carbon Dioxide 23 mmol/L (22-29); Chloride 106 mmol/L (98-107); Creatinine Clr Calc Pharmacy 45.9781; Glucose 110 mg/dL (65-115); Osmolality Calculated 290 mOsm/kg (285-295); Potassium 3.9 mmol/L (3.5-5.1); Sodium 139 mmol/L (136-145)
[2023-11-27] MEDS: apixaban 5 mg Tablet PO (08:42)
[2023-11-27] MEDS: clopidogrel 75 mg Tablet PO (08:42)
[2023-11-27] MEDS: sodium chloride 0.9% 1,000 ML 75 ML IV (12:04)
--- NOTE | 2023-11-27 12:44 | CTR_ITS ---
PROCEDURE INFORMATION: Exam: CT Head Without Contrast Exam date and time: 11/27/2023 1:06 PM Age: 78 years old Clinical indication: Altered mental status/memory loss; Additional info: CVA TECHNIQUE: Imaging protocol: Computed tomography of the head without contrast. Radiation optimization: All CT scans at this facility use at least one of these dose optimization techniques: automated exposure control; mA and/or kV adjustment per patient size (includes targeted exams where dose is matched to clinical indication); or iterative reconstruction. COMPARISON: CT head wo con* [id number] 11/26/2023 8:02 AM RADIATION DOSE METRICS: Total DLP (mGy-cm): 979.68 FINDINGS: Brain: There is diffuse cerebral atrophy and chronic microvascular white matter disease. There is no significant mass effect or midline shift. There is a focal hypodensity in the right caudate nucleus consistent with a chronic lacunar infarct. There is a small focus of encephalomalacia in the high right precentral gyrus. There is focal encephalomalacia in the right posterior temporoparietal region adjacent to the ventricular margin. There is a region of mild hypodensity and loss of toney-white differentiation in the left temporal operculum extending into the left temporoparietal region. Cerebral ventricles: There is moderate ex vacuo dilation of the lateral ventricles. Basal cisterns are unremarkable. Paranasal sinuses: The paranasal sinuses are clear. Mastoid air cells: Diffuse bilateral mastoid effusion. Auditory system: No middle ear effusion. Bones: The calvarium is intact. Soft tissues: The visible extracranial soft tissues are unremarkable. CT/CT head wo con* [id number] IMPRESSION: 1. Evolving acute/subacute infarct in the left temporal operculum and temporoparietal region (left middle cerebral artery territory). Findings are new since 11/25/2023 and are similar to 11/26/2023. No hemorrhage or mass effect. 2. Multifocal chronic infarction as above. 3. Diffuse bilateral mastoid effusions. No middle ear effusions.
--- NOTE | 2023-11-27 12:44 | XRR_ITS ---
PROCEDURE INFORMATION: Exam: XR Chest Exam date and time: 11/27/2023 1:10 PM Age: 78 years old Clinical indication: Patient HX: Wheezing; SOB TECHNIQUE: Imaging protocol: Radiologic exam of the chest. Views: 1 view. COMPARISON: 1. CR XR chest 1V portable [id number] 11/25/2023 10:00 AM 2. CR XR chest 1V portable [id number] 08/02/2023 7:21 PM FINDINGS: Lungs: There is mild coarse reticular opacity in the lower lungs bilaterally. The upper lungs are clear. Pleural spaces: There is no pleural effusion or pneumothorax. Heart/Mediastinum: There is a large partially gas-filled hiatal hernia. There is mild cardiac enlargement. Bones/joints: There is severe degenerative disease of both shoulders. XR/XR chest 1V portable [id number] IMPRESSION: 1. Large gas distended hiatal hernia. Obstruction not excluded. Gas distension is similar to the 11/25/2023. The hiatal hernia is chronic, present since at least 08/02/2023. 2. Mild reticular opacity in the lower lungs bilaterally. Probable subsegmental atelectasis. Interstitial edema and infection cannot be excluded.
[2023-11-27 13:29] LABS: C Reactive Protein 39.7 mg/L (0.0-4.9)
--- NOTE | 2023-11-27 14:10 | P.PN_ITS ---
Subjective 2 Subjective: Patient was seen this morning, she is alert to person, not to place, to time, is encephalopathic, continues to have mild right facial droop and dense right hemiplegia, it is difficult for me to have her follow commands, she is encephalopathic Vitals/I&O/Wt Last Vital Signs Temp 98.2 F 11/27/23 11:47 Pulse 65 11/27/23 11:47 Resp 16 11/27/23 11:47 BP 144/77 11/27/23 11:47 Pulse Ox 99 11/27/23 11:47 O2 Del Method Room Air 11/27/23 11:47 11/26/23 11/27/23 11/27/23 22:59 06:59 14:59 Intake Total 948.75 / 948.75 1000 / 1000 Balance 948.75 / 948.75 1000 / 1000 Weight last 48 hrs Weight 62.737 kg Weight 66.848 kg Weight 65 kg Physical Exam 2 Const: COMMON NORMALS: no acute distress EXAM LIMITATIONS: altered mental status ORIENTATION/CONSCIOUSNESS: Yes awake, Yes oriented to person and Yes confused; not oriented to place and not oriented to time Resp: COMMON NORMALS: normal respiratory effort, No retractions, No use of accessory muscles and clear to auscultation bilaterally AUSCULTATION: clear to auscultation bilaterally Cardio: COMMON NORMALS: regular rate, regular rhythm, S1 normal heart sound present and S2 normal heart sound present RATE: regular rate RHYTHM: r egular rhythm HEART SOUNDS: S1 normal heart sound present and S2 normal heart sound present GI: COMMON NORMALS: Normal to inspection, nondistended, normoactive bowel sounds present and non-tender Extremity: COMMON NORMALS: no pedal edema Neuro: SENSORIUM/ORIENTATION: Yes oriented to person, No oriented to place and No oriented to time Skin: NARRATIVE SKIN EXAM: l bka Data 11/27/23 04:32 11/27/23 04:32 A&P Assessment and plan (1) CVA (cerebral vascular accident): Patient presenting with CVA, and right hemiparesis. The hemiparesis is dense currently, and was less so on admission. Secondary to change will repeat CT noncontrast to make sure no hemorrhagic conversion has occurred as she is on anticoagulants and antiplatelets. Therapy consultations appreciated Continue hydration. Keep n.p.o., as has high aspiration risk Fall precautions Telemetry She has had recent echocardiogram so this does not need to be repeated. On September 26 EF was 60 to 65% with 1/4 diastolic dysfunction with no change from 2016 CTA has already been done showing no thrombus. Narrowing of the intracranial carotid is noted to be approaching 60% on the left. Change aspirin to Plavix. She has a preponderance of vascular disease As she is high aspiration risk, stop Eliquis for 2 therapeutic Lovenox DVT prophylaxis therapeutic Lovenox which I believe she was put on for arterial thrombus Permissive hypertension. Hold enalapril currently. Possible restart lower dose tomorrow 48 hours after CVA if blood pressure remains high. Continue statin. I will discuss with patient. Previously she has refused. If she still refuses, will hold on the addition. She does agree to take a statin currently. She was placed on morphine last night. Should use sparingly Neurochecks ? Aspiration precautions ?NIH stroke scale (2) Carotid artery disease: See notations above Add statin (3) History of arterial thrombosis: Therapeutic Lovenox Referral to neurology as outpatient regarding thrombotic disease workup. May need further testing. Homocystine level, antiphospholipid antibody panel have been ordered Plan Multiple other medical problems as outlined in past medical history Full code currently Eliquis for DVT prophylaxis Patient requires hospitalization for CVA, continues to have altered mentation this morning, chest x-ray inflammatory markers repeat head CT, switch to therapeutic Lovenox keep n.p.o. as high aspiration risk Attestations 2 Medical Necessity Statement*: Patient requires hospitalization for acute CVA, dense right hemiplegia Diagnoses CVA (cerebral vascular accident) I63.9 Carotid artery disease I77.9 History of arterial thrombosis Z86.718
[2023-11-27 16:52] LABS: Charge for UA Resulting for Rev
[2023-11-27 17:04] LABS: Bilirubin Urine Negative (Negative); Blood Urine 2+ (Negative); Glucose Urine UA Negative (Normal); Ketones Urine Trace (Negative); Leukocyte Esterase Urine Negative (Negative); Nitrate Urine Negative (Negative); Protein Urine 1+ (Negative); Specific Gravity, Urine 1.011 (1.005-1.030); Urine Appearance Clear (CLEAR); Urine Color Yellow (Yellow); Urobilinogen Urine 0.2 mg/dL (Negative)
[2023-11-27 17:09] LABS: Bacteria Urine None Seen /hpf; RBC Urine 21-50 /hpf (0-2); Squamous Epithelial Cell Urine 0-5 /hpf (0-5)
[2023-11-27 17:14] LABS: Add Urine Culture? Yes
[2023-11-27] MEDS: enoxaparin 60 mg/0.6 mL Syringe SUBCUT (20:09)
[2023-11-27] MEDS: atorvastatin 40 mg Tablet PO (20:09)
[2023-11-27 21:51] LABS: Amphetamines Screen Urine Negative (Negative); Barbiturates Screen Urine Negative (Negative); Benzodiazepines Screen Urine Negative (Negative); Cocaine Screen Urine Negative (Negative); Opiate Screen Urine Positive (Negative); PCP Screen Urine Negative (Negative); THC Screen Urine Negative (Negative)
[2023-11-28] VITALS (10 sets, daily range): BP systolic 93–156; BP diastolic 48–83; PULSE 57–88; RESP 15–19; TEMP 36.4–37.2; O2SAT 93–96
[2023-11-28] MEDS: HYDROcodone-acetaminophen 5-325 mg Tablet 1 TAB PO (00:45)
[2023-11-28] MEDS: enoxaparin 60 mg/0.6 mL Syringe SUBCUT ×2 (08:08→21:12)
[2023-11-28] MEDS: morphine 4 mg/mL SDV 1 mL 2 MG IVP ×3 (08:09→17:17)
[2023-11-28 09:18] LABS: Basophils % 0.5 %; Eosinophils # 0.1 10^3/uL (0.0-0.8); Eosinophils % 0.6 %; Hematocrit 32.1 % (36-47); Lymphocytes # 0.6 10^3/uL (0.8-4.8); Mean Corpuscular HGB Conc 30.8 g/dL (30-55); Mean Corpuscular Hemoglobin 26.5 pg (27-33); Mean Corpuscular Volume 85.8 fl (85-98); Mean Platelet Volume 8.5 fL (7.4-10.4); Monocytes # 0.5 10^3/uL (0.2-0.9); Monocytes % 5.9 %; Neutrophils % 85.8 %; Nucleated Red Blood Cells % 0 %; Platelet Count 217 10^3/cmm (157-399); Red Blood Count 3.74 10^6/uL (3.85-5.65); Red Cell Distribution Width 14.6 % (12.1-15.1); White Blood Count 8.16 10^3/uL (3.29-11.43)
[2023-11-28 09:34] LABS: Alanine Aminotransferase 8 U/L (0-33); Albumin Level 2.9 g/dL (3.5-5.2); Alkaline Phosphatase 94 U/L (35-105); Anion Gap 15.7 (5-19); Aspartate Amino Transferase 10 U/L (0-32); Blood Urea Nitrogen 16 mg/dL (8-23); Calcium 8.2 mg/dL (8.5-10.5); Carbon Dioxide 21 mmol/L (22-29); Chloride 107 mmol/L (98-107); Creatinine Clr Calc Pharmacy 51.9227; Globulin 3.2 g/dL (1.3-4.6); Glucose 86 mg/dL (65-115); Osmolality Calculated 290 mOsm/kg (285-295); Potassium 3.7 mmol/L (3.5-5.1); Sodium 140 mmol/L (136-145); Total Bilirubin 0.3 mg/dL (0.15-1.2); Total Protein 6.1 g/dL (6.6-8.7)
[2023-11-28] MEDS: cefTRIAXone 1,000 mg SDV 1000 MG IVP (09:45)
[2023-11-28] MEDS: sodium chloride 0.9% 1,000 ML 75 ML IV (11:27)
--- NOTE | 2023-11-28 17:08 | P.PN_ITS ---
Subjective 2 Subjective: Patient was seen this morning, she can answer basic yes or no questions, by nodding her head, still too weak to answer with speaking a few words, she is able to follow commands she is able to move her left arm, she has had a left BKA, still has dense right hemiplegia has a right facial droop, she denies any pain, denies any chest pain, denies any shortness of breath, denies any abdominal pain, I had a detailed discussion with her about her CVA, I cannot get any significant information from her, or any sign that she has understood the information that I have provided to her, I am worried that she cannot comprehend the significance of the situation -I spoke to Noreen Lee's jaxon nd, she 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 catheter 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 agent, currently jose Ruelas, we had a detailed discussion with her about her stroke, discussed continue medical management giving her time, versus comfort care, discussed PEG tube placement, she tells me that britany would not want artificial means of life support if she would not have meaningful recovery, britany has at times voiced to Noreen that she was ready to see her who has a few years ago -I spoke to patient's healthcare power o f field training agent, Suraj Clifton about patient's CVA, dense right hemiplegia, right facial droop, concerns for high aspiration she is n.p.o., working with physical therapy, discussed her CT findings, CTA findings, M2 occlusion, she is out of the window for acute intervention, and this all happened on Eliquis therapy, that she was on meds, so medical therapy. Certainly this is a difficult situation as she was just here in the hospital in September right MCA stroke. Essentially patient has developed a stroke bilaterally in the last 2 months, overall I think her prognosis is poor, status is stable, we discussed giving her time getting PT OT, speech therapy, IV fluids blood thinners and seeing if she were to have more signs of recovery. We did also discuss PEG tube placement versus comfort care, he tells me that Britany and would just want to be comfortable in this situation, she would not want to have aggressive interventions, but he wants to see how she does over the next 24 hours before making a final decision. He tells me that he is trying to get up to [place] but the earliest he can be here is on Wednesday Vitals/I&O/Wt Last Vital Signs Temp 97.6 F 11/28/23 15:56 Pulse 77 11/28/23 15:56 Resp 16 11/28/23 15:56 BP 136/64 11/28/23 15:56 Pulse Ox 96 11/28/23 15:56 O2 Del Method Room Air 11/28/23 15:56 11/28/23 11/28/23 11/28/23 06:59 14:59 22:59 Intake Total 55 / 1055 931.25 / 931.25 Output Total 1375 / 1375 Balance -1320 / -320 931.25 / 931.25 Weight last 48 hrs Weight 63.276 kg Weight 62.737 kg Physical Exam 2 Const: COMMON NORMALS: no acute distress ORIENTATION/CONSCIOUSNESS: Yes awake, Yes oriented to person and Yes confused; not oriented to place and not oriented to time Resp: COMMON NORMALS: normal respiratory effort, No retractions, No use of accessory muscles and clear to auscultation bilaterally AUSCULTATION: clear to auscultation bilaterally Cardio: COMMON NORMALS: regular rate, regular rhythm, S1 normal heart sound present and S2 normal heart sound present RATE: regular rate RHYTHM: r egular rhythm HEART SOUNDS: S1 normal heart sound present and S2 normal heart sound present GI: COMMON NORMALS: Normal to inspection, nondistended, normoactive bowel sounds present and non-tender Extremity: COMMON NORMALS: no pedal edema Neuro: SENSORIUM/ORIENTATION: Yes oriented to person, No oriented to place and No oriented to time OTHER: Right-sided dense hemiplegia, right facial droop Urinary Catheter Management: Odom: Cath Placed During This Visit: yes Reason for Continuing Indwelling Catheter: Other Urinary Catheter Date of Insertion: 11/27/23 Urinary Catheter Time of Insertion: 16:40 Data 11/28/23 09:11 11/28/23 09:11 A&P Assessment and plan (1) CVA (cerebral vascular accident): Acute CVA, and right hemiparesis, right facial droop, word finding difficulty, mild slurring of her words -Head CT 11/27/2023. CT/CT head wo con* [id number] IMPRESSION: 1. Evolving acute/subacute infarct in the left temporal operculum and temporoparietal region (left middle cerebral artery territory). Findings are new since 11/25/2023 and are similar to 11/26/2023. No hemorrhage or mass effect. 2. Multifocal chronic infarction as above. 3. 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 The finding is seen on the CT angiogram of the head and neck 11/25/2023 axial series 4 image 244 through 249. Diffuse bilateral mastoid effusions. No middle ear effusions. -Patient was not a candidate for tPA as she was on anticoagulant therapy -During my examination, and CT scan findings as above, she was out of the window for endovascular procedure -Patient was on Eliquis, aspirin already at home -Continue therapeutic Lovenox -Continue Plavix -PT OT -Speech therapy eval -IV hydration -Allow for permissive hypertension -Continue telemetry monitoring -Neurochecks -Aspiration precautions -Morphine as needed for pain She has had recent echocardiogram so this does not need to be repeated. On September 26 EF was 60 to 65% with 1/4 diastolic dysfunction with no change from 2016 CTA has already been done showing no thrombus. Narrowing of the intracranial carotid is noted to be approaching 60% on the left. DVT prophylaxis therapeutic Lovenox which I believe she was put on for arterial thrombus Permissive hypertension. Hold enalapril currently. Possible restart lower dose tomorrow 48 hours after CVA if blood pressure remains high. She was placed on morphine last night. Should use sparingly Neurochecks ? Aspiration precautions ?NIH stroke scale (2) Carotid artery disease: See notations above Add statin (3) History of arterial thrombosis: Therapeutic Lovenox Referral to neurology as outpatient regarding thrombotic disease workup. May need further testing. Homocystine level, antiphospholipid antibody panel have been ordered Plan Multiple other medical problems as outlined in past medical history Full code currently Eliquis for DVT prophylaxis Concerns for aspiration, scattered wheezing on examination, start Rocephin Attestations 2 Medical Necessity Statement*: Patient requires hospitalization for acute CVA, right hemiplegia Diagnoses CVA (cerebral vascular accident) I63.9 Carotid artery disease I77.9 History of arterial thrombosis Z86.713
[2023-11-28] MEDS: LORazepam 2 mg/mL INJ 1 mL 0.5 MG IVP (18:33)
[2023-11-28 20:01] LABS: Glucose Point of Care 85 mg/dL (70-110)
[2023-11-29] VITALS (12 sets, daily range): BP systolic 117–151; BP diastolic 60–76; PULSE 77–96; RESP 15–20; TEMP 36.6–37.8; O2SAT 88–96
[2023-11-29] MEDS: sodium chloride 0.9% 1,000 ML 75 ML IV (01:17)
[2023-11-29] MEDS: morphine 4 mg/mL SDV 1 mL 2 MG IVP ×2 (03:59→12:11)
[2023-11-29 04:26] LABS: Basophils # 0.1 10^3/uL (0.0-0.1); Basophils % 0.8 %; Eosinophils # 0.1 10^3/uL (0.0-0.8); Eosinophils % 1.5 %; Hematocrit 31.7 % (36-47); Lymphocytes # 0.8 10^3/uL (0.8-4.8); Lymphocytes % 12.1 %; Mean Corpuscular HGB Conc 30.3 g/dL (30-55); Mean Corpuscular Hemoglobin 26.4 pg (27-33); Mean Corpuscular Volume 87.3 fl (85-98); Mean Platelet Volume 9.5 fL (7.4-10.4); Monocytes # 0.6 10^3/uL (0.2-0.9); Monocytes % 8.8 %; Neutrophils # 5.05 10^3/uL (1.8-7.7); Neutrophils % 76.5 %; Nucleated Red Blood Cells % 0 %; Platelet Count 238 10^3/cmm (157-399); Red Blood Count 3.63 10^6/uL (3.85-5.65); Red Cell Distribution Width 14.6 % (12.1-15.1)
[2023-11-29 04:57] LABS: Anion Gap 17.5 (5-19); Blood Urea Nitrogen 17 mg/dL (8-23); Calcium 8.3 mg/dL (8.5-10.5); Carbon Dioxide 19 mmol/L (22-29); Chloride 109 mmol/L (98-107); Creatinine Clr Calc Pharmacy 53.3339; Glucose 67 mg/dL (65-115); NT Pro B Type Natriuretic Pept 1404 pg/mL (0-450); Osmolality Calculated 294 mOsm/kg (285-295); Potassium 3.5 mmol/L (3.5-5.1); Sodium 142 mmol/L (136-145)
[2023-11-29 05:04] LABS: C Reactive Protein 62.1 mg/L (0.0-4.9)
[2023-11-29] MEDS: LORazepam 2 mg/mL INJ 1 mL 0.5 MG IVP (06:49)
[2023-11-29] MEDS: cefTRIAXone 1,000 mg SDV 1000 MG IVP (08:45)
[2023-11-29] MEDS: enoxaparin 60 mg/0.6 mL Syringe SUBCUT (08:45)
--- NOTE | 2023-11-29 11:40 | PC.SOCIAL ---
IMM Update pg 2 of IMM updated and reviewed w/ patients family. Copy provided and copy dated, initialed and placed in chart.
--- NOTE | 2023-11-29 15:16 | P.PN_ITS ---
Subjective 2 Subjective: Patient was seen this morning, she is alert to person, not to place, to time, she can follow commands she can move her left upper extremity, to commands, I have tried to get information from her for basic yes or no questions, from having her nod or having her squeeze my fingers, but I cannot really get any consistent responses from her, she continues to have significant right hemiplegia, right facial droop, afebrile overnight, normotensive, -I attempted to get an answer from her t o see if she would like a feeding tube, she said no to this answer, this answer was consistent -When I asked her would she want to be c omfortable and for us to ease her opinions her suffering allow her to pass away comfortably did not get any consistent answer from her Vitals/I&O/Wt Last Vital Signs Temp 99.1 F 11/29/23 12:00 Pulse 88 11/29/23 12:00 Resp 17 11/29/23 12:11 BP 133/74 11/29/23 12:00 Pulse Ox 94 11/29/23 12:11 O2 Del Method Room Air 11/29/23 12:00 11/29/23 11/29/23 11/29/23 06:59 14:59 22:59 Intake Total 175 / 1931.25 Output Total 250 / 700 Balance -75 / 1231.25 Weight last 48 hrs Weight 67.132 kg Weight 63.276 kg Physical Exam 2 Const: COMMON NORMALS: no acute distress EXAM LIMITATIONS: altered mental status ORIENTATION/CONSCIOUSNESS: Yes awake, Yes oriented to person and Yes confused; not oriented to place and not oriented to time OTHER: Right facial droop Resp: COMMON NORMALS: normal respiratory effort, No retractions and No use of accessory muscles AUSCULTATION: wheezes Cardio: COMMON NORMALS: regular rate, regular rhythm, S1 normal heart sound present and S2 normal heart sound present RATE: regular rate RHYTHM: r egular rhythm HEART SOUNDS: S1 normal heart sound present and S2 normal heart sound present GI: COMMON NORMALS: Normal to inspection, nondistended, normoactive bowel sounds present and non-tender Extremity: COMMON NORMALS: no pedal edema Neuro: SENSORIUM/ORIENTATION: Yes oriented to person, No oriented to place and No oriented to time OTHER: Right hemiplegia Urinary Catheter Management: Odom: Cath Placed During This Visit: yes Reason for Continuing Indwelling Catheter: Other Urinary Catheter Date of Insertion: 11/27/23 Urinary Catheter Time of Insertion: 16:40 Data 11/29/23 03:23 11/29/23 03:23 Micro: Microbiology 11/27/23 16:40 Urine Culture - Final Urine,Clean Catch A&P Assessment and plan (1) CVA (cerebral vascular accident): Acute CVA, and right hemiparesis, right facial droop, word finding difficulty, mild slurring of her words, encephalopathy -Head CT 11/27/2023. CT/CT head wo con* [id number] IMPRESSION: 1. Evolving acute/subacute infarct in the left temporal operculum and temporoparietal region (left middle cerebral artery territory). Findings are new since 11/25/2023 and are similar to 11/26/2023. No hemorrhage or mass effect. 2. Multifocal chronic infarction as above. 3. 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 The finding is seen on the CT angiogram of the head and neck 11/25/2023 axial series 4 image 244 through 249. Diffuse bilateral mastoid effusions. No middle ear effusions. -Patient was not a candidate for tPA as she was on anticoagulant therapy -During my examination, and CT scan findings as above, she was out of the window for endovascular procedure -Patient was on Eliquis, aspirin already at home -Continue therapeutic Lovenox -Continue Plavix -PT OT -Speech therapy eval -IV hydration -Allow for permissive hypertension -Continue telemetry monitoring -Neurochecks -Aspiration precautions -Morphine as needed for pain She has had recent echocardiogram so this does not need to be repeated. On September 26 EF was 60 to 65% with 1/4 diastolic dysfunction with no change from 2016 CTA has already been done showing no thrombus. Narrowing of the intracranial carotid is noted to be approaching 60% on the left. DVT prophylaxis therapeutic Lovenox which I believe she was put on for arterial thrombus Permissive hypertension. Hold enalapril currently. Possible restart lower dose tomorrow 48 hours after CVA if blood pressure remains high. She was placed on morphine last night. Should use sparingly Neurochecks ? Aspiration precautions ?NIH stroke scale (2) Carotid artery disease: See notations above Add statin (3) History of arterial thrombosis: Therapeutic Lovenox Referral to neurology as outpatient regarding thrombotic disease workup. May need further testing. Homocystine level, antiphospholipid antibody panel have been ordered Plan Multiple other medical problems as outlined in past medical history Full code currently Eliquis for DVT prophylaxis Continues to have high aspiration risk keep n.p.o., until speech therapy alan, PT OT, will see if we can FaceTime so her brother can see her who is the DPOA, will await decision making, proceeding with medical management considering PEG tube placement versus hospice/comfort care, repeat head CT today Attestations 2 Medical Necessity Statement*: Patient requires hospitalization for acute CVA, residual right-sided hemiparesis, encephalopathy Diagnoses CVA (cerebral vascular accident) I63.9 Carotid artery disease I77.9 History of arterial thrombosis Z86.718
[2023-11-29] MEDS: LORazepam 2 mg/mL INJ 1 mL IVP (17:28)
[2023-11-29] MEDS: morphine 4 mg/mL SDV 1 mL IVP (19:16)
[2023-11-30 06:00] VITALS: BMI 25.8
[2023-11-30 07:27] VITALS: BP 113/59; PULSE 72; RESP 19; TEMP 36.6; O2SAT 95
[2023-11-30 09:48] VITALS: RESP 19; O2SAT 95
[2023-11-30] MEDS: morphine 4 mg/mL SDV 1 mL IVP ×2 (09:48→16:13)
--- NOTE | 2023-11-30 10:36 | P.DS_ITS ---
Discharge Providers Date of Admission: 11/25/23 12:14 Date of Discharge: November 30, 2023 Attending Provider at Admission: Keron Muir MD Attending Provider at Discharge: Raymundo Cleveland MD Primary Care Provider: Anabelle Hernandes DO Diagnoses at Discharge Discharge Diagnosis (1) CVA (cerebral vascular accident): Status: Acute (2) Carotid artery disease: Status: Acute (3) History of arterial thrombosis: Status: Chronic Reason for Visit Reason for Visit: stroke Hospital Course Hospital Course Britany Alvarenga is a 78 year old female presenting to the hospital from [facility] with acute onset of right facial droop, and dense right hemiparesis at 850 5 in the morning while being assessed by nurse. She denied any pain, but was having difficulty saying the words that she wanted, with the above deficits. She had had a recent hospitalization in September for stroke causing left hemiparesis. 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 currently she denies any headache, nausea, chest discomfort. She is concerned that she has had another stroke. She reports no recent illness. Patient was admitted to [facility] for acute CVA, right-sided hemiparesis/hemiplegia right-sided facial droop word finding difficulty, mild slurring of her words, encephalopathy. On admission, patient was not a tPA candidate, as she was on Eliquis, CT head no acute intracranial bleed ? CT head and neck CT/CT angio headneck* [id number] IMPRESSION: 1. No cervical carotid artery stenosis. 2. Moderate plaque in the intracranial cavernous carotid arteries with a LEFT approaching 60% stenosis. 3. No aneurysms or occlusions or thrombus in the [place]. 4. Small bilateral pleural effusions. 5. Large hiatal hernia. 6. Unremarkable [place] was medically managed allowed for IV fluids, permissive hypertension, anticoagulated, and monitored. -[facility] was contacted, as patient came in as a stroke alert, recommended medical management -She was medically managed, on anticoagulant therapy, IV fluids, permissive hypertension, PT OT, speech therapy eval -During my evaluation 11/27/2023 patient continued to have right sided hemiplegia/hemiparesis, right-sided facial droop, slurring of her words, high aspiration risk, encephalopathy Repeat imaging as below: -Head CT 11/27/2023. CT/CT head wo con* [id number] IMPRESSION: 1. Evolving acute/subacute infarct in the left temporal operculum and temporoparietal region (left middle cerebral artery territory). Findings are new since 11/25/2023 and are similar to 11/26/2023. No hemorrhage or mass effect. 2. Multifocal chronic infarction as above. 3. CT/CT head wo con* [id number] -CTA head and neck addendum shows In retrospect, of the prior CT angiogram of the head demonstrates occlusion of an M2 branch of the left middle cerebral artery which serves the region of infarcted brain visible on today's exam. The finding is seen on the CT angiogram of the head and neck 11/25/2023 axial series 4 image 244 through 249. Diffuse bilateral mastoid effusions. No middle ear effusions. -Patient was not a candidate for tPA as she was on anticoagulant therapy -During my examination, and CT scan findings as above, she was out of the window for endovascular procedure -Continued medical management, anticoagulant therapy, IV fluids, permissive hy pertension -Patient had persistent right sided hemiplegia, right sided facial droop, encephalopathy, high aspiration risk, no significant clinical improvement -96 hours from her stroke, no significant improvement, patient cannot make decisions for herself, given her stroke, encephalopathy, she cannot give an informed decision -Had a extensive goals of care discussion with patient's healthcare power of regulatory attorney Suraj Clifton, patient's brother, also spoke to patient's friend Noreen Pena, discussed with him all options available, after discussing with them the risk and benefits of all options, they voiced understanding, shared decision making, all questions answered, agreed to proceed with comfort care ? [facility] be [facility] on comfort care Physical Exam Const: COMMON NORMALS: no acute distress EXAM LIMITATIONS: altered mental status ORIENTATION/CONSCIOUSNESS: Yes awake and Yes confused; not oriented to person and not oriented to time Resp: COMMON NORMALS: normal respiratory effort, No retractions and No use of accessory muscles AUSCULTATION: crackles and wheezes OTHER: tachypnea Cardio: COMMON NORMALS: regular rate, regular rhythm, S1 normal heart sound present and S2 normal heart sound present RATE: regular rate RHYTHM: regular rhythm HEART SOUNDS: S1 normal heart sound present and S2 normal heart sound present GI: COMMON NORMALS: Normal to inspection, nondistended, normoactive bowel sounds present and non-tender Extremity: COMMON NORMALS: no pedal edema Neuro: SENSORIUM/ORIENTATION: No oriented to person and No oriented to time Urinary Catheter Management: Odom: Cath Placed During This Visit: yes Reason for Continuing Indwelling Catheter: Other Urinary Catheter Date of Insertion: 11/27/23 Urinary Catheter Time of Insertion: 16:40 Discharge Data Studies Completed and Pending Completed Studies During Hospitalization Category Date Time Status CT angio headneck* [id number] Stat Cat Scan 11/25/23 09:[address] head thrombolytic [id number] Stat Cat Scan 11/25/23 09:[address] head wo con* [id number] Stat Cat Scan 11/27/23 12:[address] head wo con* [id number] Urgent Cat Scan 11/26/23 07:50 Completed XR chest 1V portable [id number] Routine Exams 11/27/23 12:44 Completed XR chest 1V portable [id number] Stat Exams 11/25/23 09:47 Completed Pending at discharge Category Date Time Status Antiphospholipid Antibody Morales Routine Lab 11/25/23 09:52 Received COVID [SARS Covid-2 Antigen] Routine Lab 11/30/23 10:13 Uncollected Radiology Impressions Head/Neck CTA 11/25/23 09:47 IMPRESSION: 1. No cervical carotid artery stenosis. 2. Moderate plaque in the intracranial cavernous carotid arteries with a LEFT approaching 60% stenosis. 3. No aneurysms or occlusions or thrombus in the [place]. 4. Small bilateral pleural effusions. 5. Large hiatal hernia. 6. Unremarkable [place]. Chest X-Ray 11/27/23 12:44 IMPRESSION: 1. Large gas distended hiatal hernia. Obstruction not excluded. Gas distension is similar to the 11/25/2023. The hiatal hernia is chronic, present since at least 08/02/2023. 2. Mild reticular opacity in the lower lungs bilaterally. Probable subsegmental atelectasis. Interstitial edema and infection cannot be excluded. Head CT 11/27/23 12:44 IMPRESSION: 1. Evolving acute/subacute infarct in the left temporal operculum and temporoparietal region (left middle cerebral artery territory). Findings are new since 11/25/2023 and are similar to 11/26/2023. No hemorrhage or mass effect. 2. Multifocal chronic infarction as above. 3. Diffuse bilateral mastoid effusions. No middle ear effusions. ADDENDUM: 11/27/23 1431 In retrospect, of the prior CT angiogram of the head demonstrates occlusion of an M2 branch of the left middle cerebral artery which serves the region of infarcted brain visible on today's exam. The finding is seen on the CT angiogram of the head and neck 11/25/2023 axial series 4 image 244 through 249. THIS REPORT AND ADDENDUM CONTAINS FINDINGS THAT MAY BE CRITICAL TO PATIENT CARE. The findings and recommendations were personally verbally communicated via telephone conference with RAYMUNDO CLEVELAND at 2:26 PM CDT on 11/27/2023. The findings were acknowledged and understood. Laboratory Results WBC 6.60 10^3/uL (3.29-11.43) 11/29/23 03:23 RBC 3.63 10^6/uL (3.85-5.65) L 11/29/23 03:23 Hgb 9.60 g/dL (11.27-16.99) L 11/29/23 03:23 Hct 31.7 % (36-47) L 11/29/23 03:23 MCV 87.3 fl (85-98) 11/29/23 03:23 MCH 26.4 pg (27-33) L 11/29/23 03:23 MCHC 30.3 g/dL (30-55) 11/29/23 03:23 RDW 14.6 % (12.1-15.1) 11/29/23 03:23 Plt Count 238 10^3/cmm (157-399) 11/29/23 03:23 MPV 9.5 fL (7.4-10.4) 11/29/23 03:23 Neut % (Auto) 76.5 % 11/29/23 03:23 Lymph % (Auto) 12.1 % 11/29/23 03:23 [place] % (Auto) 8.8 % 11/29/23 03:23 Eos % (Auto) 1.5 % 11/29/23 03:23 Baso % (Auto) 0.8 % 11/29/23 03:23 Neut # (Auto) 5.05 10^3/uL (1.8-7.7) 11/29/23 03:23 Lymph # (Auto) 0.8 10^3/uL (0.8-4.8) 11/29/23 03:23 [place] # (Auto) 0.6 10^3/uL (0.2-0.9) 11/29/23 03:23 Eos # (Auto) 0.1 10^3/uL (0.0-0.8) 11/29/23 03:23 Baso # (Auto) 0.1 10^3/uL (0.0-0.1) 11/29/23 03:23 Nucleated RBC % (auto) 0 % 11/29/23 03:23 Nucleated RBCs # 0.0 /100WBC 11/29/23 03:23 PT 17.80 SECONDS (12.1-14.9) H 11/25/23 09:52 INR 1.41 (0.8-1.2) H 11/25/23 09:52 APTT 29.5 SECONDS (23.9-36.7) 11/25/23 09:52 Sodium 142 mmol/L (136-145) 11/29/23 03:23 Potassium 3.5 mmol/L (3.5-5.1) 11/29/23 03:23 Chloride 109 mmol/L (98-107) H 11/29/23 03:23 Carbon Dioxide 19 mmol/L (22-29) L 11/29/23 03:23 Anion Gap 17.5 (5-19) 11/29/23 03:23 BUN 17 mg/dL (8-23) 11/29/23 03:23 Creatinine 0.8 mg/dL (0.5-0.9) 11/29/23 03:23 GFR Calculation Not Reportable 11/29/23 03:23 Glucose 67 mg/dL (65-115) 11/29/23 03:23 POC Glucose 85 mg/dL (70-110) 11/28/23 19:57 Calculated Osmolality 294 mOsm/kg (285-295) 11/29/23 03:23 Calcium 8.3 mg/dL (8.5-10.5) L 11/29/23 03:23 Total Bilirubin 0.3 mg/dL (0.15-1.2) 11/28/23 09:11 AST 10 U/L (0-32) 11/28/23 09:11 ALT 8 U/L (0-33) 11/28/23 09:11 Alkaline Phosphatase 94 U/L (35-105) 11/28/23 09:11 C-Reactive Protein 62.1 mg/L (0.0-4.9) H 11/29/23 03:23 NT-Pro-B Natriuret Pep 1404 pg/mL (0-450) H 11/29/23 03:23 Total Protein 6.1 g/dL (6.6-8.7) L 11/28/23 09:11 Albumin 2.9 g/dL (3.5-5.2) L 11/28/23 09:11 Globulin 3.2 g/dL (1.3-4.6) 11/28/23 09:11 Triglycerides 119 mg/dL (0-150) 11/26/23 04:39 Cholesterol 175 mg/dL (0-200) 11/26/23 04:39 LDL Cholesterol, Calc 109 mg/dL (50-129) 11/26/23 04:39 HDL Cholesterol 42 mg/dL (60-100) L 11/26/23 04:39 LDL/HDL Ratio 2.60 RATIO (0.00-3.22) 11/26/23 04:39 Cholesterol/HDL Ratio 4.17 mg/dL (0.0-4.40) 11/26/23 04:39 Homocysteine 12.23 umol/l (0-15) 11/25/23 09:52 Procalcitonin 0.10 ng/mL (0-0.5) 11/27/23 04:32 TSH 1.18 uIU/mL (0.27-4.20) 11/25/23 09:52 Urine Color Yellow (Yellow) 11/27/23 16:40 Urine Appearance Clear (CLEAR) 11/27/23 16:40 Urine pH 7.0 (5-7) 11/27/23 16:40 Ur Specific [place] 1.011 (1.005-1.030) 11/27/23 16:40 Urine Protein 1+ (Negative) A 11/27/23 16:40 Urine Glucose (UA) Negative (Normal) 11/27/23 16:40 Urine Ketones Trace (Negative) 11/27/23 16:40 Urine Blood 2+ (Negative) A 11/27/23 16:40 Urine Nitrate Negative (Negative) 11/27/23 16:40 Urine Bilirubin Negative (Negative) 11/27/23 16:40 Urine Urobilinogen 0.2 mg/dL (Negative) 11/27/23 16:40 Ur Leukocyte Esterase Negative (Negative) 11/27/23 16:40 Urine RBC 21-50 /hpf (0-2) H 11/27/23 16:40 Urine WBC 6-10 /hpf (0-5) 11/27/23 16:40 Ur Squamous Epith Cells 0-5 /hpf (0-5) 11/27/23 16:40 Amorphous Sediment Not Reportable 11/27/23 16:40 Urine Bacteria None seen /hpf (NONE) 11/27/23 16:40 Hyaline Casts 3.30 /lpf 11/27/23 16:40 Urine Opiates Screen Positive ng/mL (Negative) H 11/27/23 16:40 Ur Barbiturates Screen Negative ng/mL (Negative) 11/27/23 16:40 Ur Phencyclidine Scrn Negative ng/mL (Negative) 11/27/23 16:40 Ur Amphetamines Screen Negative ng/mL (Negative) 11/27/23 16:40 U Benzodiazepines Scrn Negative ng/mL (Negative) 11/27/23 16:40 Urine Cocaine Screen Negative ng/mL (Negative) 11/27/23 16:40 U Marijuana (THC) Screen Negative ng/mL (Negative) 11/27/23 16:40 Vitals Last Vital Signs Temp 97.8 F 11/30/23 07:27 Pulse 72 11/30/23 07:27 Resp 19 H 11/30/23 09:48 BP 113/59 11/30/23 07:27 Pulse Ox 95 11/30/23 09:48 O2 Del Method Room Air 11/30/23 07:27 Discharge Plan Discharge Patient Disposition: Hospice - Medical Facility Condition: Stable Prescriptions: Discontinued enalapril maleate 10 mg tablet 10 mg PO BID Qty: 180 1RF acetaminophen 325 mg Tablet 650 mg PO Q4H PRN (Reason: Pain) magnesium hydroxide [Milk of Magnesia] 400 mg/5 mL Suspension 30 ml PO DAILY PRN (Reason: Constipation) bisacodyl [Dulcolax (bisacodyl)] 10 mg Suppository 10 mg NM DAILY PRN (Reason: Constipation) Fleet Enema 19-7 gram/118 mL Enema 118 ml NM DAILY PRN (Reason: Constipation) Eliquis 5 mg Tablet 5 mg PO BID hydrocodone-acetaminophen 5-325 mg Tablet 1 tab PO Q4H PRN (Reason: Pain) polyethylene glycol 3350 [Miralax] 17 gram/dose Powder See Rx Instructions .ROUTE .COMPLEX Rx Instructions: MIX 1 CAPFUL (17 g) IN 8 OUNCES LIQUID AND DRINK ENTIRE LIQUID DAILY NEEDED FOR CONSTIPATION. amino acids-protein hydrolys 15-101 gram-kcal/30 mL Liquid 1 ea PO DAILY camphor-menthol 0.2-3.5 % Gel 1 applic TOPICAL DAILY PRN (Reason: Pain) Rx Instructions: rub in gently and completely aspirin 81 mg capsule 81 mg PO DAILY Qty: 30 0RF Artificial Tears (PF) Drop[place]rette 1 drp OPHTHALMIC (EYE) BID PRN (Reason: Dry Eyes) Probiotic 3 billion cell Capsule 3,000 mmu cells PO DAILY PRN (Reason: WHILE ON ANTIBIOTICS) Rx Instructions: administer with a meal Discharge Orders: Discharge Order (Routine); Ordered 11/30/23 Ordered By: Raymundo Cleveland Referrals: Anabelle Hernandes DO [Primary Care Provider] - Discharge Diet: Regular Discharge Activity: Resume usual activity Discharge Attestations Time Spent in Discharge Care*: greater than 30 min Status at Discharge: Cognitive status at discharge: mildly impaired cognition , Behavioral status at discharge: cooperative , Quality Metrics Clinical Quality Measures [ Cerebrovascular Accident { Contraindication to Antithrombotic: Other; Contraindication to Anticoagulation: Overlap treatment not indicated; Contraindication to Statin: Drug treatment not indicated;}] Coding Level of Care Code 48742 Total time (in minutes) for Discharge: 45 Diagnoses CVA (cerebral vascular accident) I63.9 Carotid artery disease I77.9 History of arterial thrombosis Z86.718
[2023-11-30 12:33] LABS: SARS Covid-2 Antigen negative (Negative)
[2023-11-30 16:13] VITALS: RESP 19; O2SAT 95
[2023-11-30 17:31] VITALS: RESP 19; O2SAT 95
[2023-12-03 21:09] LABS: Beta 2 Glycoprotein IGA <2.0 U/mL; Beta 2 Glycoprotein IGG <2.0 U/mL; Beta 2 Glycoprotein IGM <2.0 U/mL; CARDIOLIPIN AB (IGA) <2.0 APL-U/mL; CARDIOLIPIN AB (IGG) <2.0 GPL-U/mL; CARDIOLIPIN AB (IGM) <2.0 MPL-U/mL
== END 2023-11-30 17:32 | disposition hospice, home (50) | DRG 65 ==
LOC: ER 09:57 → ER IP 12:14 → MEDSURG 13:19
PROVIDERS: Admitting Provider Internal Medicine; Emergency Provider Family Medicine; PCP Family Medicine; Visit Provider Family Medicine
DX: I63.512 Cerebral infarction due to unspecified occlusion or stenosis of left middle cerebral artery (principal); G81.91 Hemiplegia, unspecified affecting right dominant side; G93.49 Other encephalopathy; R29.810 Facial weakness; R47.81 Slurred speech; R13.10 Dysphagia, unspecified; I12.9 Hypertensive chronic kidney disease with stage 1 through stage 4 chronic kidney disease, or unspecified chronic kidney disease; N18.30 Chronic kidney disease, stage 3 unspecified; K44.9 Diaphragmatic hernia without obstruction or gangrene; F32.A Depression, unspecified; D63.1 Anemia in chronic kidney disease; Z11.52 Encounter for screening for COVID-19; Z79.01 Long term (current) use of anticoagulants; Z86.718 Personal history of other venous thrombosis and embolism; Z86.73 Personal history of transient ischemic attack (TIA), and cerebral infarction without residual deficits; Z89.512 Acquired absence of left leg below knee
CPT/HCPCS: 36415; 36416; 51702; 70450; 70496; 70498; 71045; 80048; 80053; 80061; 80306; 81003; 81015; 82962; 83090; 83516; 83880; 84145; 84443; 85025; 85610; 85730; 86140; 86146; 86147; 87086; 87426; 92507; 92523; 92526; 92610; 93005; 96372; 97161; 97165; 97530; 99285; J0696; J1650; J2060; J2270; J7030; Q9967